=== PATIENT | female | born 1950 | race Caucasian/White ===

== ENCOUNTER 2017-02-08 11:04 | Inpatient (IN) | payer OTHER ==
[2017-02-08 11:45] LABS: BASOPHIL 0.9 % (0-2.0); EOSINOPHIL 1.6 % (0-4.5); MCH 28.3 pg (25.7-33.7); MCHC 32.8 g/dl (32.0-36.0); MEAN CELL VOLUME 86.1 fl (80-96); MEAN PLT VOLUME 8.4 fl (7.5-11.1); NEUTROPHILS 47.4 % (42.8-82.8); PLATELET COUNT 190 K/MM3 (134-434)
--- NOTE | 2017-02-08 11:45 | PDOC ---
History of Present Illness - General History Source: Patient Exam Limitations: No Limitations <Pollo Allan - Last Filed: 02/08/17 14:56> - History of Present Illness Initial Comments: 02/08/17 15:08 Patient is a 66 year old female with significant medical hx of CVA , IDDM, HTN, HLD who is presenting to the ED for dysphagia. According to family, the patient has speech that is difficult to understand since her last visit in the ED in 2015. She was last seen well at 7 AM this morning by her ; the patient was talking on the phone and was reportedly speaking at baseline (per she has somewhat intelligible speech). Around 9:30, the patient woke up her and he reports that she was not making sense and that her speech was a lot worse than before. The states that her blood sugar was measured at 560 by EMS. BP on arrival was slightly hypertensive. PMD: Daily Suárez MD <Argentina Chin - Last Filed: 02/08/17 15:10> - General Chief Complaint: Weakness Stated Complaint: SOB Time Seen by Provider: 02/08/17 11:23 NIH Stroke Scale - Last Known Well Date/Time & Onset Date Last Known Well: 02/08/17 Time Last Known Well: 07:00 - Initial Evaluation Level of consciousness: Alert Ask patient the month and their age: Both incorrect Ask patient to open & close eyes; make fist and let go: Obeys one correctly Best gaze (horizontal eye movement): Normal Visual field testing: No visual field loss Facial paresis (Show teeth/raise eyebrows/close eyes tight): Normal symmetrical movement Motor Function: Left Arm: Normal Motor Function: Right Arm: Some effort against gravity Motor Function: Left Leg: Normal (extends leg 30 degrees for 5 seconds without drift) Motor Function: Right Leg: Drift (exam limited to pts ability to communicate) Limb Ataxia: No ataxia Sensory(Use pinprick test arms,legs,trunk,face/side to side): Normal Best language (Describe picture, name items, read sentences): Severe aphasia Dysarthria (read several words): Near unintelligible or unable to speak Extinction and Inattention: No abnormality - Total Score NIH Stroke Scale Score: 10 <Pollo Allan - Last Filed: 02/08/17 14:56> tPA Exclusion checklist 3-4.5h - Time Elapsed Date last known well: 02/08/17 Time last known well: 07:00 Elaspsed time: Day(s) and 7 Hour(s) and 56 Minutes - Thrombolytic Therapy Candidate Is patient eligible for thrombolytic therapy: No - Ineligibility reason(s) Reasons No tPA given: Outside of window - delayed arrival <Pollo Allan - Last Filed: 02/08/17 14:56> Past History - Past Medical History CVA: Yes (2007, 2012, 2014, RIGHT SIDED RESIDUAL WEAKNESS) Diabetes: Yes (TYPE 2) GI Disorders: Yes (REFLUX) Disorders: No HTN: Yes Hypercholesterolemia: Yes Liver Disease: No Suicide Attempt (Hx): No Thyroid Disease: No - Surgical History Abdominal Surgery: Yes (HERNIA REPAIR X 2) Appendectomy: No Cardiac Surgery: No Cholecystectomy: Yes Lung Surgery: No Neurologic Surgery: No Orthopedic Surgery: No - Immunization History Immunization Up to Date: Yes - Psycho/Social/Smoking Cessation Hx Anxiety: No Suicidal Ideation: No Smoking Status: Yes Smoking History: Never smoked Have you smoked in the past 12 months: No Number of Cigarettes Smoked Daily: 1 If you are a former smoker, when did you quit?: states she smokes a couple per year Information on smoking cessation initiated: No 'Breaking Loose' booklet given: 02/15/15 Hx Alcohol Use: No Drug/Substance Use Hx: No Substance Use Type: None Hx Substance Use Treatment: No <Pollo Allan - Last Filed: 02/08/17 14:56> <Argentina Chin - Last Filed: 02/08/17 15:10> - Past Medical History Allergies/Adverse Reactions: Allergies Allergy/AdvReac Type Severity Reaction Status Date / Time No Known Allergies Allergy Verified 05/19/16 15:17 Home Medications: Ambulatory Orders Aspirin/Dipyridamole [Aggrenox -] 1 combo PO BID 11/14/15 Bimatoprost [Lumigan] 1 each PO HS 05/19/16 Glyburide/Metformin HCl [Glyburide-Metformin 2.5-500 mg] 1 each PO BID 05/19/16 Losartan Potassium [Cozaar -] 50 mg PO DAILY 05/19/16 Omeprazole [Prilosec] 20 mg PO DAILY 05/19/16 Simvastatin [Zocor -] 20 mg PO HS 05/19/16 Review of Systems - Review of Systems Comments:: 02/08/17 15:09 Unable to obtain. <GiuseppeArgentina - Last Filed: 02/08/17 15:10> *Physical Exam - Vital Signs Last Vital Signs Temp Pulse Resp BP Pulse Ox 98.2 F 67 18 179/86 99 02/08/17 11:27 02/08/17 11:27 02/08/17 11:27 02/08/17 11:27 02/08/17 11:27 <Pollo Allan - Last Filed: 02/08/17 14:56> - Vital Signs Last Vital Signs Temp Pulse Resp BP Pulse Ox 98.2 F 67 18 179/86 99 02/08/17 11:27 02/08/17 11:27 02/08/17 11:27 02/08/17 11:27 02/08/17 11:27 - Physical Exam Comments: 02/08/17 15:09 GENERAL: The patient is awake, alert, and fully oriented, Nontoxic - in no acute distress. HEAD: Normocephalic, atraumatic. EYES: extraocular movements intact, sclera anicteric, conjunctiva clear. ENT: Normal voice, Moist mucous membranes. NECK: Normal range of motion, supple LUNGS: Breath sounds equal, clear to auscultation bilaterally. No wheezes, no rhonchi, no rales. HEART: Regular rate and rhythm, normal S1 and S2 without murmur, rub or gallop. ABDOMEN: Soft, nontender, normoactive bowel sounds. No guarding, no rebound. . No CVA tenderness EXTREMITIES: Normal range of motion, no edema. NEUROLOGICAL: No facial assymetry, apahsic, RUE weakness, strength 5/5 on LUE, strength LLE 5/5 strength RLE -5/5, but limited ability to participate in neuro exam, finger to nose seems intact, sensation intact, cn2-12 intact, upgoing babinsky on RUE. PSYCH: uanble to asess SKIN: Warm, Dry, normal turgor. <Argentina Chin - Last Filed: 02/08/17 15:10> Heart Score/ECG Review - ECG Impressions Comment:: 02/08/17 12:39 Twelve-lead EKG was performed and reviewed by me. There is normal sinus rhythm with a normal rate. Rate of 61 nonspecific inventricular block flipped t waves in III and V3 <Pollo Allan - Last Filed: 02/08/17 14:56> ED Treatment Course - LABORATORY CBC & Chemistry Diagram: 02/08/17 11:40 02/08/17 11:40 - RADIOLOGY Radiology Studies Ordered: Category Date Time Status HEAD CT (STROKE) [CT] Stat CT Scan 02/08/17 11:36 Ordered <Pollo Allan - Last Filed: 02/08/17 14:56> - LABORATORY CBC & Chemistry Diagram: 02/08/17 11:40 02/08/17 11:40 - ADDITIONAL ORDERS Additional order review: Laboratory Results 02/08/17 11:40 INR 1.00 02/08/17 11:40 RBC 4.11 MCV 86.1 MCHC 32.8 RDW 14.0 MPV 8.4 Neutrophils % 47.4 Lymphocytes % 40.6 H Monocytes % 9.5 Eosinophils % 1.6 Basophils % 0.9 - RADIOLOGY Radiograph Interpretation: 02/08/17 12:[address] Impression: No evidence of acute intracranial hemorrhage, edema, midline shift, mass effect , or skull fracture. Old left cerebral infarct involving the left temporal lobe, parietal lobe with compensatory ex vacuo dilatation of the left lateral ventricle including temporal horn, Chronic ischemic changes in the left maira insular region, basal ganglia. Moderate coalescence supratentorial chronic white matter microangiopathic ischemic changes (left > right). CT evidence of acute territorial ischemia. Reported By: Vamshi Nelson MD <Argentina Chin - Last Filed: 02/08/17 15:10> Medical Decision Making - Medical Decision Making 02/08/17 11:57 66y F hx of IDDM, CVA (residual RUE weakness, and some dysarthria), HTN, HL presents for concern of possible stroke. The patient was heard speaking to her friend on the phone at 7am on the phone at baseline, and at 9:30, the pts went to wake up her and speech was unintelligible and much worse than baseline. On arrival the pts BGM was read as 'high'. magdaleno calzada was called, and ct was obtained, however pt is not a TPA candidate as last known nromal was at 7am, approx 4 hrs prior to arrival. 02/08/17 11:[address] Ashley regarding stroke code Agreed that potential for stroke vs hyperglycemia but is out of window for tpa 02/08/17 12:34 ct head negative 02/08/17 12:[address] suárez agreed with admission for further management states her neurologist is dr. Blum - will consult dr. blum 02/08/17 13:00 02/08/17 13:02 case dw BUDGET SPECIALIST Pete agreed with admission for further mangemnet in stroke unit Case discussed in detail with admitting physician including history, physical exam and ancillary studies. Admitting physician has assumed care for the patient, will follow all pending diagnostics and will complete the evaluation and treatment. CRITICAL CARE DOCUMENTATION: I spent ~35 minutes of Critical Care time, excluding separately billable procedures, involving high complexity decision making to assess, manipulate and support vital system function(s) to treat single or multiple vital organ system failure and/or to prevent further life threatening deterioration of the patient' s condition. 02/08/17 14:45 <Pollo Allan - Last Filed: 02/08/17 14:56> *DC/Admit/Observation/Transfer - Discharge Dispostion Admit: Yes <Pollo Allan - Last Filed: 02/08/17 14:56> - Attestations Scribe Attestion: 02/08/17 15:10 Documentation prepared by Argentina Chin, acting as medical fee clerk for Pollo Allan MD. <Argentina Chin - Last Filed: 02/08/17 15:10> Diagnosis at time of Disposition: Dysarthria, Hyperglycemia - Discharge Dispostion Condition at time of disposition: Guarded
[2017-02-08] MEDS: SODIUM CHLORIDE 1,000 ML IV SCH (11:59)
[2017-02-08 12:09] LABS: VENOUS PH 7.36 (7.32-7.42)
[2017-02-08 12:11] LABS: VENOUS BLOOD GAS HCO3 25.9 meq/L (19-25)
[2017-02-08 12:14] LABS: ALK PHOS 101 U/L (45-117); ANION GAP 9 (8-16); BILIRUBIN,TOTAL 0.7 mg/dL (0.2-1.0); CALCIUM 9.4 mg/dL (8.5-10.1); CHOLESTEROL 179 mg/dL (50-200); CO2 30 mmol/L (21-32); COCKROFT - GAULT 57.4515; LDL CHOLESTEROL (ONLY SJRH) 103 mg/dL (5-100); SGOT/AST 11 U/L (15-37); SGPT/ALT 14 U/L (12-78); TOT PROT 7.5 g/dl (6.4-8.2); TROPONIN I < 0.02 ng/ml (0.00-0.05)
[2017-02-08 12:18] LABS: GLUCOSE,RANDOM 431 mg/dL (74-106)
[2017-02-08] MEDS ORDERED: ASPIRIN 81 MG CHEWABLE TABLETS PO ONE (12:33)
[2017-02-08] MEDS ORDERED: INSULIN REGULAR HUMAN 100 UNITS/ML *VIAL IVPUSH ONE (12:35)
[2017-02-08] MEDS ORDERED: ASPIRIN 81 MG CHEWABLE TABLETS ONE (12:38)
[2017-02-08] MEDS ORDERED: INSULIN REGULAR HUMAN 100 UNITS/ML *VIAL ONE (12:39)
--- NOTE | 2017-02-08 13:05 | HP ---
CHIEF COMPLAINT: altered mental status, slurred/dysarthria speech. PCP: Jose Armando De La Paz HISTORY OF PRESENT ILLNESS: 66y F hx of IDDM, CVA (residual RUE weakness, and some dysarthria), HTN, HL presents for concern of possible stroke. The patient was heard speaking to her friend on the phone at 7am on the phone at baseline, and at 9:30, the pts went to wake up her and speech was unintelligible and much worse than baseline. On arrival the pts BGM was read as 'high'. magdaleno calzada was called, and ct was obtained, however pt is not a TPA candidate as last known nromal was at 7am, approx 4 hrs prior to arrival. While in the ER a Magdaleno Eric was called however she was out of the window for any TPA. ER course was notable for: (1) hyperglycemia with out DKA, treated with insulin (2) dysarthria, monitor for any changes, (3) Recent Travel: PAST MEDICAL HISTORY: CVA x 3 with right arm weakness and some dysarthria but now worsening, HTN, HLD , IDDM, PAST SURGICAL HISTORY: Social History: Smoking: Alcohol: Drugs: Family History: Allergies No Known Allergies Allergy (Verified 05/19/16 15:17) HOME MEDICATIONS: Home Medications Medication Instructions Recorded Aspirin/Dipyridamole [Aggrenox -] 1 combo PO BID 11/14/15 Bimatoprost [Lumigan] 1 each PO HS 05/19/16 Glyburide/Metformin HCl 1 each PO BID 05/19/16 [Glyburide-Metformin 2.5-500 mg] Losartan Potassium [Cozaar -] 50 mg PO DAILY 05/19/16 Omeprazole [Prilosec] 20 mg PO DAILY 05/19/16 Simvastatin [Zocor -] 20 mg PO HS 05/19/16 REVIEW OF SYSTEMS CONSTITUTIONAL: Absent: fever, chills, diaphoresis, generalized weakness, malaise, loss of appetite, weight change HEENT: Absent: rhinorrhea, nasal congestion, throat pain, throat swelling, difficulty swallowing, mouth swelling, ear pain, eye pain, visual changes CARDIOVASCULAR: Absent: chest pain, syncope, palpitations, irregular heart rate, lightheadedness , peripheral edema RESPIRATORY: Absent: cough, shortness of breath, dyspnea with exertion, orthopnea, wheezing, stridor, hemoptysis GASTROINTESTINAL: Absent: abdominal pain, abdominal distension, nausea, vomiting, diarrhea, constipation, melena, hematochezia GENITOURINARY: Absent: dysuria, frequency, urgency, hesitancy, hematuria, flank pain, genital pain MUSCULOSKELETAL: Absent: myalgia, arthralgia, joint swelling, back pain, neck pain SKIN: Absent: rash, itching, pallor HEMATOLOGIC/IMMUNOLOGIC: Absent: easy bleeding, easy bruising, lymphadenopathy, frequent infections ENDOCRINE: Absent: unexplained weight gain, unexplained weight loss, heat intolerance, cold intolerance NEUROLOGIC: Absent: headache, focal weakness or paresthesias, dizziness, unsteady gait, seizure, mental status changes, bladder or bowel incontinence (+) dysarthria, newer changes and chronic right sided weakness PSYCHIATRIC: Absent: anxiety, depression, suicidal or homicidal ideation, hallucinations. PHYSICAL EXAMINATION Vital Signs - 24 hr 02/08/17 11:27 Temperature 98.2 F Pulse Rate 67 Respiratory 18 Rate Blood Pressure 179/86 O2 Sat by Pulse 99 Oximetry (%) GENERAL: Awake, alert, and fully oriented, in no acute distress. HEAD: Normal with no signs of trauma. NECK: Normal range of motion, supple without lymphadenopathy, JVD, or masses. LUNGS: Breath sounds equal, clear to auscultation bilaterally. No wheezes, and no crackles. No accessory muscle use. HEART: Regular rate and rhythm, normal S1 and S2 without murmur, rub or gallop. ABDOMEN: Soft, nontender, not distended, normoactive bowel sounds, no guarding, no rebound, no masses. No hepatomegaly or splenomegaly. MUSCULOSKELETAL: Normal range of motion at all joints. No bony deformities or tenderness. No CVA tenderness. right arm weakness, chronic UPPER EXTREMITIES: 2+ pulses, warm, well-perfused. No cyanosis. No clubbing. No peripheral edema. LOWER EXTREMITIES: 2+ pulses, warm, well-perfused. No calf tenderness. No peripheral edema. NEUROLOGICAL: Cranial nerves II-XII intact. Normal speech. Normal gait. PSYCHIATRIC: Cooperative. Good eye contact. Appropriate mood and affect. SKIN: Warm, dry, normal turgor, no rashes or lesions noted, normal capillary refill. Laboratory Results - last 24 hr 02/08/17 02/08/17 02/08/17 11:40 11:40 11:40 WBC 5.0 D RBC 4.11 Hgb 11.6 Hct 35.4 MCV 86.1 MCHC 32.8 RDW 14.0 Plt Count 190 MPV 8.4 Neutrophils % 47.4 Lymphocytes % 40.6 H Monocytes % 9.5 Eosinophils % 1.6 Basophils % 0.9 INR 1.00 VBG pH POC VBG pCO2 POC VBG pO2 Mixed VBG HCO3 Sodium 136 Potassium 4.5 Chloride 97 L Carbon Dioxide 30 Anion Gap 9 BUN 22 H D Creatinine 1.0 Creat Clearance w eGFR 55.47 Random Glucose 431 H* Calcium 9.4 Total Bilirubin 0.7 AST 11 L D ALT 14 D Alkaline Phosphatase 101 Creatine Kinase 68 Troponin I < 0.02 Total Protein 7.5 Albumin 4.0 Triglycerides 144 D Cholesterol 179 D Total LDL Cholesterol 103 H HDL Cholesterol 59 D Blood Type Antibody Screen 02/08/17 02/08/17 11:40 12:00 WBC RBC Hgb Hct MCV MCHC RDW Plt Count MPV Neutrophils % Lymphocytes % Monocytes % Eosinophils % Basophils % INR VBG pH 7.36 POC VBG pCO2 47.0 POC VBG pO2 48.0 Mixed VBG HCO3 25.9 H Sodium Potassium Chloride Carbon Dioxide Anion Gap BUN Creatinine Creat Clearance w eGFR Random Glucose Calcium Total Bilirubin AST ALT Alkaline Phosphatase Creatine Kinase Troponin I Total Protein Albumin Triglycerides Cholesterol Total LDL Cholesterol HDL Cholesterol Blood Type O POSITIVE Antibody Screen Negative Head CT Impression: No evidence of acute intracranial hemorrhage, edema, midline shift, mass effect , or skull fracture. Old left cerebral infarct involving the left temporal lobe, parietal lobe with compensatory ex vacuo dilatation of the left lateral ventricle including temporal horn, Chronic ischemic changes in the left maira insular region, basal ganglia. Moderate coalescence supratentorial chronic white matter microangiopathic ischemic changes (left > right). CT evidence of acute territorial ischemia. Reported By: Vamshi Nelson MD ASSESSMENT/PLAN: 66 yr old female with changes to her already difficult speak and dysarthria as well as hyperglycemia without DKA 1. Dysarthria -swallow exam -monitor for changes continually -pulse ox sats -speech and cog evaluation -head CT completed. -received ASA 162 in ER and outside the window for TPA 2. hyperglycemia -neg for DKA -finger sticks and sliding scale ordered for monitoring -ADA diet -IVF as needed -A1C ordered routine 3. HTN -Continue meds 4. GI/DVT ppx Visit type - Emergency Visit Emergency Visit: Yes ED Registration Date: 02/08/17 Care time: The patient presented to the Emergency Department on the above date and was hospitalized for further evaluation of their emergent condition. - New Patient This patient is new to me today: Yes Date on this admission: 02/08/17 - Critical Care Critical Care patient: No
[2017-02-08 13:12] LABS: URINE APPEARANCE CLEAR; URINE BILIRUBIN NEGATIVE (NEGATIVE); URINE BLOOD NEGATIVE (NEGATIVE); URINE COLOR STRAW; URINE GLUCOSE (UA) 3+ (NEGATIVE); URINE KETONE NEGATIVE (NEGATIVE); URINE LEUK ESTERASE NEGATIVE (NEGATIVE); URINE NITRITE NEGATIVE (NEGATIVE); URINE PROTEIN NEGATIVE (NEGATIVE); URINE UROBILINOGEN NEGATIVE E.U./dl (0.2-1.0)
[2017-02-08] MEDS ORDERED: HEMOQUE TEST 1 EACH EACH ONE (14:04)
[2017-02-08] MEDS ORDERED: LABETALOL HCL 5 MG/1 ML (100MG/20 ML VIAL) IVPUSH ONE (14:08)
[2017-02-08] MEDS ORDERED: LABETALOL HCL 5 MG/1 ML (200MG/40ML VIAL) IVPB ONE (14:10)
--- NOTE | 2017-02-08 14:56 | CONSULT ---
Admitting History and Physical - Admission History of Present Illness: Peer EMR: "HISTORY OF PRESENT ILLNESS: 66y F hx of IDDM, CVA (residual RUE weakness, and some dysarthria), HTN, HL presents for concern of possible stroke. The patient was heard speaking to her friend on the phone at 7am on the phone at baseline, and at 9:30, the pts went to wake up her and speech was unintelligible and much worse than baseline. On arrival the pts BGM was read as 'high'. code calzada was called, and ct was obtained, however pt is not a TPA candidate as last known nromal was at 7am, approx 4 hrs prior to arrival. While in the ER a Code Eric was called however she was out of the window for any TPA. ER course was notable for: (1) hyperglycemia with out DKA, treated with insulin (2) dysarthria, monitor for any changes," Known to me from speech/language evaluation for Aphasia 06/2016. Pt presented with moderate to severe Aphasia/Apraxia which varies from non verbal,rare responses to some spontaneosly retrieval of strings of words, containing neologisms and paraphasic errors, and perseveration. She was unable to name upon confrontation, repeat her name or simple words, or count in unison She could write her first jannie but not say it. Examples of verbalizations included "more better", "excuse me", "doesnt matter", "my daughter, my first", "three boys", "I can nothing" "I was to xxxx but can't do it." She was referred to a bilingual speech pathologist for follow up. As compared to my last interaction with this pt in 2016, there is a significant deterioration in functional language legal receptionist and expression. Family was not present to interview. History Source: Medical Record Limitations to Obtaining History: Language Barrier, Other (Aphasia. Drying Can Worker assisted) - Past Medical History EDUCATION TRAINER: Yes: CVA, TIA Cardiovascular: Yes: HTN, Hyperlipdemia Endocrine: Yes: Diabetes Mellitus - Smoking History Smoking history: Never smoked Have you smoked in the past 12 months: No Aproximately how many cigarettes per day: 1 If you are a former smoker, when did you quit?: states she smokes a couple per year - Alcohol/Substance Use Hx Alcohol Use: No - Social History ADL: Independent History of Recent Travel: No History - Admission Reason For Visit: DYSATHRIA,HYPERGLYCEMIA - Diagnostics X-ray: Report Reviewed CT Scan: Report Reviewed - General Mental Status: Awake and Alert Attention: Intact Ability to Follow Directions: Poor - Hearing Hearing: Functional Speech Evaluation - Communication Primary Language: RWANDAN Communication: Yes: Aphasia, Language Barrier Oral Expression Ability: Yes: Severe Impairment - Speech Production Apraxia: Yes Able to Make Needs Known: Yes: Severely Impaired Intelligibility: Yes: Severely Impaired - Speech Characteristics Voice Loudness: Normal Voice Pitch: Yes: Normal Voice Phonatory-based Quality: Yes: Normal Speech Pattern: Impaired Speech Clarity: < 25% Nasal Resonance: Normal Articulation: Yes: Precise - Language/Auditory Comprehension Observation: Able to respond to yes/no queries: No (inconsistent and unreliable) , Yes/No Confusion: Yes, Comprehends Conversational Speech: Yes (social speech) , Benefits from Repetiton: Yes - Language/Verbal Expression Aphasia: Yes: Anomia, Impaired Repetition (unable to repeat), Paraphrasic Errors , Neologisms, Apraxia, Sound Errors Able to Respond to Simple Queries: Yes: Severely Impaired Able to Communicate Wants and Needs: Yes: Severely Impaired Functional Communication Status: Yes: Severely Impaired - Swallow Evaluation/Bedside Assessment Current Nutritional Intake: Regular, Thin Liquids Oral Secretions: Yes: WFL Timing of Swallow: WFL Coughing/Throat Clear: No Change in Voice: No Recommendations - Speech Evaluation, Impression/Plan Impression: As compared to my last interaction with this pt in 2016, there is a significant deterioration in functional language legal receptionist and expression. Family was not present to interview. Pt followed rare whole body commands, with yes/no responses inconsistent and unreliable.Verbal output was predominantly unintelligible jargon, sounding like Argentine, but unintelligible to a Argentine speaker. No frustration demonstated.No dysarthria or dysphagia. - Disposition Discharge to: Alf Facility (with Argentine speaking sp path ideally ( eg [facility] [place])) - Dysphagia Impressions/Plan Dysphagia Impressions: Ongoing Evaluation *Silent aspiration: cannot be R/O at bedside Recommendations: Neuro Consult
[2017-02-08 15:23] VITALS: BMI 26.4
[2017-02-08] MEDS ORDERED: INSULIN SLIDING SCALE (NOVOLOG) 1 VIAL SQ SCH ×3 (16:30)
[2017-02-08] MEDS ORDERED: metFORMIN HCL 500 MG TABLET (FP) PO SCH (16:30)
[2017-02-08] MEDS ORDERED: glyBURIDE 2.5 MG TABLET (FP) PO SCH (16:30)
[2017-02-08] MEDS: metFORMIN HCL 500 MG TABLET (FP) PO SCH (16:53)
[2017-02-08] MEDS: INSULIN SLIDING SCALE (NOVOLOG) 1 VIAL SQ SCH ×2 (16:54→21:58)
[2017-02-08] MEDS ORDERED: PT OWN MED DRAWER 7, Y5N ONE (21:52)
[2017-02-08] MEDS: BIMATOPROST OU SCH (21:53)
[2017-02-08] MEDS: ATORVASTATIN CA 10 MG TABLET (FP) PO SCH (21:55)
[2017-02-08] MEDS: QUEtiapine FUMARATE 25 MG TABLET (FP) PO SCH (21:55)
[2017-02-08] MEDS ORDERED: PATIENT'S OWN MEDICATION (NON-FORMULARY) (Glyburide/Metformin Hcl [Glyburide-Metformin 2.5 PO SCH (22:00)
[2017-02-08] MEDS ORDERED: ASPIRIN/DIPYRIDAMOLE 25 MG/200 MG CAPSULE (FP) PO SCH (22:00)
[2017-02-08] MEDS ORDERED: BIMATOPROST PO SCH (22:00)
[2017-02-09] MEDS: metFORMIN HCL 500 MG TABLET (FP) PO SCH ×2 (06:16→17:18)
[2017-02-09] MEDS: INSULIN SLIDING SCALE (NOVOLOG) 1 VIAL SQ SCH ×4 (06:17→21:20)
[2017-02-09 07:26] LABS: MCH 28.7 pg (25.7-33.7); MEAN CELL VOLUME 86.9 fl (80-96); MEAN PLT VOLUME 8.1 fl (7.5-11.1); PLATELET COUNT 179 K/MM3 (134-434); RDW 14.2 % (11.6-15.6)
[2017-02-09 07:46] LABS: INR 1.02 (0.82-1.09); PROTHROMBIN TIME (PATIENT) 11.2 SEC (9.98-11.88)
[2017-02-09 07:49] LABS: ACTIVATED PTT 31.7 SECONDS (26.9-34.4)
[2017-02-09 07:58] LABS: CALCIUM 8.8 mg/dL (8.5-10.1)
[2017-02-09 08:00] LABS: COCKROFT - GAULT 61.6335; CREATININE 0.9 mg/dL (0.55-1.02)
[2017-02-09] MEDS: QUEtiapine FUMARATE 25 MG TABLET (FP) PO SCH ×2 (09:22→21:20)
[2017-02-09] MEDS: PANTOPRAZOLE 20 MG TABLET (FP) PO SCH (09:22)
[2017-02-09] MEDS: BIMATOPROST OU SCH (09:43)
[2017-02-09] MEDS ORDERED: METOPROLOL SUCCINATE 25 MG TAB.SR.24H (FP) PO SCH (10:00)
[2017-02-09] MEDS ORDERED: LOSARTAN POTASSIUM 50 MG TABLET (FP) PO SCH (10:00)
--- NOTE | 2017-02-09 11:21 | EKG ---
Test Reason : Blood Pressure : / mmHG Vent. Rate : 061 BPM Atrial Rate : 061 BPM P-R Int : 132 ms QRS Dur : 126 ms QT Int : 438 ms P-R-T Axes : 047 -25 -09 degrees QTc Int : 440 ms POOR DATA QUALITY, INTERPRETATION MAY BE ADVERSELY AFFECTED NORMAL SINUS RHYTHM RIGHT BUNDLE BRANCH BLOCK ABNORMAL ECG Confirmed by SHELTON BULLOCK MD ([id number]) on 02/09/2017 11:21:08 AM Referred By: Confirmed By:SHELTON BULLOCK MD
[2017-02-09] MEDS ORDERED: INSULIN (NOVOLOG) ASPART 100 UNITS/ML 10ML VIAL ONE ×2 (12:15→21:18)
[2017-02-09] MEDS: CLOPIDOGREL BISULFATE 75 MG TABLET (FP) PO SCH (12:16)
[2017-02-09] MEDS: SODIUM CHLORIDE 1,000 ML IV SCH (12:17)
--- NOTE | 2017-02-09 14:01 | PN ---
Physical Exam: SUBJECTIVE: Patient seen and examined at bedside. OBJECTIVE: Vital Signs Period Temp Pulse Resp BP Sys/Glass Pulse Ox Last 24 Hr 97.4 F-98.5 F 56-73 17-18 135-199/63-104 96-98 GENERAL/NEURO: The patient is awake, alert. Speech is clear and understandable but patient is confused. Cannot state her name. Points to her wrist band and states "that's my sister." Thinks she is home. When redirected to her name and surroundings she became tearful, "I'm confused." Cranial nerves II through XII grossly intact. Gait not observed. HEAD: Normal with no signs of trauma. EYES: PERRL, extraocular movements intact, sclera anicteric, conjunctiva clear. No ptosis. LUNGS: Breath sounds equal, clear to auscultation bilaterally, no wheezes, no crackles, no accessory muscle use. HEART: Regular rate and rhythm, S1, S2 without murmur, rub or gallop. ABDOMEN: Soft, nontender, nondistended, normoactive bowel sounds, no guarding, no rebound, no hepatosplenomegaly, no masses. EXTREMITIES: 2+ pulses, warm, well-perfused, no edema. Laboratory Results - last 24 hr 02/08/17 02/08/17 02/08/17 14:08 16:52 20:34 WBC RBC Hgb Hct MCV MCHC RDW Plt Count MPV INR PTT (Actin FS) Sodium Potassium Chloride Carbon Dioxide Anion Gap BUN Creatinine POC Glucometer [phone] 159 Random Glucose Hemoglobin A1c % Calcium Triglycerides Cholesterol Total LDL Cholesterol HDL Cholesterol 02/09/17 02/09/17 02/09/17 00:00 05:17 06:00 WBC 8.0 D RBC 3.84 Hgb 11.0 Hct 33.3 MCV 86.9 MCHC 33.0 RDW 14.2 Plt Count 179 MPV 8.1 INR PTT (Actin FS) Sodium Potassium Chloride Carbon Dioxide Anion Gap BUN Creatinine POC Glucometer 76 123 Random Glucose Hemoglobin A1c % Calcium Triglycerides Cholesterol Total LDL Cholesterol HDL Cholesterol 02/09/17 02/09/17 02/09/17 06:00 06:00 06:00 WBC RBC Hgb Hct MCV MCHC RDW Plt Count MPV INR 1.02 PTT (Actin FS) 31.7 Sodium 140 Potassium 4.1 Chloride 103 Carbon Dioxide 26 Anion Gap 11 BUN 20 H Creatinine 0.9 POC Glucometer Random Glucose 153 H D Hemoglobin A1c % 10.5 H D Calcium 8.8 Triglycerides 122 Cholesterol 165 Total LDL Cholesterol 97 HDL Cholesterol 55 02/09/17 12:13 WBC RBC Hgb Hct MCV MCHC RDW Plt Count MPV INR PTT (Actin FS) Sodium Potassium Chloride Carbon Dioxide Anion Gap BUN Creatinine POC Glucometer 252 Random Glucose Hemoglobin A1c % Calcium Triglycerides Cholesterol Total LDL Cholesterol HDL Cholesterol Active Medications Generic Name Dose Route Start Last Admin Trade Name Kiana PRN Reason Stop Dose Admin Atorvastatin Calcium 10 mg 02/08/17 22:00 02/08/17 21:55 Lipitor - PO 10 mg HS MINISTERIO Administration Clopidogrel Bisulfate 75 mg 02/09/17 10:30 02/09/17 12:16 Plavix - PO 75 mg DAILY MINISTERIO Administration Sodium Chloride 1,000 mls @ 42 mls/hr 02/08/17 11:45 02/09/17 12:17 Normal Saline - IV 42 mls/hr ASDIR MINISTERIO Administration Insulin Aspart 1 vial 02/08/17 16:30 02/09/17 12:16 Novolog Vial Sliding Scale - SQ 6 unit ACHS MINISTERIO Administration Protocol Metformin HCl 1,000 mg 02/08/17 16:30 02/09/17 06:16 Glucophage - PO 1,000 mg BIDAC MINISTERIO Administration Metoprolol Succinate 25 mg 02/09/17 10:00 02/09/17 09:22 Toprol Xl - PO 25 mg DAILY MINISTERIO Administration Non-Formulary Medication 1 each 02/08/17 22:00 02/09/17 09:43 Bimatoprost [Lumigan] OU Not Given BID MINISTERIO Pantoprazole Sodium 20 mg 02/09/17 10:00 02/09/17 09:22 Protonix - PO 20 mg DAILY MINISTERIO Administration Quetiapine Fumarate 12.5 mg 02/08/17 22:00 02/09/17 09:22 Seroquel - PO 12.5 mg BID MINISTERIO Administration Imaging 02/08/17 CT head: no acute process; old left cerebral infarct involving the left temporal and parietal lobes, compressive dilatation of the left lateral ventricle including the left temporal horn; chronic ischemic changes ASSESSMENT/PLAN 66 year-old female with a PMH of HTN, HLD, CVA x 2 (2011, 2012), TIA (2014), and IDDM, admitted for worsening speech. Dysarthria r/o CVA v. TIA --02/08 CT head: no acute process --recent cardiac workup unremarkable; 11/28/16 echo showed LV normal, RV normal, trace to mild MR and TR; 11/28/16 Holter monitor showed sinus rhythm, no afib/aflutter, no dysrhythmias --continue statin, Plavix (NOTE: confirmed with Ana María's patient is on Plavix; last took aggrenox in August 2016) --will hold daytime seroquel to better assess mental status; change to [facility] --request for neuro consult for Dr. De La Paz entered IDDM --blood glucose was 431 on admission, today 153 --continue metformin, Novolog sliding scale coverage F/E/N Fluids: PO intake adequate Electrolytes: replete as indicated Nutrition: diabetic, low sodium DVT prophylaxis: subq heparin Physical therapy evaluation Dispo: continues to require inpatient care. Visit type - Emergency Visit Emergency Visit: Yes ED Registration Date: 02/08/17 Care time: The patient presented to the Emergency Department on the above date and was hospitalized for further evaluation of their emergent condition. - New Patient This patient is new to me today: Yes Date on this admission: 02/09/17 - Critical Care Critical Care patient: No
[2017-02-09] MEDS: HEPARIN NA (PORCINE) 5,000 UNITS/ML 1ML VIAL SQ SCH (21:19)
[2017-02-09] MEDS: ATORVASTATIN CA 10 MG TABLET (FP) PO SCH (21:20)
[2017-02-09] MEDS: LATANOPROST 0.005% OPHTH SOLN 2.5ML BOTTLE OU SCH (21:25)
[2017-02-10] MEDS: SODIUM CHLORIDE 1,000 ML IV SCH ×2 (02:00→16:13)
[2017-02-10] MEDS: INSULIN SLIDING SCALE (NOVOLOG) 1 VIAL SQ SCH ×4 (06:04→21:33)
[2017-02-10] MEDS: metFORMIN HCL 500 MG TABLET (FP) PO SCH ×2 (06:04→17:19)
[2017-02-10] MEDS ORDERED: PT OWN MED DRAWER 7, Y5N ONE ×2 (06:36→21:29)
[2017-02-10] MEDS: PANTOPRAZOLE 20 MG TABLET (FP) PO SCH (09:27)
[2017-02-10] MEDS: HEPARIN NA (PORCINE) 5,000 UNITS/ML 1ML VIAL SQ SCH ×2 (09:27→21:37)
[2017-02-10] MEDS: METOPROLOL SUCCINATE 25 MG TAB.SR.24H (FP) PO SCH ×2 (09:27→21:36)
[2017-02-10] MEDS: CLOPIDOGREL BISULFATE 75 MG TABLET (FP) PO SCH (09:27)
--- NOTE | 2017-02-10 16:38 | CON.NEURO ---
Consult Consult Specialty:: Neurology for Dr. De La Paz Reason for Consultation:: Possible stroke - History of Present Illness Chief Complaint: Pt. is unable to relate complaint due to aphasia but keeps pointing to her right face. History of Present Illness: 66y F hx of IDDM, CVA (residual RUE weakness, and some dysarthria), HTN, HL presented yesterday for concern of possible stroke. The patient was heard speaking to her friend on the phone at 7am at baseline, and at 9:30 the pt went to wake up her and speech was unintelligible and much worse than baseline. On arrival the pts BGM was read as 'high'. magdaleno calzada was called, and ct was obtained, however pt was not a TPA candidate as last known normal was at 7am, approx 4 hrs prior to arrival. While in the ER a Magdaleno Reyes was called however she was out of the window for any TPA. ER course was notable for: (1) hyperglycemia with out DKA, treated with insulin (2) dysarthria, monitor for any changes, Pt. is unable to relate history due to a sensory aphasia causing diminished comprehension. Only points to her right face as if there is something wring, keeps repeating "my face, my face", also reports difficulty with vision in right eye. - History Source History Provided By: Patient, Medical Record Limitations to Obtaining History: Clinical Condition - Past Medical History BRAND LEAD: Yes: CVA, TIA Cardio/Vascular: Yes: HTN, Hyperlipdemia ...: No Endocrine: Yes: Diabetes Mellitus - Alcohol/Substance Use Hx Alcohol Use: No - Smoking History Smoking history: Never smoked Have you smoked in the past 12 months: No Aproximately how many cigarettes per day: 1 If you are a former smoker, when did you quit?: states she smokes a couple per year - Social History ADL: Independent History of Recent Travel: No Home Medications - Allergies Allergies/Adverse Reactions: Allergies Allergy/AdvReac Type Severity Reaction Status Date / Time No Known Allergies Allergy Verified 05/19/16 15:17 - Home Medications Home Medications: Ambulatory Orders Bimatoprost [Lumigan] 1 drop OU DAILY 02/08/17 Clopidogrel Bisulfate [Plavix -] 75 mg PO DAILY 02/08/17 Famotidine 20 mg PO DAILY 02/08/17 Insulin Glargine,Hum.rec.anlog [Lantus Solostar PEN (NF)] 25 units SQ DAILY Metformin HCl [Glucophage] 1,000 mg PO BID 02/08/17 Metoprolol Succinate [Toprol Xl -] 25 mg PO DAILY 02/08/17 Quetiapine Fumarate [Seroquel -] 12.5 mg PO BID 02/08/17 Simvastatin 20 mg PO DAILY 02/08/17 Physical Exam-Neuro Vital Signs: Vital Signs Temperature 98.1 F 02/10/17 14:00 Pulse Rate 63 02/10/17 14:00 Respiratory Rate 18 02/10/17 14:00 Blood Pressure 135/76 02/10/17 14:00 O2 Sat by Pulse Oximetry (%) 96 02/10/17 10:00 Labs: CBC, BMP 02/09/17 06:00 02/09/17 06:00 INR, PTT INR 1.02 (0.82-1.09) 02/09/17 06:00 - Neuro Exam Level Of Consciousness: Yes: Alert, Oriented to Person, Oriented to Place Speech: Wernicke's Aphasia (+logorrhea, +literal aphasia+impaired comprehension of language) Dominant Hand: Right (+ RUE drift) Mini Mental Exam: Unable to test secondary to sensory aphasia Cranial Nerves II-XII Intact: No (+ right hemianopsia to threat. right cent. facial) Gag: Present DTR's: 0 Left Achilles (Absent left knee jerk, right is 3+), 2+ Right Tricep, 2 + Left Brachioradialis, 2+ Right Brachioradialis, 2+ Right Achilles, 3+ Right Bicep Motor Strength: 4/5: Right Arm (+drift), 5/5: Left Arm, Left Leg, Right Leg (+ 4 +/5 distal LE weakness on right) Gait: Other (slight right hemiparetic gait) NIH Stroke Scale - Total Score NIH Stroke Scale Score: 0 Imaging - Results Cat Scan: Report Reviewed (Old left cerebral infarct involving the left temporal lobe, parietal lobe with compensatory ex vacuo dilatation of the left lateral ventricle including temporal horn, Chronic ischemic changes in the left maira insular region, basal ganglia. Moderate coalescence supratentorial chronic white matter microangiopathic ischemic changes (left > right). CT evidence of acute territorial ischemia. Reported By: Vamshi Nelson MD) Assessment/Plan Pt. is reported to have had CVAx 3, it is unclear whether these events were in the same arterial territory that is noted on head CT. This admission is for what is reported as worsened speech-unclear whether she had dysarthria or worsened aphasia. Pt. o/e has a right field cut, old right cent. facial and right hemiparesis that to my impression is old. There is no evidence of acute ischemia on imaging. Doubt new ischemic event, she may have had glycemic dyscontrol causing worsening of preexisting sensory aphasia or dysarthria. Suggest: 1) MRI brain to see whether there is evidence of acute ischemia 2) Cont. Clopidrogel 75 mg 3) PT/Rehab
--- NOTE | 2017-02-10 16:39 | PN ---
Physical Exam: SUBJECTIVE: Patient seen and examined. Out of bed, ambulating, washing up in the bathroom, chatting with aide. OBJECTIVE: Vital Signs Period Temp Pulse Resp BP Sys/Glass Pulse Ox Last 24 Hr 97.9 F-98.4 F 63-76 18-18 135-166/62-92 96-97 GENERAL: The patient is awake, alert, and fully oriented, in no acute distress. HEAD: Normal with no signs of trauma. EYES: PERRL, extraocular movements intact, sclera anicteric, conjunctiva clear. No ptosis. LUNGS: Breath sounds equal, clear to auscultation bilaterally, no wheezes, no crackles, no accessory muscle use. HEART: Regular rate and rhythm, S1, S2 without murmur, rub or gallop. ABDOMEN: Soft, nontender, nondistended, normoactive bowel sounds, no guarding, no rebound, no hepatosplenomegaly, no masses. EXTREMITIES: 2+ pulses, warm, well-perfused, no edema. NEUROLOGICAL: Cranial nerves II through XII grossly intact. CBCD WBC 8.0 K/mm3 (4.0-10.0) D 02/09/17 06:00 RBC 3.84 M/mm3 (3.60-5.2) 02/09/17 06:00 Hgb 11.0 GM/dL (10.7-15.3) 02/09/17 06:00 Hct 33.3 % (32.4-45.2) 02/09/17 06:00 MCV 86.9 fl (80-96) 02/09/17 06:00 MCHC 33.0 g/dl (32.0-36.0) 02/09/17 06:00 RDW 14.2 % (11.6-15.6) 02/09/17 06:00 Plt Count 179 K/MM3 (134-434) 02/09/17 06:00 MPV 8.1 fl (7.5-11.1) 02/09/17 06:00 CMP Sodium 140 mmol/L (136-145) 02/09/17 06:00 Potassium 4.1 mmol/L (3.5-5.1) 02/09/17 06:00 Chloride 103 mmol/L (98-107) 02/09/17 06:00 Carbon Dioxide 26 mmol/L (21-32) 02/09/17 06:00 Anion Gap 11 (8-16) 02/09/17 06:00 BUN 20 mg/dL (7-18) H 02/09/17 06:00 Creatinine 0.9 mg/dL (0.55-1.02) 02/09/17 06:00 Creat Clearance w eGFR 55.47 (>60) 02/08/17 11:40 Calcium 8.8 mg/dL (8.5-10.1) 02/09/17 06:00 Total Bilirubin 0.7 mg/dL (0.2-1.0) 02/08/17 11:40 AST 11 U/L (15-37) L D 02/08/17 11:40 ALT 14 U/L (12-78) D 02/08/17 11:40 Alkaline Phosphatase 101 U/L (45-117) 02/08/17 11:40 Total Protein 7.5 g/dl (6.4-8.2) 02/08/17 11:40 Albumin 4.0 g/dl (3.4-5.0) 02/08/17 11:40 Active Medications Generic Name Dose Route Start Last Admin Trade Name Blaineq PRN Reason Stop Dose Admin Atorvastatin Calcium 10 mg 02/08/17 22:00 02/09/17 21:20 Lipitor - PO 10 mg HS MINISTERIO Administration Clopidogrel Bisulfate 75 mg 02/09/17 10:30 02/10/17 09:27 Plavix - PO 75 mg DAILY MINISTERIO Administration Heparin Sodium (Porcine) 5,000 unit 02/09/17 22:00 02/10/17 09:27 Heparin - SQ 5,000 unit BID MINISTERIO Administration Sodium Chloride 1,000 mls @ 42 mls/hr 02/08/17 11:45 02/10/17 16:13 Normal Saline - IV Not Given ASDIR MINISTERIO Insulin Aspart 1 vial 02/08/17 16:30 02/10/17 12:32 Novolog Vial Sliding Scale - SQ 4 unit ACHS MINISTERIO Administration Protocol Latanoprost 1 drop 02/09/17 15:47 02/09/17 21:25 Xalatan 0.005% Eye Drops - OU 1 drop HS MINISTERIO Administration Metformin HCl 1,000 mg 02/08/17 16:30 02/10/17 06:04 Glucophage - PO 1,000 mg BIDAC MINISTERIO Administration Metoprolol Succinate 25 mg 02/10/17 10:00 02/10/17 09:27 Toprol Xl - PO 25 mg BID MINISTERIO Administration Pantoprazole Sodium 20 mg 02/09/17 10:00 02/10/17 09:27 Protonix - PO 20 mg DAILY MINISTERIO Administration Quetiapine Fumarate 12.5 mg 02/09/17 22:00 02/09/17 21:20 Seroquel - PO 12.5 mg HS MINISTERIO Administration ASSESSMENT/PLAN: Imaging 02/08/17 CT head: no acute process; old left cerebral infarct involving the left temporal and parietal lobes, compressive dilatation of the left lateral ventricle including the left temporal horn; chronic ischemic changes ASSESSMENT/PLAN 66 year-old female with a PMH of HTN, HLD, CVA x 2 (2011, 2012), TIA (2014), and IDDM, admitted for worsening speech. Dysarthria r/o CVA v. TIA --02/08 CT head: no acute process --recent cardiac workup unremarkable; 11/28/16 echo showed LV normal, RV normal, trace to mild MR and TR; 11/28/16 Holter monitor showed sinus rhythm, no afib/aflutter, no dysrhythmias --continue statin, Plavix (NOTE: confirmed with Ana María's patient is on Plavix; last took aggrenox in August 2016) --hold daytime seroquel to better assess mental status; changed to [facility] --seen and evaluated by neuro, MRI brain ordered IDDM --last three fingersticks 201, 144, 205 --continue metformin, Novolog sliding scale coverage F/E/N Fluids: PO intake adequate Electrolytes: replete as indicated Nutrition: diabetic, low sodium DVT prophylaxis: subq heparin Physical therapy evaluation Dispo: continues to require inpatient care. Full Code. Visit type - Emergency Visit Emergency Visit: Yes ED Registration Date: 02/08/17 Care time: The patient presented to the Emergency Department on the above date and was hospitalized for further evaluation of their emergent condition. - New Patient This patient is new to me today: No - Critical Care Critical Care patient: No
[2017-02-10] MEDS ORDERED: INSULIN (NOVOLOG) ASPART 100 UNITS/ML 10ML VIAL ONE (19:32)
[2017-02-10] MEDS: QUEtiapine FUMARATE 25 MG TABLET (FP) PO SCH (21:35)
[2017-02-10] MEDS: ATORVASTATIN CA 10 MG TABLET (FP) PO SCH (21:36)
[2017-02-10] MEDS: LATANOPROST 0.005% OPHTH SOLN 2.5ML BOTTLE OU SCH (21:38)
[2017-02-11] MEDS ORDERED: PT OWN MED DRAWER 7, Y5N ONE ×2 (05:18→21:48)
[2017-02-11] MEDS: metFORMIN HCL 500 MG TABLET (FP) PO SCH ×2 (06:02→16:56)
[2017-02-11] MEDS: INSULIN SLIDING SCALE (NOVOLOG) 1 VIAL SQ SCH ×4 (06:03→21:51)
[2017-02-11 07:16] LABS: MCH 29.1 pg (25.7-33.7); MCHC 33.8 g/dl (32.0-36.0); MEAN CELL VOLUME 86.2 fl (80-96); MEAN PLT VOLUME 8.2 fl (7.5-11.1); PLATELET COUNT 168 K/MM3 (134-434); RDW 14.1 % (11.6-15.6); WHITE BLOOD COUNT 5.7 K/mm3 (4.0-10.0)
[2017-02-11 07:37] LABS: ALBUMIN 3.4 g/dl (3.4-5.0); ANION GAP 7 (8-16); CALCIUM 8.7 mg/dL (8.5-10.1); CO2 28 mmol/L (21-32); GLUCOSE,RANDOM 149 mg/dL (74-106); MAGNESIUM 1.6 mg/dL (1.8-2.4)
[2017-02-11 07:42] LABS: ALK PHOS 70 U/L (45-117); BILIRUBIN,TOTAL 0.7 mg/dL (0.2-1.0); CREATININE 0.8 mg/dL (0.55-1.02); SGOT/AST 13 U/L (15-37); SGPT/ALT 12 U/L (12-78); TOT PROT 6.3 g/dl (6.4-8.2)
[2017-02-11] MEDS: HEPARIN NA (PORCINE) 5,000 UNITS/ML 1ML VIAL SQ SCH ×2 (09:49→21:57)
[2017-02-11] MEDS: METOPROLOL SUCCINATE 25 MG TAB.SR.24H (FP) PO SCH ×2 (09:49→21:49)
[2017-02-11] MEDS: PANTOPRAZOLE 20 MG TABLET (FP) PO SCH (09:49)
[2017-02-11] MEDS: CLOPIDOGREL BISULFATE 75 MG TABLET (FP) PO SCH (09:49)
--- NOTE | 2017-02-11 10:33 | PN ---
Progress Note, MICROBIOLOGICAL ANALYST - Note Progress Note: Pt continues to present with jargon output, rambling with limited ability to be understood by Guyanese speakers. Yes/no responses are unreliable. No Dysarthria or Aphasia noted. Very rare intelligible phrases are produced. Language deficits are worse than when I evaluated her in 2016. She was quite impaired then as well, however, there was some preserved auditory comprehension and production of intelligible words was intermittent and more frequent. Pt is tolerating diet well. Selected Entries 02/09/17 02/09/17 02/09/17 09:59 14:00 18:00 Breakfast 75% Lunch 75% Supper 100% Temperature 02/10/17 02/10/17 02/10/17 01:54 06:15 10:00 Breakfast Lunch Supper Temperature 98.4 F 98 F 98.3 F 02/10/17 02/10/17 02/10/17 14:00 21:00 22:04 Breakfast Lunch Supper 75% Temperature 98.1 F 98.1 F 02/11/17 02/11/17 01:00 05:00 Breakfast Lunch Supper Temperature 98.3 F 97.7 F Ideally, pt would benefit from Guyanese speaking speech path upon d/c. (If NH, [place] may be considered).
[2017-02-11] MEDS ORDERED: MAGNESIUM SULF 50% (8.12 MEQ/2 ML-1 GM VIAL) IVPB ONE (11:15)
--- NOTE | 2017-02-11 13:03 | PN ---
Physical Exam: SUBJECTIVE: Patient seen and examined. Reports feeling much better. States, "I want to go home." Feels that face and speech has improved. Nurse reports no acute change in condition. Pt denies CP, SOB, dizziness. states her speech is back to baseline. OBJECTIVE: Vital Signs - 24 hr 3 02/10/17 02/10/17 02/10/17 14:00 17:00 21:00 Temperature 98.1 F 98.1 F Pulse Rate 63 62 64 Respiratory 18 18 18 Rate Blood Pressure 135/76 182/82 160/59 O2 Sat by Pulse 96 Oximetry (%) 3 02/11/17 02/11/17 01:00 05:00 Temperature 98.3 F 97.7 F Pulse Rate 59 L 58 L Respiratory 18 18 Rate Blood Pressure 163/77 144/83 O2 Sat by Pulse Oximetry (%) GENERAL: The patient is awake, alert, and fully oriented, in no acute distress. HEAD: Normal with no signs of trauma. EYES: PERRL, extraocular movements intact, sclera anicteric, conjunctiva clear. No ptosis. ENT: Ears normal, nares patent, oropharynx clear without exudates, moist mucous membranes. NECK: Trachea midline, full range of motion, supple. LUNGS: Breath sounds equal, clear to auscultation bilaterally, no wheezes, no crackles, no accessory muscle use. HEART: Regular rate and rhythm, S1, S2 without murmur, rub or gallop. ABDOMEN: Soft, nontender, nondistended, normoactive bowel sounds, no guarding, no rebound, no hepatosplenomegaly, no masses. EXTREMITIES: 2+ pulses, warm, well-perfused, no edema. NEUROLOGICAL: Cranial nerves II through XII grossly intact. Gait not observed. RLE 4/5, LLE 5/5, RUE 4/5, LUE 5/5, aphasia noted, tongue midline, mild right facial droop noted. follows commands when given in Greenlandic PSYCH: Normal mood, normal affect. SKIN: Warm, dry, normal turgor, no rashes or lesions noted Laboratory Results - last 24 hr 3 02/10/17 02/10/17 02/11/17 02/11/17 02/11/17 16:45 20:32 05:29 05:41 05:41 WBC 5.7 RBC 3.78 Hgb 11.0 Hct 32.6 MCV 86.2 MCHC 33.8 RDW 14.1 Plt Count 168 MPV 8.2 Neutrophils % Y Lymphocytes % Y Sodium 142 Potassium 4.0 Chloride 107 Carbon Dioxide 28 Anion Gap 7 L BUN 15 D Creatinine 0.8 Creat Clearance w eGFR > 60 POC Glucometer 188 159 141 Random Glucose 149 H Calcium 8.7 Magnesium 1.6 L Total Bilirubin 0.7 AST 13 L ALT 12 Alkaline Phosphatase 70 D Total Protein 6.3 L Albumin 3.4 Active Medications 3 Generic Name Dose Route Start Last Admin Trade Name Freq PRN Reason Stop Dose Admin Atorvastatin Calcium 10 mg 02/08/17 22:00 02/10/17 21:36 Lipitor - PO 10 mg HS MINISTERIO Administration Clopidogrel Bisulfate 75 mg 02/09/17 10:30 02/11/17 09:49 Plavix - PO 75 mg DAILY MINISTERIO Administration Heparin Sodium (Porcine) 5,000 unit 02/09/17 22:00 02/11/17 09:49 Heparin - SQ 5,000 unit BID MINISTERIO Administration Sodium Chloride 1,000 mls @ 42 mls/hr 02/08/17 11:45 02/10/17 16:13 Normal Saline - IV Not Given ASDIR MINISTERIO Insulin Aspart 1 vial 02/08/17 16:30 02/11/17 06:03 Novolog Vial Sliding Scale - SQ Not Given ACHS [facility] Protocol Latanoprost 1 drop 02/09/17 15:47 02/10/17 21:38 Xalatan 0.005% Eye Drops - OU 1 drop HS MINISTERIO Administration Metformin HCl 1,000 mg 02/08/17 16:30 02/11/17 06:02 Glucophage - PO 1,000 mg BIDAC MINISTERIO Administration Metoprolol Succinate 25 mg 02/10/17 10:00 02/11/17 09:49 Toprol Xl - PO 25 mg BID MINISTERIO Administration Pantoprazole Sodium 20 mg 02/09/17 10:00 02/11/17 09:49 Protonix - PO 20 mg DAILY MINISTERIO Administration Quetiapine Fumarate 12.5 mg 02/09/17 22:00 02/10/17 21:35 Seroquel - PO 12.5 mg HS MINISTERIO Administration ASSESSMENT/PLAN: 66 year-old female with a PMH of HTN, HLD, CVA x 2 (2011, 2012), TIA (2014), and IDDM, admitted for worsening speech. Dysarthria r/o CVA v. TIA - 02/08 CT head: no acute process - recent cardiac workup unremarkable; 11/28/16 echo showed LV normal, RV normal, trace to mild MR and TR; 11/28/16 Holter monitor showed sinus rhythm, no afib/aflutter, no dysrhythmias - continue statin, Plavix (NOTE: confirmed with Ana María's patient is on Plavix; last took aggrenox in August 2016) - seroquel changed to QHS to assess mental status better. - seen and evaluated by neuro, recommended cont plavix, MRI brain ordered, still pending Diabetes - FSBS stable - continue metformin, Novolog sliding scale coverage HTN - home toprol increased to BID yesterday, BP slightly high last night, but ok this am. F/E/N Fluids: PO intake adequate Electrolytes: magnesium repleted Nutrition: diabetic, low sodium DVT prophylaxis: subq heparin Physical therapy evaluation completed. Recommend SNF, but pt and declined. Discussed risks/benefits; made aware they are responsible for any adverse outcomes (including fall with potential morbidity) associated with going home instead of SNF Dispo: Full Code. If MRI ok, potential DC this PM. Visit type - Emergency Visit Emergency Visit: Yes ED Registration Date: 02/08/17 Care time: The patient presented to the Emergency Department on the above date and was hospitalized for further evaluation of their emergent condition. - New Patient This patient is new to me today: Yes Date on this admission: 02/11/17 - Critical Care Critical Care patient: No - Discharge Referral Referred to [facility] Med P.C.: No
[2017-02-11 13:35] LABS: PLATELET ESTIMATE ADEQUATE (NORMAL)
[2017-02-11] MEDS ORDERED: MAGNESIUM SULF 50% (8.12 MEQ/2 ML-1 GM VIAL) ONE (15:13)
[2017-02-11] MEDS: SODIUM CHLORIDE 1,000 ML IV SCH (15:24)
--- NOTE | 2017-02-11 21:03 | PN ---
Progress Note (short form) - Note Progress Note: NEUROLOGY FOLLOW-UP; Dr. Sandhu's coverage consultation and Ms. Leung's input are greatly appreciated. This 66 yo RH woman with h/o HTN and DM is s/p 3 CVA's in the past most recently in 06/29 resulting in severe, global aphasia. Admitted last Saturday after wakening with worsening of speech and comprehension associated with BG= [address] of head and MRI of brain (reviewed): Both show moderate, diffuse atrophy with increased ventricular size (L>R), L MCA-territory CVA of varying ages including distal teritory encephalomalcia and diffuse white matter microvascular changes (L>R). But no acute CVA, NIVIA: No bruits NEURO: Follows some simple commands. Gibberish output in Mohawk and french. Right homonomous hemianopsia. Mild right drift with increased reflexes on the right Mild right spastic hemiparesis with mild circumduction but stable gait. IMP: At base line with moderte Left cerebral dysfunction and severe expressive> receptive aphasia. Worsened due to toxic-metabolic exacerbation (hyperglycemia) now improved. SUGGEST: Continue current Rx including Plavix and BP, Glucose control. Out patient neurology f/u and speech Rx. Thank you very much, Randolph De La Paz MD
[2017-02-11] MEDS: ATORVASTATIN CA 10 MG TABLET (FP) PO SCH (21:49)
[2017-02-11] MEDS: QUEtiapine FUMARATE 25 MG TABLET (FP) PO SCH (21:49)
[2017-02-11] MEDS: LATANOPROST 0.005% OPHTH SOLN 2.5ML BOTTLE OU SCH (21:50)
[2017-02-12] MEDS: INSULIN DETEMIR 100 UNITS/ML MDV SQ SCH ×2 (00:48→09:26)
[2017-02-12] MEDS ORDERED: PT OWN MED DRAWER 7, Y5N ONE (05:51)
[2017-02-12] MEDS: INSULIN SLIDING SCALE (NOVOLOG) 1 VIAL SQ SCH ×2 (06:15→12:37)
[2017-02-12 08:00] LABS: COCKROFT - GAULT 79.2455; CREATININE 0.7 mg/dL (0.55-1.02); MAGNESIUM 1.8 mg/dL (1.8-2.4)
--- NOTE | 2017-02-12 08:39 | DS ---
Physical Examination Vital Signs: Vital Signs Temperature 99.2 F 02/12/17 06:00 Pulse Rate 58 L 02/12/17 06:00 Respiratory Rate 20 02/12/17 06:00 Blood Pressure 149/68 02/12/17 06:00 O2 Sat by Pulse Oximetry (%) 95 02/11/17 21:00 Findings/Remarks: GENERAL: The patient is awake, alert, and fully oriented, in no acute distress. HEAD: Normal with no signs of trauma. LUNGS: Breath sounds equal, clear to auscultation bilaterally HEART: Regular rate and rhythm, S1, S2 without murmur, rub or gallop. ABDOMEN: Soft, nontender, nondistended, normoactive bowel sounds NEUROLOGICAL: Cranial nerves II through XII grossly intact. Gait not observed. RLE 4/5, LLE 5/5, RUE 4/5, LUE 5/5, aphasia noted, tongue midline, mild right facial droop noted. follows commands when given in Green[place]ic Labs: CBC, BMP 02/11/17 05:41 02/12/17 05:35 Discharge Summary Reason For Visit: DYSATHRIA,HYPERGLYCEMIA Current Active Problems Dysarthria (Acute) Hyperglycemia (Acute) Hospital Course: 66 year-old female with a PMH of HTN, HLD, CVA x 2 (2011, 2012), TIA (2014), and IDDM, admitted for worsening speech. Dysarthria r/o CVA v. TIA - 02/08 CT head: no acute process - recent cardiac workup unremarkable; 11/28/16 echo showed LV normal, RV normal, trace to mild MR and TR; 11/28/16 Holter monitor showed sinus rhythm, no afib/aflutter, no dysrhythmias - continue statin, Plavix (NOTE: confirmed with Ana María's patient is on Plavix; last took aggrenox in August 2016) - seroquel changed to QHS to assess mental status better. - seen and evaluated by neuro, recommended cont plavix - Brain MRI with no acute infarct. 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 Eat a low carb diet. Avoid sweets and simple starches such as white rice. Referrals: Daily Suárez MD [Staff Physician] - 2 Weeks Randolph De La Paz MD [Staff Physician] - 1 Week Disposition: VNS/HOME HEALTH CARE - Home Medications Comprehensive Discharge Medication List: Ambulatory Orders Bimatoprost [Lumigan] 1 drop OU DAILY 02/08/17 Clopidogrel Bisulfate [Plavix -] 75 mg PO DAILY 02/08/17 Famotidine 20 mg PO DAILY 02/08/17 Simvastatin 20 mg PO DAILY 02/08/17 Insulin (Levemir) [Levemir Vial] 12 units SQ BID #1 ml 02/12/17 Metformin HCl [Glucophage -] 1,000 mg PO BIDAC tablet 02/12/17 Metoprolol Succinate [Toprol XL -] 25 mg PO BID #60 tab 02/12/17 Quetiapine Fumarate [Seroquel -] 12.5 mg PO HS tablet 02/12/17 This patient is new to me today: Yes Date on this admission: 02/11/17 Emergency Visit: No Critical Care patient: No - Discharge Referral Referred to [facility] No
[2017-02-12] MEDS: metFORMIN HCL 500 MG TABLET (FP) PO SCH (09:26)
[2017-02-12] MEDS: HEPARIN NA (PORCINE) 5,000 UNITS/ML 1ML VIAL SQ SCH (09:26)
[2017-02-12] MEDS: CLOPIDOGREL BISULFATE 75 MG TABLET (FP) PO SCH (09:27)
[2017-02-12] MEDS: PANTOPRAZOLE 20 MG TABLET (FP) PO SCH (09:27)
[2017-02-12] MEDS: METOPROLOL SUCCINATE 25 MG TAB.SR.24H (FP) PO SCH (09:27)
[2017-02-12 09:35] VITALS: BP 167/71; PULSE 57; TEMP 98.9
== END 2017-02-12 15:30 | disposition home health service (06) | DRG 638 ==
LOC: JER 11:04 → JERBED 12:42 → J4S 15:28
PROVIDERS: ADMIT Internal Medicine; ATTEND Registered Nurse
DX: E11.65 Type 2 diabetes mellitus with hyperglycemia (principal); I69.351 Hemiplegia and hemiparesis following cerebral infarction affecting right dominant side; R47.01 Aphasia; Z79.4 Long term (current) use of insulin; I10 Essential (primary) hypertension; R47.1 Dysarthria and anarthria; E78.5 Hyperlipidemia, unspecified
CPT/HCPCS: 36415; 70450-TC; 70551-TC; 71010-TC; 80048; 80053; 80061; 81003; 82465; 82550; 82803; 83036; 83718; 83721; 83735; 84478; 84484; 85025; 85027; 85610; 85730; 86850; 86900; 86901; 93005; 93010; 97116-GP; 97161-GP; 99284-25; J1644

== ENCOUNTER 2017-08-31 21:30 | Emergency (ER) | payer OTHER ==
[2017-08-31 21:46] VITALS: TEMP 98.5; BMI 23.6
[2017-08-31 21:54] LABS: BASOPHIL 0.9 % (0-2.0); EOSINOPHIL 2.1 % (0-4.5); MCH 29.2 pg (25.7-33.7); MCHC 33.3 g/dl (32.0-36.0); MEAN CELL VOLUME 87.7 fl (80-96); MEAN PLT VOLUME 7.9 fl (7.5-11.1); NEUTROPHILS 38.5 % (42.8-82.8); PLATELET COUNT 203 K/MM3 (134-434); RDW 13.7 % (11.6-15.6); WHITE BLOOD COUNT 5.7 K/mm3 (4.0-10.0)
--- NOTE | 2017-08-31 21:58 | PDOC ---
Attending Attestation - Resident Resident Name: DebbiePorter - HPI HPI: 09/02/17 09:37 pt presents to the ED complaining of hypergylcemia on home blood sugars. Patient denies complaints to me. - Physicial Exam PE: 09/02/17 09:40 Agree with resident exam. Patient is well appearing and in no acute distress. - Medical Decision Making 09/02/17 09:40 Pt presents to the ED complaining of hypergylcemia. Questionable compliance with levamir. Glucose controlled after IV fluid and insulin in the Ed. Will [id number] home. PAtient will follow up with her PMD within two days.
--- NOTE | 2017-08-31 22:11 | PDOC ---
History of Present Illness - General Chief Complaint: Blood Sugar Problem Stated Complaint: HIGH BLOOD SUGAR Time Seen by Provider: 08/31/17 21:37 - History of Present Illness Initial Comments: 08/31/17 22:09 The patient is a 67 yo f w/ PMH DM, HTN, HLD, CVA was BIBEMS c/o high blood sugars. The patient states that her sugars have been consistently in the 300- 400 range over the past few months, but also has instances when it was in the 500's and was 600 when the patient decided to come to the emergency department. Patient states that she is compliant with her home medications, but describes taking her home long acting insulin inconsistently. Patient is also complaining of burning on urination. Patient was recently seen at [facility] for similar complaints, where she was found to have a urine culture positive for strep. She was prescribed Levaquin which the patient states she took as prescribed without resolution of symptoms. Patient and her deny and change in mental status or any other symptoms. Patient denies shortness of breath, chest pain, fevers, chills, abdominal pain, cough or sick contacts. Past History - Past Medical History Allergies/Adverse Reactions: Allergies Allergy/AdvReac Type Severity Reaction Status Date / Time No Known Allergies Allergy Verified 08/31/17 21:34 Home Medications: Ambulatory Orders Bimatoprost [Lumigan] 1 drop OU DAILY 02/08/17 Clopidogrel Bisulfate [Plavix -] 75 mg PO DAILY 02/08/17 Famotidine 20 mg PO DAILY 02/08/17 Simvastatin 20 mg PO DAILY 02/08/17 Insulin (Levemir) [Levemir Vial] 12 units SQ BID #1 ml 02/12/17 Metformin HCl [Glucophage -] 1,000 mg PO BIDAC tablet 02/12/17 Metoprolol Succinate [Toprol XL -] 25 mg PO BID #60 tab 02/12/17 Quetiapine Fumarate [Seroquel -] 12.5 mg PO HS tablet 02/12/17 CVA: Yes (2007, 2012, 2014, RIGHT SIDED RESIDUAL WEAKNESS) COPD: No Diabetes: Yes (TYPE 2) GI Disorders: Yes (REFLUX) Disorders: No HTN: Yes Hypercholesterolemia: Yes Liver Disease: No Thyroid Disease: No - Surgical History Abdominal Surgery: Yes (HERNIA REPAIR X 2) Appendectomy: No Cardiac Surgery: No Cholecystectomy: Yes Lung Surgery: No Neurologic Surgery: No Orthopedic Surgery: No - Immunization History Immunization Up to Date: Yes - Suicide/Smoking/Psychosocial Hx Smoking Status: Yes Smoking History: Current some day smoker Have you smoked in the past 12 months: No Number of Cigarettes Smoked Daily: 1 If you are a former smoker, when did you quit?: states she smokes a couple per year Information on smoking cessation initiated: No 'Breaking Loose' booklet given: 02/15/15 Hx Alcohol Use: No Drug/Substance Use Hx: No Substance Use Type: None Hx Substance Use Treatment: No Review of Systems - Review of Systems Constitutional: No: Chills, Fever, Malaise HEENTM: No: Blurred Vision, Double Vision Respiratory: No: Cough, Shortness of Breath, SOB with Exertion Cardiac (ROS): No: Chest Pain, Edema, Lightheadedness, Palpitations, Syncope ABD/GI: No: Symptoms Reported, Abdominal Distended, Nausea, Vomiting : Yes: Burning, Dysuria Musculoskeletal: No: Back Pain, Joint Pain Integumentary: No: Bruising, Dryness Neurological: No: Headache, Numbness, Tingling *Physical Exam - Vital Signs Last Vital Signs Temp Pulse Resp BP Pulse Ox 98.5 F 59 L 22 187/86 100 08/31/17 21:38 08/31/17 21:38 08/31/17 21:38 08/31/17 21:38 08/31/17 21:38 - Physical Exam General Appearance: Yes: Appropriately Dressed. No: Apparent Distress HEENT: positive: Normal Voice Neck: positive: Trachea midline. negative: Tender Respiratory/Chest: positive: Lungs Clear, Normal Breath Sounds. negative: Chest Tender, Respiratory Distress, Accessory Muscle Use Cardiovascular: positive: Regular Rhythm, Regular Rate, S1, S2. negative: Edema , JVD, Murmur, Gallop/S3, Gallop/S4 Gastrointestinal/Abdominal: positive: Normal Bowel Sounds, Flat, Soft. negative : Tender Musculoskeletal: positive: Normal Inspection Extremity: positive: Normal Inspection Integumentary: positive: Normal Color, Dry, Warm Neurologic: positive: Fully Oriented, Alert, Normal Mood/Affect, Normal Response ED Treatment Course - LABORATORY CBC & Chemistry Diagram: 08/31/17 21:37 08/31/17 21:38 - ADDITIONAL ORDERS Additional order review: 08/31/17 21:37 RBC 3.88 MCV 87.7 MCHC 33.3 RDW 13.7 MPV 7.9 Neutrophils % 38.5 L Lymphocytes % 46.9 H Monocytes % 11.6 H Eosinophils % 2.1 Basophils % 0.9 Medical Decision Making - Medical Decision Making 08/31/17 22:56 Patient is a 67 yo f w/ PMH DM who comes into the ED c/o high blood sugars and dysuria which did not respond to outpatient abx. It is unclear whether or not the patient is complaint with her home DM medications. Her difficulty with sugar control is likely secondary to the lack of her compliance as well as an active UTI which has not responded to antibiotics. Other serious conditions such as DKA should also be ruled out, however. -CBC, CMP -blood acetone levels -UA -UCX -EKG -S/p 1L NS bolus by EMS. 08/31/17 23:02 -corrected sodium 140 -blood glucose 460 -anion gap closed -Cr 1.1 -BUN 22 -awaiting UA results -will give another liter NS bolus -will give 6u regular insulin IV 09/01/17 00:59 -repeat FS 151 -will feed the patient and give her her home levemir dose of 12u -patient is stable for DC with close follow up -return parameters discussed. *DC/Admit/Observation/Transfer Diagnosis at time of Disposition: Hyperglycemia - Discharge Dispostion Disposition: HOME Condition at time of disposition: Improved Admit: No - Referrals Referrals: Daily Suárez MD [Staff Physician] - - Patient Instructions Printed Discharge Instructions: DI for Hyperglycemia -- Adult Additional Instructions: You should follow up with your primary care doctor within 1-2 days of going home. Please take your medications as prescribed starting tomorrow. If you begin to feel chest pain, shortness of breath or if you notice very high or low sugars or begin to feel confused or if any of your symptoms get worse, please call your doctor or return to the emergency department. - Post Discharge Activity
[2017-08-31 22:18] LABS: ALBUMIN 3.4 g/dl (3.4-5.0); ALK PHOS 90 U/L (45-117); ANION GAP 9 (8-16); BILIRUBIN,TOTAL 0.8 mg/dL (0.2-1.0); CALCIUM 8.5 mg/dL (8.5-10.1); CO2 26 mmol/L (21-32); CREATININE 1.1 mg/dL (0.55-1.02); SGPT/ALT 13 U/L (12-78); TOT PROT 6.7 g/dl (6.4-8.2)
[2017-08-31 22:19] LABS: GLUCOSE,RANDOM 460 mg/dL (74-106); SGOT/AST 4 U/L (15-37)
[2017-08-31 22:32] VITALS: BP 146/65; PULSE 60
[2017-08-31 23:10] LABS: ACETONE SERUM NEGATIVE (NEGATIVE)
[2017-08-31] MEDS ORDERED: SODIUM CHLORIDE 1,000 ML IV STA (23:14)
[2017-08-31 23:25] LABS: URINE APPEARANCE CLEAR; URINE BILIRUBIN NEGATIVE (NEGATIVE); URINE BLOOD NEGATIVE (NEGATIVE); URINE COLOR STRAW; URINE GLUCOSE (UA) 3+ (NEGATIVE); URINE KETONE NEGATIVE (NEGATIVE); URINE NITRITE NEGATIVE (NEGATIVE); URINE PROTEIN NEGATIVE (NEGATIVE); URINE UROBILINOGEN NEGATIVE mg/dL (0.2-1.0)
[2017-09-01] MEDS ORDERED: INSULIN REGULAR HUMAN 100 UNITS/ML *VIAL IVPUSH ONE (00:06)
[2017-09-01] MEDS ORDERED: INSULIN REGULAR HUMAN 100 UNITS/ML *VIAL ONE (00:06)
[2017-09-01] MEDS ORDERED: INSULIN DETEMIR 100 UNITS/ML MDV SQ ONE (00:59)
[2017-09-01 12:22] LABS: URINE LEUK ESTERASE Negative (NEGATIVE)
--- NOTE | 2017-09-02 09:53 | EKG ---
Test Reason : Blood Pressure : / mmHG Vent. Rate : 059 BPM Atrial Rate : 059 BPM P-R Int : 134 ms QRS Dur : 128 ms QT Int : 428 ms P-R-T Axes : 029 -27 -10 degrees QTc Int : 423 ms SINUS BRADYCARDIA RIGHT BUNDLE BRANCH BLOCK ABNORMAL ECG WHEN COMPARED WITH ECG OF 21-AUG-2017 13:22, RIGHT BUNDLE BRANCH BLOCK HAS REPLACED RSR' PATTERN IN V1 Confirmed by GANESH ALATORRE, RICHIE ([id number]) on 09/02/2017 9:53:18 AM Referred By: Confirmed By:RICHIE ANDERSEN MD
== END 2017-09-01 01:20 | disposition home or self-care (01) ==
LOC: JER 21:30
PROC: 3E0337Z Introduction of Electrolytic and Water Balance Substance into Peripheral Vein, Percutaneous Approach (ICD-10-PCS; principal; 2017-08-31)
PROC: 3E033VG Introduction of Insulin into Peripheral Vein, Percutaneous Approach (ICD-10-PCS; 2017-08-31)
PROC: 3E013VG Introduction of Insulin into Subcutaneous Tissue, Percutaneous Approach (ICD-10-PCS; 2017-08-31)
DX: E11.65 Type 2 diabetes mellitus with hyperglycemia (principal); Z79.4 Long term (current) use of insulin; Z79.84 Long term (current) use of oral hypoglycemic drugs; I10 Essential (primary) hypertension; E78.00 Pure hypercholesterolemia, unspecified; K21.9 Gastro-esophageal reflux disease without esophagitis; I69.851 Hemiplegia and hemiparesis following other cerebrovascular disease affecting right dominant side; F17.210 Nicotine dependence, cigarettes, uncomplicated
CPT/HCPCS: 36415; 80053; 81003; 82009; 85025; 87086; 93005; 93010; 96361; 96372; 96374; 99284-25

== ENCOUNTER 2017-09-02 07:19 | Emergency (ER) | payer OTHER ==
--- NOTE | 2017-09-02 07:22 | PDOC ---
Attending Attestation - HPI HPI: 09/02/17 08:17 The patient is a 67 year old female, with a significant past medical history of HTN, HLD, Diabetes CVA (3x), residual speech deficits, who was BIBA for blood sugar of 449. - Physicial Exam PE: 09/02/17 08:14 GENERAL: Awake, alert, and fully oriented, in no acute distress HEAD: No signs of trauma EYES: PERRLA, EOMI, sclera anicteric, conjunctiva clear ENT: Auricles normal inspection, hearing grossly normal, nares patent, oropharynx clear without exudates. Moist mucosa NECK: Normal ROM, supple, no lymphadenopathy, JVD, or masses LUNGS: Breath sounds equal, clear to auscultation bilaterally. No wheezes, and no crackles HEART: Bradycardic. No murmurs, rubs or gallops ABDOMEN: Soft, nontender, normoactive bowel sounds. No guarding, no rebound. No masses EXTREMITIES: Normal range of motion, no edema. No clubbing or cyanosis. No cords, erythema, or tenderness NEUROLOGICAL: No new focal neural deficits. Cranial nerves II through XII grossly intact. SKIN: Warm, Dry, normal turgor, no rashes or lesions noted. <Elise Yan - Last Filed: 09/02/17 08:16> - Resident Resident Name: Burt Garces - ED Attending Attestation I have performed the following: I have examined & evaluated the patient, The case was reviewed & discussed with the resident, I agree w/resident's findings & plan, Exceptions are as noted - Medical Decision Making 09/02/17 07:22 I, Dr. Helen Elam, DO, attest that this document has been prepared under my direction and personally reviewed by me in its entirety. I further attest, that it accurately reflects all work, treatment, procedures and medical decision -making performed by me. 09/02/17 07:46 a/p: 67yo female with hyperglycemia -no other complaints. no cp/sob. no lance. no pareshtesias or blurred vision. no abd pain. no n/v/d. no dysuria. no f/c at baseline ms will check labs, acetone, ivf hydration has appt with PMD tomorrow at 10am using lantus 10 bid will monitor and reassess 11/20/17 09:07 urine pending. labs reviewed. hyperglycemia, but not 495. Glucose on chem is in 200s. Pt denies all somatic complaints. IVF hydration given. will repeat finger stick 09/02/17 09:24 pt pulled out own iv urine with glucose, but no uti glucose improved with ivf hydration has appt tomorrow at 10am with pmd used lantus this AM has lantus and metformin at home no acetone no gap pt stable for d/c to home to follow up with PMD tomorrow. <Helen Elam - Last Filed: 09/02/17 09:25> Heart Score/ECG Review - ECG Impressions Comment:: 09/02/17 07:37 Sinus bradycardia Left axis deviation Nonspecific intraventricular block Nonspecific T wave abnormality Abnormal ECG Vent rate 57 bpm <Elise Yan - Last Filed: 09/02/17 08:16> - ECG Intrepretation Comment:: 09/02/17 08:22 sinus oziel at 57, interventricular conduction delay, L axis deviation, abnl ekg 09/02/17 08:23 ekg unchanged from prior <Helen Elam - Last Filed: 09/02/17 09:25>
[2017-09-02] MEDS ORDERED: SODIUM CHLORIDE 0.9% 1000 ML INFUS.BAG IV ONE (07:23)
--- NOTE | 2017-09-02 07:29 | PDOC ---
History of Present Illness - General Stated Complaint: BLOOD SUGAR PROBLEM Time Seen by Provider: 09/02/17 07:21 - History of Present Illness Initial Comments: 67 yo f w/ PMH DM, HTN, HLD, CVA (x3 most recently 3 years prior, residual dysarthria undergoing PT) was BIBEMS complaining of high blood sugars. She denies any active complaints besides a blood sugar of 449 measured at home. She did not eat breakfast this morning and states that she took 10 units of her Lantus this AM. The patient states that her sugars have been consistently in the 300-400 range over the past few months, but also has instances when it was in the 500's. She was seen in our ED two days prior for a glucose of 400s. She is not compliant with her Lantus because she has a 12 BID presecription and only takes 10 units daily She was treated with Levaquin for a UTI 12 days prior and currently does not have any urinary complaints. Her UA was clear during her visit two two days prior. She has an appointment with her PCP (Dr. Che) tomorrow morning at 10 AM. Denies chest pain, nausea, vomiting, visual symptoms, cough, urinary symptoms, or any new neurological deficits (per she is at her functional baseline). 09/02/17 07:27 Past History - Past Medical History Allergies/Adverse Reactions: Allergies Allergy/AdvReac Type Severity Reaction Status Date / Time No Known Allergies Allergy Verified 09/02/17 07:41 Home Medications: Ambulatory Orders Bimatoprost [Lumigan] 1 drop OU DAILY 02/08/17 Clopidogrel Bisulfate [Plavix -] 75 mg PO DAILY 02/08/17 Famotidine 20 mg PO DAILY 02/08/17 Insulin (Levemir) [Levemir Vial] 12 units SQ BID #1 ml 02/12/17 Metformin HCl [Glucophage -] 1,000 mg PO BIDAC tablet 02/12/17 Metoprolol Succinate [Toprol XL -] 25 mg PO BID #60 tab 02/12/17 Quetiapine Fumarate [Seroquel -] 25 mg PO HS 09/02/17 CVA: Yes (2007, 2012, 2014, RIGHT SIDED RESIDUAL WEAKNESS) COPD: No Diabetes: Yes (TYPE 2) GI Disorders: Yes (REFLUX) Disorders: No HTN: Yes Hypercholesterolemia: Yes Liver Disease: No Thyroid Disease: No - Surgical History Abdominal Surgery: Yes (HERNIA REPAIR X 2) Appendectomy: No Cardiac Surgery: No Cholecystectomy: Yes Lung Surgery: No Neurologic Surgery: No Orthopedic Surgery: No - Immunization History Immunization Up to Date: Yes - Suicide/Smoking/Psychosocial Hx Smoking Status: Yes Smoking History: Current some day smoker Have you smoked in the past 12 months: No Number of Cigarettes Smoked Daily: 1 If you are a former smoker, when did you quit?: states she smokes a couple per year 'Breaking Loose' booklet given: 02/15/15 Hx Alcohol Use: No Drug/Substance Use Hx: No Substance Use Type: None Hx Substance Use Treatment: No Review of Systems - Review of Systems Constitutional: No: Chills, Diaphoresis, Fever HEENTM: No: Blurred Vision Respiratory: No: Cough, Orthopnea, Shortness of Breath, Wheezing, Productive cough Cardiac (ROS): No: Chest Pain, Irregular Heart Rate ABD/GI: No: Diarrhea, Nausea, Vomiting : No: Hematuria, Incontinence Integumentary: No: Bruising Neurological: No: Headache, Numbness, Paresthesia Psychiatric: No: Anxiety *Physical Exam - Physical Exam General Appearance: Yes: Nourished, Appropriately Dressed. No: Apparent Distress HEENT: positive: EOMI, RADHAMES, Normal ENT Inspection, Normal Voice, Other (But has speech difficulties at baseline) Neck: positive: Trachea midline, Normal Thyroid. negative: Tender Respiratory/Chest: positive: Lungs Clear, Normal Breath Sounds. negative: Chest Tender, Respiratory Distress Cardiovascular: positive: Regular Rhythm, Bradycardia Gastrointestinal/Abdominal: positive: Normal Bowel Sounds, Flat, Soft. negative : Tender Musculoskeletal: positive: Normal Inspection. negative: CVA Tenderness Extremity: positive: Normal Capillary Refill, Normal Inspection, Normal Range of Motion Integumentary: positive: Normal Color, Dry, Warm Neurologic: positive: schedule manager II-XII NML intact, Fully Oriented, Alert, Normal Mood/ Affect, Motor Strength 5/5. negative: Normal Response (dysarthric at baseline but chair springer at [facility] states that she is at baseline.) ED Treatment Course - LABORATORY CBC & Chemistry Diagram: 09/02/17 07:43 09/02/17 07:43 Medical Decision Making - Medical Decision Making 67 year old female with questionable insulin compliance as she is supposed to have 12.5 BID but only taking 10 daily most days. She has had consistent trouble with her sugar and has an appointment with her PCP tomorrow to have her regimen evaluated. Her high sugars could possibly be attributed to her recent UTI but her last UA here was clear and she currently is asymptomatic. She has no other symptoms concerning of other infection. She is not in active symptomatic DKA but this will be evaluated further. Will get EKG, Chest XR, CBC , BMP, UA, serum acetone. Will give one liter NS. 09/02/17 08:01 Glucose improved with 500 mL NS (pulled out her own IV hald way through the 1 liter administration) from 292 to 270. Will DC home as she has an appointment with here PMD in the AM. 09/02/17 09:24 *DC/Admit/Observation/Transfer Diagnosis at time of Disposition: Hyperglycemia due to type 2 diabetes mellitus Qualifiers: Diabetes mellitus halfway insulin use: with manager terminal use Qualified Code(s): E11.65 - Type 2 diabetes mellitus with hyperglycemia - Discharge Dispostion Disposition: HOME Condition at time of disposition: Improved Admit: No - Referrals Referrals: Daily Suárez MD [Primary Care Provider] - - Patient Instructions Printed Discharge Instructions: DI for Hyperglycemia -- Adult Additional Instructions: You were seen for high blood sugar. We measured it here at 292. Please take your insulin twice a day as prescribed along with your metformin. Please follow up with your PMD tomorrow morning. Pelase return to the ED if you have sugars that go higher after you use your insulin. - Post Discharge Activity
[2017-09-02 07:41] VITALS: TEMP 97.5; BMI 25.4
[2017-09-02 07:58] LABS: BASOPHIL 0.8 % (0-2.0); EOSINOPHIL 2.5 % (0-4.5); MCH 29.6 pg (25.7-33.7); MEAN CELL VOLUME 86.9 fl (80-96); PLATELET COUNT 211 K/MM3 (134-434); RDW 13.2 % (11.6-15.6)
[2017-09-02 08:17] LABS: ALBUMIN 3.7 g/dl (3.4-5.0); ALK PHOS 105 U/L (45-117); ANION GAP 8 (8-16); BILIRUBIN,TOTAL 0.6 mg/dL (0.2-1.0); CALCIUM 9.4 mg/dL (8.5-10.1); CO2 26 mmol/L (21-32); CREATININE 0.9 mg/dL (0.55-1.02); GLUCOSE,RANDOM 292 mg/dL (74-106); MAGNESIUM 1.8 mg/dL (1.8-2.4); SGOT/AST 8 U/L (15-37); SGPT/ALT 16 U/L (12-78); TOT PROT 7.2 g/dl (6.4-8.2)
[2017-09-02 09:08] LABS: URINE APPEARANCE CLEAR; URINE BILIRUBIN NEGATIVE (NEGATIVE); URINE BLOOD NEGATIVE (NEGATIVE); URINE COLOR STRAW; URINE GLUCOSE (UA) 3+ (NEGATIVE); URINE KETONE NEGATIVE (NEGATIVE); URINE NITRITE NEGATIVE (NEGATIVE); URINE PROTEIN NEGATIVE (NEGATIVE); URINE UROBILINOGEN NEGATIVE mg/dL (0.2-1.0)
[2017-09-02 09:18] LABS: ACETONE SERUM NEGATIVE (NEGATIVE)
[2017-09-02 09:32] VITALS: BP 184/85; PULSE 55
[2017-09-02 13:40] LABS: URINE LEUK ESTERASE Negative (NEGATIVE)
--- NOTE | 2017-09-02 13:56 | EKG ---
Test Reason : Blood Pressure : / mmHG Vent. Rate : 057 BPM Atrial Rate : 057 BPM P-R Int : 128 ms QRS Dur : 126 ms QT Int : 464 ms P-R-T Axes : 029 -32 -07 degrees QTc Int : 451 ms SINUS BRADYCARDIA LEFT AXIS DEVIATION RIGHT BUNDLE BRANCH BLOCK NONSPECIFIC T WAVE ABNORMALITY ABNORMAL ECG WHEN COMPARED WITH ECG OF 31-AUG-2017 21:54, NO SIGNIFICANT CHANGE WAS FOUND Confirmed by JEAN PIERRE GANDARA MD ([id number]) on 09/02/2017 1:56:32 PM Referred By: Confirmed By:JEAN PIERRE GANDARA MD
== END 2017-09-02 09:35 | disposition home or self-care (01) ==
LOC: JER 07:19
DX: E11.65 Type 2 diabetes mellitus with hyperglycemia (principal); Z79.4 Long term (current) use of insulin; Z79.84 Long term (current) use of oral hypoglycemic drugs; I10 Essential (primary) hypertension; E78.00 Pure hypercholesterolemia, unspecified; K21.9 Gastro-esophageal reflux disease without esophagitis; F17.210 Nicotine dependence, cigarettes, uncomplicated
CPT/HCPCS: 36415; 71010-TC; 80053; 81003; 82009; 83605; 83735; 85025; 93005; 93010; 99282-25

== ENCOUNTER 2017-11-10 15:23 | Inpatient (IN) | payer OTHER ==
[2017-11-10 15:58] VITALS: BMI 31.1
--- NOTE | 2017-11-10 17:05 | PDOC ---
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 The patient states she woke up at her baseline this morning when she had a sudden onset of confusion. She states she was unable to locate any of her belongings and could not remember where she placed any of her items. Neighbor called the ambulance and states the patient was short of breath but patient denies shortness of breath and patient is not in respiratory distress upon arrival to the ED. As per friend, the patients daughter recently and her is admitted in the hospital. Friend states the patient typically has episodes of confusion and is currently under a lot of stress at home. Denies fever or chills. Denies nausea, vomiting, or diarrhea. Denies chest pain or shortness of breath. Denies headache or neck pain. Denies change in strength or sensation. Denies any other symptoms. This HPI is limited secondary to patient being a bad historian. PCP: Dr. Suárez <Wendy Key - Last Filed: 11/10/17 21:36> <Anneliese Nelson - Last Filed: 11/10/17 22:40> - General Chief Complaint: Shortness of Breath Stated Complaint: SOB Time Seen by Provider: 11/10/17 16:26 Past History <Wendy Key - Last Filed: 11/10/17 21:36> - Past Medical History CVA: Yes (2007, 2012, 2014, RIGHT SIDED RESIDUAL WEAKNESS) COPD: No Diabetes: Yes (TYPE 2) GI Disorders: Yes (REFLUX) Disorders: No HTN: Yes Hypercholesterolemia: Yes Liver Disease: No Thyroid Disease: No - Surgical History Abdominal Surgery: Yes (HERNIA REPAIR X 2) Appendectomy: No Cardiac Surgery: No Cholecystectomy: Yes Lung Surgery: No Neurologic Surgery: No Orthopedic Surgery: No - Immunization History Immunization Up to Date: Yes - Suicide/Smoking/Psychosocial Hx Smoking Status: Yes Smoking History: Current some day smoker Have you smoked in the past 12 months: No Number of Cigarettes Smoked Daily: 1 If you are a former smoker, when did you quit?: states she smokes a couple per year Information on smoking cessation initiated: No 'Breaking Loose' booklet given: 02/15/15 Hx Alcohol Use: No Drug/Substance Use Hx: No Substance Use Type: None Hx Substance Use Treatment: No <Anneliese Nelson - Last Filed: 11/10/17 22:40> - Past Medical History Allergies/Adverse Reactions: Allergies Allergy/AdvReac Type Severity Reaction Status Date / Time No Known Allergies Allergy Verified 11/10/17 20:14 Home Medications: Ambulatory Orders Bimatoprost [Lumigan] 1 drop OU DAILY 02/08/17 Clopidogrel Bisulfate [Plavix -] 75 mg PO DAILY 02/08/17 Famotidine 20 mg PO DAILY 02/08/17 Insulin (Levemir) [Levemir Vial] 12 units SQ BID #1 ml 02/12/17 Metformin HCl [Glucophage -] 1,000 mg PO BIDAC tablet 02/12/17 Metoprolol Succinate [Toprol XL -] 25 mg PO BID #60 tab 02/12/17 Quetiapine Fumarate [Seroquel -] 25 mg PO HS 09/02/17 Review of Systems - Review of Systems Able to Perform ROS?: Yes Comments:: 11/10/17 18:06 CONSTITUTIONAL: Absent: fever, chills, diaphoresis, generalized weakness, malaise, loss of appetite HEENT: Absent: rhinorrhea, nasal congestion, throat pain, throat swelling, difficulty swallowing, mouth swelling, ear pain, eye pain, visual Changes CARDIOVASCULAR: Absent: chest pain, syncope, palpitations, irregular heart rate, lightheadedness , peripheral edema RESPIRATORY: Absent: cough, shortness of breath, dyspnea with exertion, orthopnea, wheezing, stridor, hemoptysis GASTROINTESTINAL: Absent: abdominal pain, abdominal distension, nausea, vomiting, diarrhea, constipation, melena, hematochezia GENITOURINARY: Absent: dysuria, frequency, urgency, hesitancy, hematuria, flank pain, genital pain MUSCULOSKELETAL: Absent: myalgia, arthralgia, joint swelling SKIN: Absent: rash, itching, pallor HEMATOLOGIC/IMMUNOLOGIC: Absent: easy bleeding, easy bruising, lymphadenopathy, frequent infections ENDOCRINE: Absent: unexplained weight gain, unexplained weight loss, heat intolerance, cold intolerance NEUROLOGIC: Absent: headache, focal weakness or paresthesias, dizziness, unsteady gait, seizure, mental status changes, bladder or bowel incontinence PSYCHIATRIC: + confusion Absent: anxiety, depression, suicidal or homicidal ideation, hallucinations. All Other Systems: Reviewed and Negative <Wendy Key - Last Filed: 11/10/17 21:36> *Physical Exam - Vital Signs Last Vital Signs Temp Pulse Resp BP Pulse Ox 98.7 F 62 18 173/80 98 11/10/17 15:55 11/10/17 15:55 11/10/17 15:55 11/10/17 15:55 11/10/17 15:55 - Physical Exam Comments: 11/10/17 18:06 GENERAL: Well developed, well nourished. Awake and alert. No acute distress. HEENT: + chronic visual neglect on the right side from a prior stroke. Normocephalic, atraumatic. No conjunctival pallor. Sclera are non-icteric. Moist mucous membranes. Oropharynx is clear. NECK: Supple. Full ROM. No JVD. Carotid pulses 2+ and symmetric, without bruits. No thyromegaly. NCo lymphadenopathy. CARDIOVASCULAR: Regular rate and rhythm. No murmurs, rubs, or gallops. Distal pulses are 2+ and symmetric. PULMONARY: No evidence of respiratory distress. Lungs clear to auscultation bilaterally. No wheezing, rales or rhonchi. ABDOMINAL: Soft. Non-tender. Non-distended. No rebound or guarding. No organomegaly. Normoactive bowel sounds. MUSCULOSKELETAL Normal range of motion at all joints. No bony deformities or tenderness. No CVA tenderness. EXTREMITIES: No cyanosis. No clubbing. No edema. No calf tenderness. SKIN: Warm and dry. Normal capillary refill. No rashes. No jaundice. NEUROLOGICAL: + Alert. Chronic speech deficits resulting from a prior stroke, aphasia and word searching. PSYCHIATRIC: Cooperative. Good eye contact. Appropriate mood and affect. <Wendy Key - Last Filed: 11/10/17 21:36> - Vital Signs Last Vital Signs Temp Pulse Resp BP Pulse Ox 98.7 F 62 18 173/80 98 11/10/17 15:55 11/10/17 15:55 11/10/17 15:55 11/10/17 15:55 11/10/17 15:55 <Anneliese Nelson - Last Filed: 11/10/17 22:40> NIH Stroke Scale - Last Known Well Date/Time & Onset Date Last Known Well: 11/09/17 Time Last Known Well: 23:00 - Initial Evaluation Level of consciousness: Alert Ask patient the month and their age: Both incorrect Ask patient to open & close eyes; make fist and let go: Obeys both correctly Best gaze (horizontal eye movement): Normal Visual field testing: Partial hemianopia Facial paresis (Show teeth/raise eyebrows/close eyes tight): Normal symmetrical movement Motor Function: Left Arm: Normal Motor Function: Right Arm: Normal (extends arm 90 (or 45) degrees for 10 seconds without drift Motor Function: Left Leg: Normal (extends leg 30 degrees for 5 seconds without drift) Motor Function: Right Leg: Normal (extends leg 30 degrees for 5 seconds without drift) Limb Ataxia: No ataxia Sensory(Use pinprick test arms,legs,trunk,face/side to side): Normal Best language (Describe picture, name items, read sentences): Mild to moderate aphasia Dysarthria (read several words): Normal articulation Extinction and Inattention: No abnormality - Total Score NIH Stroke Scale Score: 4 <Anneliese Nelson - Last Filed: 11/10/17 22:40> tPA Exclusion checklist 3-4.5h - Time Elapsed Date last known well: 11/09/17 Time last known well: 23:00 Elaspsed time: Day(s) and 23 Hour(s) and 39 Minutes - Thrombolytic Therapy Candidate Is patient eligible for thrombolytic therapy: No - Exclusion Criteria 3-4.5 hr SBP greater than 185 or DBP greater than 110mmHg despite tx: No Recent IC/spinal surgery,head trauma or stroke<3mos.: No Hx IC hemorrhage, IC neoplasm, AV malformation or aneurysm: No Active internal bleeding: No Blding diathesis(low plt ct, inc PTT,INR>1.7 or use of NOAC): No Symptoms suggest subarachnoid hemorrhage: No CT demonstrates multilobar infarct(>1/3 cerebral hemiphere): No Arterial puncture at noncompressible site in previous 7 days: No Blood glucose concentration less than 50mg/dL (2.7mmol/L): No - Relative Exclusion Criteria 3-4.5 hr Life expectancy <1 yr or severe co-morbid illness: No : No Patient/family refused: No Rapid improvement: Yes Stroke severity too mild: Yes Recent acute IA (w/in previous 3 months): No Seizure at onset with postictal residual neuro impairments: No Major surgery or serious trauma w/in previous 14 days: No Recent GI or hemorrhage (w/in previous 21 days): No - Add'l Relative Exclusion 3-4.5 hr Age > 80: No Hx of both diabetes AND prior ischemic stroke: Yes Taking an oral anticoagulant regardless of INR: No NIHSS >25: No - Ineligibility reason(s) Reasons No tPA given: Outside of window - delayed arrival (outside the window and no new neurological changes since last stroke]) <Anneliese Nelson - Last Filed: 11/10/17 22:40> Heart Score/ECG Review #1 11/10/17 18:06 Vent rate 58 bpm MD interval 126 ms QRS duration 128 ms Sinus bradycardia nonspecific intraventricular block nonspecific T wave abnormality No change since prior ECG on 09/02/17 Reported by: Dr. Nelson <Wendy Key - Last Filed: 11/10/17 21:36> Critical Care Time/MDM Note - Medical Decision Making Note: 11/10/17 18:08 Documentation prepared by Wendy Key, acting as medical record clerk for Anneliese Nelson MD 11/10/17 21:26 EXAM: CT head without contrast FINDINGS: 1. There is a large area of encephalomalacia in the left frontal temporal and parietal lobes consistent with chronic infarct in the left middle cerebral artery distribution. There is a punctate focus of increased density in the area of encephalomalacia that most likely represents a focus of dystrophic calcification. There is no definite evidence of an acute intracranial process and no evidence of intracranial hemorrhage or mass effect. There is moderate to marked atherosclerotic vascular calcification of the internal carotid arteries and vertebral arteries bilaterally at the skull base. Comparison with previous imaging studies would be helpful. If there is a clinical suspicion of an acute intracranial process/acute cerebral ischemia and if there is no clinical contraindication, MRI brain would be helpful. Alternatively short -term followup CT imaging may be helpful. 2. Ventricular size appears to be concordant with the degree of atrophy. 3. The visualized portions of the orbits, paranasal and mastoid sinuses are unremarkable Reported by: Imaging interior design professional 11/10/17 21:[address] Sandhu, neurology interior design professional, at 21:35. <Wendy Key - Last Filed: 11/10/17 21:36> - Medical Decision Making Note: 11/10/17 21:43 67-year-old female states that she could not find what she was looking for. There is some confusion about her initial complaints because friend called the ambulance said she called the ambulance because of her complaints of shortness of breath She has had several strokes in the past and has residual aphasia and a right sided field cut and has difficulties with her speech. She lives with her who is currently admitted as [facility] for acute enterocolitis. The family friend who called the ambulance states that the patient's daughter several weeks ago at the age of 37 <Anneliese Nelson - Last Filed: 11/10/17 22:40> Discharge Disposition <Wendy Key - Last Filed: 11/10/17 21:36> - Discharge Dispostion Last Admission D/C Date: 02/12/17 Admit: Yes <Anneliese Nelson - Last Filed: 11/10/17 22:40> - Diagnosis Dysarthria, Hyperglycemia - Referrals Referrals: Daily Suárez MD [Primary Care Provider] - - Patient Instructions - Post Discharge Activity
[2017-11-10 17:20] LABS: BASO % 0.4 % (0-2.0); EOS % 1.4 % (0-4.5); HEMATOCRIT 38.1 % (32.4-45.2); HEMOGLOBIN 12.7 GM/dL (10.7-15.3); LYMPH % 45.6 % (8-40); MCH 28.6 pg (25.7-33.7); MCHC 33.3 g/dl (32.0-36.0); MEAN CELL VOLUME 85.9 fl (80-96); MEAN PLT VOLUME 8.1 fl (7.5-11.1); MONO % 9.4 % (3.8-10.2); NEUT % 43.2 % (42.8-82.8); PLATELET COUNT 224 K/MM3 (134-434); RBC 4.44 M/mm3 (3.60-5.2); WHITE BLOOD COUNT 9.5 K/mm3 (4.0-10.0)
[2017-11-10 17:33] LABS: INR 0.96 (0.82-1.09); PROTHROMBIN TIME (PATIENT) 10.8 SEC (9.98-11.88)
[2017-11-10 17:52] LABS: ALBUMIN 4.1 g/dl (3.4-5.0); ANION GAP 8 (8-16); BILIRUBIN,TOTAL 0.8 mg/dL (0.2-1.0); BLOOD UREA NITROGEN 19 mg/dL (7-18); CALCIUM 9.6 mg/dL (8.5-10.1); CHLORIDE 98 mmol/L (98-107); CO2 31 mmol/L (21-32); GLUCOSE,RANDOM 205 mg/dL (74-106); POTASSIUM 4.4 mmol/L (3.5-5.1); SGOT/AST 9 U/L (15-37); SGPT/ALT 18 U/L (12-78); SODIUM 137 mmol/L (136-145); TOT PROT 8.3 g/dl (6.4-8.2)
[2017-11-10 17:53] LABS: ALK PHOS 128 U/L (45-117)
[2017-11-10 21:28] LABS: URINE APPEARANCE CLEAR; URINE BILIRUBIN NEGATIVE (NEGATIVE); URINE COLOR YELLOW; URINE GLUCOSE (UA) 3+ (NEGATIVE)
[2017-11-10 21:29] LABS: URINE BLOOD NEGATIVE (NEGATIVE); URINE KETONE NEGATIVE (NEGATIVE); URINE LEUK ESTERASE TRACE (NEGATIVE); URINE NITRITE NEGATIVE (NEGATIVE); URINE PROTEIN NEGATIVE (NEGATIVE); URINE UROBILINOGEN NORMAL mg/dL (0.2-1.0)
[2017-11-10 21:30] LABS: EPI CELLS RARE /HPF (FEW); URINE BACTERIA RARE /hpf (NONE SEEN); URINE MUCUS RARE
[2017-11-10] MEDS ORDERED: ASPIRIN 81 MG CHEWABLE TABLETS PO ONE (21:35)
[2017-11-10] MEDS ORDERED: ASPIRIN 81 MG CHEWABLE TABLETS ONE (21:43)
--- NOTE | 2017-11-10 22:31 | PN ---
Teaching Attending Note Name of Resident: Neftali Jordan ATTENDING PHYSICIAN STATEMENT I saw and evaluated the patient. I reviewed the resident's note and discussed the case with the resident. I agree with the resident's findings and plan as documented. SUBJECTIVE: 67 F with hx. of CVA ( X5 RUE weakness and Dysarthria), HTN, HLD, who presents with confusion. Pt. woke up and could not remember where she placed her items. Neighbor who called the ambulance had trouble understanding patient and thought she was short of breath, but pt. denies any shortness of breath. Pt. has been under duress since her daughter passed several weeks ago and her is in the hospital. She denies any headache, dizziness or lightheadedness. No chest pain or pressure. No shortness of breath. Pt. is a poor historian, OBJECTIVE: Physical: VS: Vital Signs Period Temp Pulse Resp BP Sys/Glass Pulse Ox Last 24 Hr 98.7 F 60-62 18-18 166-173/78-80 98-98 GEN: NAD, resting in bed, AA0X1 (Person) HEENT: NCAT, PERRL, throat without erythema or exudates CARD: RRR S1, S2 RESP: CTAB ABD: BSx4, NTD to palpation EXT: - C/C/E NEURO: Pt. had trouble following commands and refused to do so. CBCD WBC 9.5 K/mm3 (4.0-10.0) D 11/10/17 17:12 RBC 4.44 M/mm3 (3.60-5.2) 11/10/17 17:12 Hgb 12.7 GM/dL (10.7-15.3) D 11/10/17 17:12 Hct 38.1 % (32.4-45.2) 11/10/17 17:12 MCV 85.9 fl (80-96) 11/10/17 17:12 MCHC 33.3 g/dl (32.0-36.0) 11/10/17 17:12 RDW 13.0 % (11.6-15.6) 11/10/17 17:12 Plt Count 224 K/MM3 (134-434) 11/10/17 17:12 MPV 8.1 fl (7.5-11.1) 01/28/18 17:12 CMP Sodium 137 mmol/L (136-145) 11/10/17 17:12 Potassium 4.4 mmol/L (3.5-5.1) 11/10/17 17:12 Chloride 98 mmol/L (98-107) 11/10/17 17:12 Carbon Dioxide 31 mmol/L (21-32) 11/10/17 17:12 Anion Gap 8 (8-16) 11/10/17 17:12 BUN 19 mg/dL (7-18) H 11/10/17 17:12 Creatinine 1.0 mg/dL (0.55-1.02) 11/10/17 17:12 Creat Clearance w eGFR 55.30 (>60) 11/10/17 17:12 Random Glucose 205 mg/dL (74-106) H 11/10/17 17:12 Calcium 9.6 mg/dL (8.5-10.1) 11/10/17 17:12 Total Bilirubin 0.8 mg/dL (0.2-1.0) D 11/10/17 17:12 AST 9 U/L (15-37) L 11/10/17 17:12 ALT 18 U/L (12-78) 11/10/17 17:12 Alkaline Phosphatase 128 U/L (45-117) H 11/10/17 17:12 Total Protein 8.3 g/dl (6.4-8.2) H 11/10/17 17:12 Albumin 4.1 g/dl (3.4-5.0) 11/10/17 17:12 CARDIAC ENZYMES Creatine Kinase 107 IU/L (26-192) 11/10/17 17:12 Troponin I 0.02 ng/ml (0.00-0.05) 11/10/17 17:12 Home Medications Medication Instructions Recorded Bimatoprost [Lumigan] 1 drop OU DAILY 02/08/17 Clopidogrel Bisulfate [Plavix -] 75 mg PO DAILY 02/08/17 Famotidine 20 mg PO DAILY 02/08/17 Insulin (Levemir) [Levemir Vial] 12 units SQ BID #1 ml 02/12/17 Metformin HCl [Glucophage -] 1,000 mg PO BIDAC tablet 02/12/17 Metoprolol Succinate [Toprol XL -] 25 mg PO BID #60 tab 02/12/17 Quetiapine Fumarate [Seroquel -] 25 mg PO HS 09/02/17 11/10/17 18:06 Vent rate 58 bpm MA interval 126 ms QRS duration 128 ms Sinus bradycardia nonspecific intraventricular block nonspecific T wave abnormality No change since prior ECG on 09/02/17 11/10/17 21:26 EXAM: CT head without contrast FINDINGS: 1. There is a large area of encephalomalacia in the left frontal temporal and parietal lobes consistent with chronic infarct in the left middle cerebral artery distribution. There is a punctate focus of increased density in the area of encephalomalacia that most likely represents a focus of dystrophic calcification. There is no definite evidence of an acute intracranial process and no evidence of intracranial hemorrhage or mass effect. There is moderate to marked atherosclerotic vascular calcification of the internal carotid arteries and vertebral arteries bilaterally at the skull base. Comparison with previous imaging studies would be helpful. If there is a clinical suspicion of an acute intracranial process/acute cerebral ischemia and if there is no clinical contraindication, MRI brain would be helpful. Alternatively short -term followup CT imaging may be helpful. 2. Ventricular size appears to be concordant with the degree of atrophy. 3. The visualized portions of the orbits, paranasal and mastoid sinuses are unremarkable Reported by: Imaging showroom consultant. Ambulatory Orders Bimatoprost [Lumigan] 1 drop OU DAILY 02/08/17 Clopidogrel Bisulfate [Plavix -] 75 mg PO DAILY 02/08/17 Famotidine 20 mg PO DAILY 02/08/17 Insulin (Levemir) [Levemir Vial] 12 units SQ BID #1 ml 02/12/17 Metformin HCl [Glucophage -] 1,000 mg PO BIDAC tablet 02/12/17 Metoprolol Succinate [Toprol XL -] 25 mg PO BID #60 tab 02/12/17 Quetiapine Fumarate [Seroquel -] 25 mg PO HS 09/02/17 ASSESSMENT AND PLAN: 67 F with hx. of CVA ( X5 RUE weakness and Dysarthria), HTN, HLD, who presents with confusion, being admitted with CVA/TIA rule out 1.) CVA/TIA - MRI Brain wo con - Echo/Carotid - ASA/Plavix/Statin - Trend Trop/EKG - Lipid Panel/HgBA1C 2.) HTN - C/W Home meds 3.) DM - FS - RAISS - Speech and Swallow 4.) HLD - Start Statin 5.) Dvt Ppx - Scds Place in Obs- Tele
--- NOTE | 2017-11-10 23:03 | HP ---
CHIEF COMPLAINT:confusion PCP: Dr schumacher HISTORY OF PRESENT ILLNESS: patient is poor historian, confused, give irrelevant answers. History obtained from ED notes The patient is a 67 year old female with a significant past medical history DM, HTN, HLD, CVA (x5 most recently 3 years prior with residual dysarthria) who was brought in by EMS for confusion. As per previous notes, the patients daughter recently and her is admitted in the hospital. Denies fever or chills. Denies nausea, vomiting, or diarrhea. Denies chest pain or shortness of breath. PCP: Dr. Suárez ER course was notable for: (1)aspirin 81mg (2)Ct head: report mentioned below (3)ekg : normal sinus rhythm Recent Travel: PAST MEDICAL HISTORY: as above PAST SURGICAL HISTORY: unobtainable Social History: unobtainable Family History: unobtainable Allergies No Known Allergies Allergy (Verified 11/10/17 20:14) HOME MEDICATIONS: Home Medications Medication Instructions Recorded Bimatoprost [Lumigan] 1 drop OU DAILY 02/08/17 Clopidogrel Bisulfate [Plavix -] 75 mg PO DAILY 02/08/17 Famotidine 20 mg PO DAILY 02/08/17 Insulin (Levemir) [Levemir Vial] 12 units SQ BID #1 ml 02/12/17 Metformin HCl [Glucophage -] 1,000 mg PO BIDAC tablet 02/12/17 Metoprolol Succinate [Toprol XL -] 25 mg PO BID #60 tab 02/12/17 Quetiapine Fumarate [Seroquel -] 25 mg PO HS 09/02/17 REVIEW OF SYSTEMS: unobtainable PHYSICAL EXAMINATION Vital Signs - 24 hr 11/10/17 11/10/17 15:55 18:28 Temperature 98.7 F Pulse Rate 62 Pulse Rate [ 60 Apical] Respiratory 18 18 Rate Blood Pressure 173/80 Blood Pressure 166/78 [Left Arm] O2 Sat by Pulse 98 98 Oximetry (%) GENERAL: Awake, remember her last name, disoriented to time, place, person HEAD: Normal with no signs of trauma. EYES: Pupils equal, round and reactive to light, extraocular movements intact, EARS, NOSE, THROAT: Moist mucous membranes. NECK: Normal range of motion, without lymphadenopathy, LUNGS: Breath sounds equal, clear to auscultation bilaterally. No wheezes, and no crackles. No accessory muscle use. HEART: s1s2 normal, regular, no murmur ABDOMEN: Soft, nontender, not distended, normoactive bowel sounds, no guarding, no rebound, no masses. MUSCULOSKELETAL: walking normal UPPER EXTREMITIES: 2+ pulses, warm, LOWER EXTREMITIES: warm, well-perfused. No calf tenderness. No peripheral edema. NEUROLOGICAL: Cranial nerves II-XII grossly intact, confused, power b/l upper and lower limb 5/5, walks normal. gives irrelevant answers SKIN: Warm, dry, Laboratory Results - last 24 hr 11/10/17 11/10/17 11/10/17 17:12 17:12 17:12 WBC 9.5 D RBC 4.44 Hgb 12.7 D Hct 38.1 MCV 85.9 MCH 28.6 MCHC 33.3 RDW 13.0 Plt Count 224 MPV 8.1 Neutrophils % 43.2 Lymphocytes % 45.6 H Monocytes % 9.4 Eosinophils % 1.4 Basophils % 0.4 PT with INR INR Sodium 137 Potassium 4.4 Chloride 98 Carbon Dioxide 31 Anion Gap 8 BUN 19 H Creatinine 1.0 Creat Clearance w eGFR 55.30 Random Glucose 205 H Calcium 9.6 Total Bilirubin 0.8 D AST 9 L ALT 18 Alkaline Phosphatase 128 H Creatine Kinase 107 Troponin I 0.02 Total Protein 8.3 H Albumin 4.1 Urine Color Urine Appearance Urine pH Ur Specific [place] Urine Protein Urine Glucose (UA) Urine Ketones Urine Blood Urine Nitrite Urine Bilirubin Urine Urobilinogen Ur Leukocyte Esterase Urine WBC (Auto) Urine RBC (Auto) Ur Epithelial Cells Urine Bacteria Urine Mucus 11/10/17 11/10/17 17:12 20:50 WBC RBC Hgb Hct MCV MCH MCHC RDW Plt Count MPV Neutrophils % Lymphocytes % Monocytes % Eosinophils % Basophils % PT with INR 10.80 INR 0.96 Sodium Potassium Chloride Carbon Dioxide Anion Gap BUN Creatinine Creat Clearance w eGFR Random Glucose Calcium Total Bilirubin AST ALT Alkaline Phosphatase Creatine Kinase Troponin I Total Protein Albumin Urine Color Yellow Urine Appearance Clear Urine pH 5.0 Ur Specific [place] 1.015 Urine Protein Negative Urine Glucose (UA) 3+ H Urine Ketones Negative Urine Blood Negative Urine Nitrite Negative Urine Bilirubin Negative Urine Urobilinogen Normal Ur Leukocyte Esterase Trace Urine WBC (Auto) 2 Urine RBC (Auto) 1 Ur Epithelial Cells Rare Urine Bacteria Rare Urine Mucus Rare MRI from 02/2017: Brain MRI with no acute infarct. Large chronic left emoporoparietal cortical/subcortical infarct EK11/10/17 Vent rate 58 bpm, MD interval 126 ms , QRS duration 128 ms , Sinus bradycardia . nonspecific intraventricular block, nonspecific T wave abnormality No change since prior ECG on 09/02/17 CT 11/10/17 head without contrast FINDINGS: 1. There is a large area of encephalomalacia in the left frontal temporal and parietal lobes consistent with chronic infarct in the left middle cerebral artery distribution. There is a punctate focus of increased density in the area of encephalomalacia that most likely represents a focus of dystrophic calcification. There is no definite evidence of an acute intracranial process and no evidence of intracranial hemorrhage or mass effect. There is moderate to marked atherosclerotic vascular calcification of the internal carotid arteries and vertebral arteries bilaterally at the skull base. Comparison with previous imaging studies would be helpful. If there is a clinical suspicion of an acute intracranial process/acute cerebral ischemia and if there is no clinical contraindication, MRI brain would be helpful. Alternatively short -term followup CT imaging may be helpful. 2. Ventricular size appears to be concordant with the degree of atrophy. 3. The visualized portions of the orbits, paranasal and mastoid sinuses are unremarkable ASSESSMENT/PLAN: The patient is a 67 year old female with a significant past medical history DM, HTN, HLD, CVA (x5 most recently 3 years prior with residual dysarthria) who was brought in by EMS for confusion. confusion: could be from TIA/ cva/ residual from previous strokes/ Patient has h /o dysartheria. base line unknown. Need to contact family to know her base line. is in some other hospital , daughter couple of weeks ago. MRI brain w/o contrast ordered ECHO ordered. Carotid Doppler ordered. lipid profile Monitor vitals Neurology consult hold seraquil for proper neurological assessment HTN monitor vitals c/w home meds GERD c.w home meds HLD started on Lipitor DM bgm sliding scale diabetic diet gi prophylaxis famotidine DVT pro; scd b/l fluid: orally allowed electrolyte: repeat in am nutrition: diabetic diet dipo: obs tele Visit type - Emergency Visit Emergency Visit: Yes ED Registration Date: 11/10/17 Care time: The patient presented to the Emergency Department on the above date and was hospitalized for further evaluation of their emergent condition. - New Patient This patient is new to me today: Yes Date on this admission: 11/11/17 - Critical Care Critical Care patient: No
[2017-11-11] MEDS ORDERED: INSULIN REGULAR HUMAN 100 UNITS/ML *VIAL ONE (07:59)
[2017-11-11] MEDS: INSULIN SLIDING SCALE (NOVOLOG) 1 VIAL SQ SCH ×4 (08:02→22:27)
[2017-11-11 08:13] LABS: BASO % 0.5 % (0-2.0); EOS % 1.7 % (0-4.5); HEMATOCRIT 36.8 % (32.4-45.2); LYMPH % 38.7 % (8-40); MCH 27.8 pg (25.7-33.7); MCHC 32.5 g/dl (32.0-36.0); MEAN CELL VOLUME 85.5 fl (80-96); MEAN PLT VOLUME 8.2 fl (7.5-11.1); MONO % 10.5 % (3.8-10.2); NEUT % 48.6 % (42.8-82.8); PLATELET COUNT 205 K/MM3 (134-434); RBC 4.31 M/mm3 (3.60-5.2); RDW 13.2 % (11.6-15.6); WHITE BLOOD COUNT 7.6 K/mm3 (4.0-10.0)
[2017-11-11 08:29] LABS: ALBUMIN 3.5 g/dl (3.4-5.0); ANION GAP 7 (8-16); CALCIUM 8.7 mg/dL (8.5-10.1); CHLORIDE 101 mmol/L (98-107); CHOLESTEROL 145 mg/dL (50-200); CO2 30 mmol/L (21-32); GLUCOSE,RANDOM 245 mg/dL (74-106); MAGNESIUM 1.8 mg/dL (1.8-2.4); POTASSIUM 4.4 mmol/L (3.5-5.1); SODIUM 138 mmol/L (136-145)
[2017-11-11 08:39] LABS: ALK PHOS 106 U/L (45-117); BILIRUBIN,TOTAL 1.1 mg/dL (0.2-1.0); BLOOD UREA NITROGEN 22 mg/dL (7-18); CREATININE 0.9 mg/dL (0.55-1.02); HDL CHOLESTEROL 53 mg/dL (40-60); LDL CHOLESTEROL (ONLY SJRH) 74 mg/dL (5-100); PHOSPHOROUS 4.7 mg/dL (2.5-4.9); SGOT/AST 9 U/L (15-37); SGPT/ALT 14 U/L (12-78); TOT PROT 7.1 g/dl (6.4-8.2); TRIGLYCERIDES 154 mg/dL (35-160)
[2017-11-11] MEDS: RANITIDINE HCL 150 MG TABLET (FP) PO SCH (10:30)
[2017-11-11] MEDS: CLOPIDOGREL BISULFATE 75 MG TABLET (FP) PO SCH (10:30)
[2017-11-11] MEDS: METOPROLOL SUCCINATE 25 MG TAB.SR.24H (FP) PO SCH ×2 (10:30→22:24)
[2017-11-11] MEDS ORDERED: INSULIN (NOVOLOG) ASPART 100 UNITS/ML 10ML VIAL ONE (11:57)
--- NOTE | 2017-11-11 13:03 | EKG ---
Test Reason : Blood Pressure : / mmHG Vent. Rate : 055 BPM Atrial Rate : 108 BPM P-R Int : 128 ms QRS Dur : 130 ms QT Int : 444 ms P-R-T Axes : 035 -26 -02 degrees QTc Int : 424 ms SINUS BRADYCARDIA RIGHT BUNDLE BRANCH BLOCK ABNORMAL ECG WHEN COMPARED WITH ECG OF 10-NOV-2017 15:43, NO SIGNIFICANT CHANGE WAS FOUND Confirmed by JEAN PIERRE GANDARA MD ([id number] on 11/11/2017 1:03:33 PM Referred By: Confirmed By:JEAN PIERRE GANDARA MD
--- NOTE | 2017-11-11 13:15 | CON.NEURO ---
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 The patient states she woke up at her baseline this morning when she had a sudden onset of confusion. She states she was unable to locate any of her belongings and could not remember where she placed any of her items. Neighbor called the ambulance and states the patient was short of breath but patient denies shortness of breath and patient is not in respiratory distress upon arrival to the ED. As per friend, the patients daughter recently and her is admitted in the hospital. Friend states the patient typically has episodes of confusion and is currently under a lot of stress at home. Denies fever or chills. Denies nausea, vomiting, or diarrhea. Denies chest pain or shortness of breath. Denies headache or neck pain. Denies change in strength or sensation. Denies any other symptoms. baseline aphasia , difficult to get HX A1c uncontrolled / UA (-) + glucose no clear new SX attributable to stroke, was not considered TPA candidate [id number] MRI/BRAIN MRI W/O CONTRAST Confusion. Rule out TIA MRI of the brain without intravenous contrast A noncontrast MRI of the brain was performed with multiplanar T1 and T2-weighted images obtained. Compared to prior CT scan of the head dated 11/10/2017 Previously visualized large area of encephalomalacia in the left temporal, frontal, parietal and occipital lobe is again seen with cortical laminar necrosis and ex vacuo dilatation of the left lateral ventricle relative to the right. There is an old lacunar infarct in the left basal ganglia , posteriorly. Small focus of increased T2 signal intensity with restricted diffusion in the right periventricular white matter at the level of the chin radiata as well as another focus of the right posterior frontal/parietal junction consistent with acute/subacute lacunar infarcts. Focal old blood product in the medial left thalamus consistent with an old hemorrhagic lacunar infarct. No mass lesion or acute intracranial hemorrhage are identified. There is no shift of the midline structures. The craniocervical junction appears unremarkable. There are also chronic microvascular ischemic changes in the kobe. Flow voids are present within the central intracranial arteries circulation with markedly attenuated flow in the left M2 branches. Both orbits appear unremarkable. No suspicious bone marrow abnormal signal is identified. IMPRESSION: Large area vesiculation again seen involving the left temporal, frontal, occipital and parietal bone with laminar necrosis and exvacuodilatation of the left lateral ventricle. Left basal ganglia old lacunar infarct. Left thalamic old hemorrhagic lacunar infarct, medially. Acute/ subacute lacunar infarct in the right periventricular white matter at the level of the chin radiata and in the right centrum semiovale ovale, posteriorly at the junction of the right posterior frontal and parietal lobe. 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 Cardio/Vascular: Yes: HTN, Hyperlipdemia Endocrine: Yes: Diabetes Mellitus - Alcohol/Substance Use Hx Alcohol Use: No - Smoking History Smoking history: Current some day smoker Have you smoked in the past 12 months: No Aproximately how many cigarettes per day: 1 If you are a former smoker, when did you quit?: states she smokes a couple per year - Social History ADL: Independent History of Recent Travel: No Home Medications - Allergies Allergies/Adverse Reactions: Allergies Allergy/AdvReac Type Severity Reaction Status Date / Time No Known Allergies Allergy Verified 11/10/17 20:14 - Home Medications Home Medications: Ambulatory Orders Bimatoprost [Lumigan] 1 drop OU DAILY 02/08/17 Clopidogrel Bisulfate [Plavix -] 75 mg PO DAILY 02/08/17 Famotidine 20 mg PO DAILY 02/08/17 Insulin (Levemir) [Levemir Vial] 12 units SQ BID #1 ml 02/12/17 Metformin HCl [Glucophage -] 1,000 mg PO BIDAC tablet 02/12/17 Metoprolol Succinate [Toprol XL -] 25 mg PO BID #60 tab 02/12/17 Quetiapine Fumarate [Seroquel -] 25 mg PO HS 09/02/17 Physical Exam-Neuro Vital Signs: Vital Signs Temperature 98.4 F 11/11/17 10:25 Pulse Rate 68 11/11/17 10:25 Respiratory Rate 16 11/11/17 10:25 Blood Pressure 172/83 11/11/17 10:25 O2 Sat by Pulse Oximetry (%) 98 11/11/17 10:25 Constitutional: Yes: Well Nourished Neck: Yes: WNL Labs: CBC, BMP 11/11/17 07:42 11/11/17 07:42 INR, PTT INR 0.96 (0.82-1.09) 11/10/17 17:12 - Neuro Exam Level Of Consciousness: Yes: Alert (awake , alert, , non fluent speech, + naming difficulty, unable to reapeat, hold RUE triple flxed , mild right hemiparesis , R plantar up , giat not tested) Imaging - Results Cat Scan: Report Reviewed, Image Reviewed MRI: Report Reviewed, Image Reviewed Problem List - Problems (1) Cerebrovascular accident (CVA) due to embolism Code(s): I63.9 - CEREBRAL INFARCTION, UNSPECIFIED (2) Dysarthria Code(s): R47.1 - DYSARTHRIA AND ANARTHRIA (3) Hyperglycemia due to type 2 diabetes mellitus Code(s): E11.65 - TYPE 2 DIABETES MELLITUS WITH HYPERGLYCEMIA Qualifiers: Diabetes mellitus [facility] insulin use: with [facility] use Qualified Code( s): E11.65 - Type 2 diabetes mellitus with hyperglycemia; Z79.4 - half-way ( current) use of insulin; Z79.4 - terminologist (current) use of insulin; Z79.4 - half-way (current) use of insulin; Z79.4 - terminologist (current) use of insulin Assessment/Plan 67 year old female with a significant past medical history DM, HTN, HLD, 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 The patient states she woke up at her baseline this morning when she had a sudden onset of confusion. She states she was unable to locate any of her belongings and could not remember where she placed any of her items. Neighbor called the ambulance and states the patient was short of breath but patient denies shortness of breath and patient is not in respiratory distress upon arrival to the ED. As per friend, the patients daughter recently and her is admitted in the hospital. Friend states the patient typically has episodes of confusion and is currently under a lot of stress at home. Denies fever or chills. Denies nausea, vomiting, or diarrhea. Denies chest pain or shortness of breath. Denies headache or neck pain. Denies change in strength or sensation. Denies any other symptoms. baseline aphasia , mild right hemiparesis A1c uncontrolled / UA (-) + glucose [id number] MRI/BRAIN MRI W/O CONTRAST IMPRESSION: Large area vesiculation again seen involving the left temporal, frontal, occipital and parietal bone with laminar necrosis and exvacuodilatation of the left lateral ventricle. Left basal ganglia old lacunar infarct. Left thalamic old hemorrhagic lacunar infarct , medially. Acute/subacute lacunar infarct in the right periventricular white matter at the level of the chin radiata and in the right centrum semiovale ovale, posteriorly at the junction of the right posterior frontal and parietal lobe. AP : HX of LMCA stroke with residual aphasia/R hemiparesis comes in with confusion , poorly controlled sugars and BP with new stroke on MRI suggestive of embolic events check Doppler, ECHO, needs long tern holter/loop--given her prior cortical stroke and new event in different vascular territory consider AC in this patient --will d/w cardiology (please consult) plavix, statin for now, can add ASA till finalize AC issue needs BP and DM control ( Bp reduction 25% in the first 24 hours) Dr Ashley
--- NOTE | 2017-11-11 15:32 | PN ---
Teaching Attending Note Name of Resident: Sydnee Bangura ATTENDING PHYSICIAN STATEMENT I saw and evaluated the patient. I reviewed the resident's note and discussed the case with the resident. I agree with the resident's findings and plan as documented. SUBJECTIVE:no complaints. denies CP, SOB, fever, chills, N/V/C/D, OBJECTIVE: Last Vital Signs Temp Pulse Resp BP Pulse Ox 99.0 F 63 16 138/95 100 11/11/17 14:00 11/11/17 14:00 11/11/17 14:00 11/11/17 14:00 11/11/17 14:00 General NAD, A&O x1 (self only) HEENT EOMI, no nystagmus CV S1 s2 irregulr Lungs CTA B/L no wheezing/rales/rhonchi Neuro +word apraxia, slightly dysarthric speech, decreased sensation to R side of face. strength equal in all 4 extremities. no pronator drift, gait with leaning towards the R. can not follow 2 part commands ASSESSMENT AND PLAN: 67yo F with PMH CVA x5 with R sided weakness and dysarthria, HTN, DM and dyslipidemia presented to the ER with confusion 1. Acute R lacunar infarct- has slight dysarthria with word apraxia. will need to be transferred to stroke unit for continuous cardiac monitoring. neuro eval. 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 concern as pt has had multiple strokes, concern for embolic disease. no hx of afib. may need loop recorder for longer monitoring. add asa to plavix. on statin. will make high intensity at this time 2. DM- uncontrolled. concern likely not compliant with home medications. re- start levemir 12 units BID. iss. titrate to optimize control. hold oral medications. A1c pending 3. HTN- controlled. allow for permissive HTN. cont metoprolol 4. DVT ppx- start lovenox
--- NOTE | 2017-11-11 17:01 | CONSULT ---
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 Cardiovascular: Yes: HTN, Hyperlipdemia Endocrine: Yes: Diabetes Mellitus - Smoking History Smoking history: Current some day smoker Have you smoked in the past 12 months: No Aproximately how many cigarettes per day: 1 If you are a former smoker, when did you quit?: states she smokes a couple per year - Alcohol/Substance Use Hx Alcohol Use: No - Social History ADL: Independent History of Recent Travel: No History - Admission Reason For Visit: NON CARDIAC DYSSARTRIS, HYPERGLYCEMIA - Hearing Hearing: Normal Speech Evaluation - Communication Primary Language: DANISH Communication: Yes: Simple Responses, Dysarthria, Language Barrier Oral Expression Ability: Yes: Mild Impairment - Speech Production Dysarthria: Yes: Flaccid Apraxia: Yes Able to Make Needs Known: Yes: Mildly Impaired Intelligibility: Yes: Mildly Impaired - Speech Characteristics Voice Loudness: Normal Voice Pitch: Yes: Normal Voice Phonatory-based Quality: Yes: Normal Speech Pattern: Normal Nasal Resonance: Normal Articulation: Yes: Precise Rate of Speech: Intact - Language/Auditory Comprehension Follows: Yes: 1 Stage Simple Commands (In primary language) Observation: Able to respond to yes/no queries: No, Yes/No Confusion: No, Comprehends Conversational Speech: Yes (social speech), Benefits from Slow Speech: No, Benefits from Repetiton: No, Benefits from Increased Volume of Speech: No - Language/Verbal Expression Aphasia: Yes: Anomia, Impaired Repetition (unable to repeat), Paraphrasic Errors , Neologisms, Apraxia Able to Respond to Simple Queries: Yes: Mildly Impaired Able to Communicate Wants and Needs: Yes: Mildly Impaired Functional Communication Status: Yes: Mildly Impaired Aware of Errors: No Attempts to Correct Errors: No Use of Gestures: No Written Expression: Not examined Oral Expression: limited secondary to language barrier. Reading Comprehension: Not examined Calculations: Not examined Attention: Yes: Intact - Memory/Perception entry specialists Memory: Yes: Moderately Impaired Short Term Memory: Yes: Mildly Impaired - Swallow Evaluation/Bedside Assessment Current Nutritional Intake: Regular (diabetic), Thin Liquids Oral Secretions: Yes: WFL Tracheostomy Present: No Patient on Ventilator: No Dentition: Yes: Adequate Facial Symmetry at Rest: Facial Droop Right Facial Symmetry on Retraction: Facial Droop Right Facial Movement: Controlled Sensation: Reduced Right Facial Comment: WFL for speech and swallowing Jaw Position: Closed at Rest Against Resistance Opening: Normal Against Resistance Closing: Normal Pucker Lips: Droops Right Smile: Droops Right Lips, Comment: WFL for speech and swallowing Lingual Speed of Movement: Reduced Lingual Movement Strgth Against Opposition: Normal Lingual Movement Characteristics: Normal Lingual Comment: WFL for speech and swallowing Soft Palate Description: Normal Color Hard Palate Description: Normal Color Gag Reflex: Strong Bite Reflex: Present Velopharyngeal Movement: Normal Laryngeal Elevation: WFL Laryngeal Movement: Able to Palpate Needs Assistance: Yes Rate of Intake: WFL Bolus Size: WFL Sensation: Bite Reflex Labial Seal: WFL Chewing: WFL Oral Prep Time: WFL A-P Transit: WFL Pocketing: None Timing of Swallow: WFL Coughing/Throat Clear: No Change in Voice: No Other Findings/Remarks: 67 yo female seen at bedside for swallow eval to rule out dysphagia. Pt primary language is Lebanese (speak a little Tuvaluan). Cooperative, A&Ox2. Pt admitted to [facility] for confusion, pmhx includes DM HTN,HLD, CVAx5 and dysarthria. Pt presents with mild right sided dysarthria of face and UE's. Adequate airway protection and voicing. Pt given po trials of pureed, soft and regular chewable solids with assistance revealed, good acceptance, adequate mastication, bolus formation and transport. Pharyngeal swallows appear timely. No coughing or changes in respiration after the swallow. Thin liquid trials via cup were unremarkable for dysphagia at this time. Recommendations - Speech Evaluation, Impression/Plan Impression: Pt presents with mild dysarthria on right side face and UE's. Pt is able to tolerate purees, soft, regular solids and thin liquids without s/s of aspiration at this time. Shelter Goals: tolerate the least restrictive diet without s/s aspiration Short Term Goals: tolerate regular dibetic solids and thin liquids without s/s aspiration - Dysphagia Impressions/Plan Swallowing Skills: WF Dysphagia Impressions: Minimal Impairment (secondary to right sided dysarthria) *Silent aspiration: cannot be R/O at bedside Dysphagia Treatment Plan: Small Bites, Safe Rate, Elevate HOB during feed, Other (monitor pulmonary status and nutritional intake.) Dysphagia Evaluation Summary: Pt is able to tolerate purees, soft, regular diabetic solids and thin liquids without s/s aspiration at this time. Observe standard aspiration precautions. Meds can be given whole or crushed. Results given verbally to charge account clerk Alyssa and to pcp via chart. Recommendations: Neuro Consult (consider for dysarthria) - Recommendations Diet Consistency: Regular (diabetic solids) Medication Administration: Whole with water Liquids: Thin Liquids
[2017-11-11] MEDS ORDERED: PT OWN MED DRAWER 7, Y5N ONE ×2 (17:50→22:19)
--- NOTE | 2017-11-11 19:45 | PN ---
Physical Exam: SUBJECTIVE: Patient seen and examined in ED in the morning. Well appearing, but confused. Denies any SOB, CP, chest discomfort, or PEREYRA. OBJECTIVE: Vital Signs Period Temp Pulse Resp BP Sys/Glass Pulse Ox Last 24 Hr 98.4 F-99.2 F 58-68 16-23 118-190/57-95 97-100 GENERAL: aaox1, nad EYES: PERRLA, EOMI, sclera anicteric, conjunctiva clear, (-) nystagmus ENT: oropharynx clear without exudates, moist mucous membranes LUNGS: CTAB HEART: rrr, normal s1/s2, no m/r/g ABDOMEN: soft, ntnd EXTREMITIES: 2+ DP pulses, wwp, no edema NEUROLOGICAL: non-fluent speech, naming difficulty (could not name ohara, but knew what it is used for and imitated how to use), mild dysarthric speech, mild R hemiparesis, (-) pronator drift CBC, BMP 11/11/17 07:42 11/11/17 07:42 Hepatic Panel Total Bilirubin 1.1 mg/dL (0.2-1.0) H D 11/11/17 07:42 AST 9 U/L (15-37) L 11/11/17 07:42 ALT 14 U/L (12-78) 11/11/17 07:42 Alkaline Phosphatase 106 U/L (45-117) 11/11/17 07:42 Albumin 3.5 g/dl (3.4-5.0) 11/11/17 07:42 Laboratory Tests 11/11/17 07:42 Triglycerides 154 Cholesterol 145 Total LDL Cholesterol 74 HDL Cholesterol 53 Urine Test Results Urine Color Yellow 11/10/17 20:50 Urine Appearance Clear 11/10/17 20:50 Urine pH 5.0 (5.0-8.0) 11/10/17 20:50 Ur Specific [place] 1.015 (1.001-1.035) 11/10/17 20:50 Urine Protein Negative (NEGATIVE) 11/10/17 20:50 Urine Glucose (UA) 3+ (NEGATIVE) H 11/10/17 20:50 Urine Ketones Negative (NEGATIVE) 11/10/17 20:50 Urine Blood Negative (NEGATIVE) 11/10/17 20:50 Urine Nitrite Negative (NEGATIVE) 11/10/17 20:50 Urine Bilirubin Negative (NEGATIVE) 11/10/17 20:50 Ur Leukocyte Esterase Trace (NEGATIVE) 11/10/17 20:50 Ur Epithelial Cells Rare /HPF (FEW) 11/10/17 20:50 Urine Bacteria Rare /hpf (NONE SEEN) 11/10/17 20:50 Urine Mucus Rare 11/10/17 20:50 IMAGING: Noncontrast Brain MRI 11/11/17: COMPARISON: Compared to prior CT scan of the head dated 11/10/2017. Previously visualized large area of encephalomalacia in the left temporal, frontal, parietal and occipital lobe is again seen with cortical laminar necrosis and ex vacuo dilatation of the left lateral ventricle relative to the right. There is an old lacunar infarct in the left basal ganglia, posteriorly. Small focus of increased T2 signal intensity with restricted diffusion in the right periventricular white matter at the level of the chin radiata as well as another focus of the right posterior frontal/parietal junction consistent with acute/subacute lacunar infarcts. Focal old blood product in the medial left thalamus consistent with an old hemorrhagic lacunar infarct. No mass lesion or acute intracranial hemorrhage are identified. There is no shift of the midline structures. The craniocervical junction appears unremarkable. There are also chronic microvascular ischemic changes in the kobe. Flow voids are present within the central intracranial arteries circulation with markedly attenuated flow in the left M2 branches. Both orbits appear unremarkable. No suspicious bone marrow abnormal signal is identified. IMPRESSION: Large area vesiculation again seen involving the left temporal, frontal, occipital and parietal bone with laminar necrosis and exvacuodilatation of the left lateral ventricle. Left basal ganglia old lacunar infarct. Left thalamic old hemorrhagic lacunar infarct, medially. Acute/ subacute lacunar infarct in the right periventricular white matter at the level of the chin radiata and in the right centrum semiovale ovale, posteriorly at the junction of the right posterior frontal and parietal lobe. Active Medications Aspirin (Ecotrin -) 81 mg PO DAILY [facility] Clopidogrel Bisulfate (Plavix -) 75 mg PO DAILY [facility] Last Admin: 11/11/17 10:30 Dose: 75 mg Enoxaparin Sodium (Lovenox -) 40 mg SQ DAILY [facility] Insulin Aspart (Novolog Vial Sliding Scale -) 1 vial SQ ACHS [facility] PRN Reason: Protocol Last Admin: 11/11/17 17:28 Dose: 2 units Insulin Detemir (Levemir Vial) 12 units SQ BID@0700,2200 [facility] Latanoprost (Xalatan 0.005% Eye Drops -) 1 drop OU HS [facility] Metoprolol Succinate (Toprol Xl -) 25 mg PO BID [facility] Last Admin: 11/11/17 10:30 Dose: 25 mg Ranitidine HCl (Zantac -) 150 mg PO DAILY [facility] Last Admin: 11/11/17 10:30 Dose: 150 mg Rosuvastatin Calcium (Crestor -) 40 mg PO [facility] ASSESSMENT/PLAN: 67yo woman with PMH of DM, HTN, HLD, CVA (x5, last 3y ago residual dysarthria) who p/w acutely worsening confusion and found to have acute infarct on MRI. #Acute R lacunar infarct *Carotid dopplers 11/10/17 moderate atherosclerotic disease w/o hemodynamically significant stenosis; ECHO 11/11 - e/o diastolic dysfunction, no significant change from Nov 2016 -Neurology consulted -COMMISSION SPECIALIST eval -PT assessment -Started ASA, c/w Plavix -started Crestor 40mg PO HS #DM, poorly controlled (Alc 11.3%) -Levemir 12U BID -BGM/ISS ACHS #HTN - reduce 25% in first 24H -c/w metoprolol 25mg BID #PPX: -Lovenox 40 SQ qd -c/w home Zantac 150mg qd #FEN: PO hydration / lytes wnl / DM diet w/ thin liquids d/w Dr. Francisco Javier Bangura MD PGY1 - Internal Medicine Visit type - Emergency Visit Emergency Visit: No - New Patient This patient is new to me today: Yes Date on this admission: 11/11/17 - Critical Care Critical Care patient: No
[2017-11-11] MEDS ORDERED: ROSUVASTATIN CA 40 MG TABLET PO SCH (22:00)
[2017-11-11] MEDS ORDERED: ATORVASTATIN CA 20 MG TABLET (FP) PO SCH (22:00)
[2017-11-11] MEDS: LATANOPROST 0.005% OPHTH SOLN 2.5ML BOTTLE OU SCH (22:23)
[2017-11-11] MEDS: INSULIN DETEMIR 100 UNITS/ML MDV SQ SCH (22:27)
--- NOTE | 2017-11-12 05:40 | PN ---
Physical Exam: SUBJECTIVE: Patient seen and examined by me this AM - A&Ox1. Per nursing, pt disoriented, sitting at edge of bed for much of the night. No other major overnight events. No fever/chills, N/V, cough, CP, ab pain , vision changes, PEREYRA, diarrhea or dysuria. OBJECTIVE: Vital Signs Intake & Output 11/09/17 11/10/17 11/11/17 11/12/17 23:59 23:59 23:59 23:59 Intake Total 120 Balance 120 Weight 74.843 kg 74.843 kg Period Temp Pulse Resp BP Sys/Glass Pulse Ox Last 24 Hr 98.4 F-99.2 F 58-68 16-23 118-190/57-95 96-100 GENERAL: Middle aged woman, lying comfortably in bed, in NAD. Pt A&Ox1 HEAD: Normal with no signs of trauma. EYES: PERRL, extraocular movements intact, sclera anicteric, conjunctiva clear. No ptosis. ENT: Ears normal, nares patent, oropharynx clear without exudates, moist mucous membranes. NECK: Trachea midline, full range of motion, supple. LUNGS: Breath sounds equal, clear to auscultation bilaterally, no wheezes, no crackles, no accessory muscle use. HEART: Regular rate and rhythm, S1, S2 without murmur, rub or gallop. ABDOMEN: Soft, nontender, nondistended, normoactive bowel sounds, no guarding, no rebound, no hepatosplenomegaly, no masses. EXTREMITIES: 2+ pulses, warm, well-perfused, no edema. NEUROLOGICAL: Unable to perform full neuro exam due to pt mental status. Cranial nerves II through XII grossly intact. Speech fluid, but nonsensical. Likely receptive aphasia. PSYCH: Normal mood, normal affect. SKIN: Warm, dry, normal turgor, no rashes or lesions noted Laboratory Results - last 24 hr CBC, BMP 11/11/17 07:42 11/11/17 07:42 11/11/17 11/11/17 11/11/17 07:42 07:42 07:53 WBC 7.6 RBC 4.31 Hgb 12.0 Hct 36.8 MCV 85.5 MCH 27.8 MCHC 32.5 RDW 13.2 Plt Count 205 MPV 8.2 Neutrophils % 48.6 Lymphocytes % 38.7 Monocytes % 10.5 H Eosinophils % 1.7 Basophils % 0.5 Sodium 138 Potassium 4.4 Chloride 101 Carbon Dioxide 30 Anion Gap 7 L BUN 22 H Creatinine 0.9 Creat Clearance w eGFR > 60 POC Glucometer [phone] Random Glucose 245 H Hemoglobin A1c % Calcium 8.7 Phosphorus 4.7 Magnesium 1.8 Total Bilirubin 1.1 H D AST 9 L ALT 14 Alkaline Phosphatase 106 Troponin I < 0.02 Total Protein 7.1 Albumin 3.5 Triglycerides 154 Cholesterol 145 Total LDL Cholesterol 74 HDL Cholesterol 53 TSH 3.53 11/11/17 11/11/17 11/11/17 08:36 11:53 16:56 WBC RBC Hgb Hct MCV MCH MCHC RDW Plt Count MPV Neutrophils % Lymphocytes % Monocytes % Eosinophils % Basophils % Sodium Potassium Chloride Carbon Dioxide Anion Gap BUN Creatinine Creat Clearance w eGFR POC Glucometer [phone] Random Glucose Hemoglobin A1c % 11.3 H Calcium Phosphorus Magnesium Total Bilirubin AST ALT Alkaline Phosphatase Troponin I Total Protein Albumin Triglycerides Cholesterol Total LDL Cholesterol HDL Cholesterol TSH 11/11/17 22:23 WBC RBC Hgb Hct MCV MCH MCHC RDW Plt Count MPV Neutrophils % Lymphocytes % Monocytes % Eosinophils % Basophils % Sodium Potassium Chloride Carbon Dioxide Anion Gap BUN Creatinine Creat Clearance w eGFR POC Glucometer 314 Random Glucose Hemoglobin A1c % Calcium Phosphorus Magnesium Total Bilirubin AST ALT Alkaline Phosphatase Troponin I Total Protein Albumin Triglycerides Cholesterol Total LDL Cholesterol HDL Cholesterol TSH Active Medications Generic Name Dose Route Start Last Admin Trade Name Freq PRN Reason Stop Dose Admin Aspirin 81 mg 11/12/17 10:00 Ecotrin - PO DAILY [facility] Clopidogrel Bisulfate 75 mg 11/11/17 10:00 11/11/17 10:30 Plavix - PO 75 mg DAILY [facility] Administration Enoxaparin Sodium 40 mg 11/12/17 10:00 Lovenox - SQ DAILY [facility] Insulin Aspart 1 vial 11/11/17 07:00 11/11/17 22:27 Novolog Vial Sliding Scale - SQ 8 units ACHS [facility] Administration Protocol Insulin Detemir 12 units 11/11/17 22:00 11/11/17 22:27 Levemir Vial SQ 12 units BID@0700,2200 [facility] Administration Latanoprost 1 drop 11/11/17 22:00 11/11/17 22:23 Xalatan 0.005% Eye Drops - OU 1 drop HS [facility] Administration Metoprolol Succinate 25 mg 11/11/17 10:00 11/11/17 22:24 Toprol Xl - PO 25 mg BID [facility] Administration Ranitidine HCl 150 mg 11/11/17 10:00 11/11/17 10:30 Zantac - PO 150 mg DAILY [facility] Administration Rosuvastatin Calcium 40 mg 11/11/17 22:00 11/11/17 22:24 Crestor - PO 40 mg HS [facility] Administration No micro IMAGIN/28 - Non con CT Head - Impression. No evidence of acute intracranial hemorrhage, edema, midline shift, mass effect, or skull fracture. Old left cerebral infarct involving the left temporal lobe, parietal lobe with compensatory ex vacuo dilatation of the left lateral ventricle including temporal horn. Chronic ischemic changes in the left maira insular region, basal ganglia. Moderate coalescence supratentorial chronic white matter microangiopathic ischemic changes (left > right). No CT evidence of acute territorial ischemia. Noncontrast Brain MRI 11/11/17: COMPARISON: Compared to prior CT scan of the head dated 11/10/2017. Previously visualized large area of encephalomalacia in the left temporal, frontal, parietal and occipital lobe is again seen with cortical laminar necrosis and ex vacuo dilatation of the left lateral ventricle relative to the right. There is an old lacunar infarct in the left basal ganglia, posteriorly. Small focus of increased T2 signal intensity with restricted diffusion in the right periventricular white matter at the level of the chin radiata as well as another focus of the right posterior frontal/parietal junction consistent with acute/subacute lacunar infarcts. Focal old blood product in the medial left thalamus consistent with an old hemorrhagic lacunar infarct. No mass lesion or acute intracranial hemorrhage are identified. There is no shift of the midline structures. The craniocervical junction appears unremarkable. There are also chronic microvascular ischemic changes in the kobe. Flow voids are present within the central intracranial arteries circulation with markedly attenuated flow in the left M2 branches. Both orbits appear unremarkable. No suspicious bone marrow abnormal signal is identified. IMPRESSION: Large area vesiculation again seen involving the left temporal, frontal, occipital and parietal bone with laminar necrosis and exvacuodilatation of the left lateral ventricle. Left basal ganglia old lacunar infarct. Left thalamic old hemorrhagic lacunar infarct, medially. Acute/ subacute lacunar infarct in the right periventricular white matter at the level of the chin radiata and in the right centrum semiovale ovale, posteriorly at the junction of the right posterior frontal and parietal lobe. Carotid doppler 11/11 - No evidence of hemodynamically significant stenosis. 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 #Acute right lacunar infarct -Carotid dopplers-11/10 moderate atherosclerotic disease w/o hemodynamically significant stenosis; ECHO 11/11 - e/o diastolic dysfunction, no sig change from 11/30 -Neurology consulted, recs appreciated; ok with just plavix, however recommend hypercoaguable work-up -S+S seen; continued with regular diet -PT assessment - Pt unsteady able to walk w/ walker 35ft w/ assistance -ASA, c/w Plavix -Crestor 40mg PO HS - Cardiology consulted; recommend 24hour holter monitor as outpt, heme consult and if CVA determined to be definitively embolic, full AC recommended -Heme consult for hypercoag work-up - 24 hour holter as outpt - prior holter in 2011 #DM - poorly controlled (A1C 11.3%), likely due to poor compliance -Levemir 12U BID -BGM - ISS ACHS -cont to hold metformin #HTN - No longer requires permissive hypertension; outside of critical window -c/w metoprolol 25mg BID #PPX: Lovenox 40 SQ qd Zantac 150mg qd FEN PO hydration lytes wnl Diabetic diet Plan d/w attending Dr. Luda Roblero, PGY1 Visit type - Emergency Visit Emergency Visit: Yes ED Registration Date: 11/11/17 Care time: The patient presented to the Emergency Department on the above date and was hospitalized for further evaluation of their emergent condition. - New Patient This patient is new to me today: Yes Date on this admission: 11/12/17 - Critical Care Critical Care patient: No
[2017-11-12] MEDS: INSULIN SLIDING SCALE (NOVOLOG) 1 VIAL SQ SCH ×4 (06:15→22:50)
[2017-11-12] MEDS: INSULIN DETEMIR 100 UNITS/ML MDV SQ SCH ×2 (06:15→22:49)
[2017-11-12] MEDS ORDERED: INSULIN (NOVOLOG) ASPART 100 UNITS/ML 10ML VIAL ONE ×3 (06:33→22:44)
--- NOTE | 2017-11-12 08:49 | CON.CARD ---
Consult Consult Specialty:: Cardiology Referred by:: Dr. Mcintyre Reason for Consultation:: CVA - History of Present Illness Chief Complaint: Confusion History of Present Illness: 67F with DM presented to ER with confusion, found to have acute lacunar infarct (R) on MRI, multiple prior old CVAs. She reports 5 prior CVAs. Denies palps. Denies chest pain. Denies SOBN, edema, syncope. Carotid US showed moderate b/l dz, no sig stenosis. TTE basically normal. TELE: thus far, NSR. She had a FRANSISCO in [address] Lewis after her prior CVA that was normal. 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 Cardio/Vascular: Yes: HTN, Hyperlipdemia Endocrine: Yes: Diabetes Mellitus - Past Surgical History Past Surgical History: Yes: Hernia Repair - Alcohol/Substance Use Hx Alcohol Use: No - Smoking History Smoking history: Current some day smoker Have you smoked in the past 12 months: No Aproximately how many cigarettes per day: 1 If you are a former smoker, when did you quit?: states she smokes a couple per year - Social History ADL: Independent History of Recent Travel: No Home Medications - Allergies Allergies/Adverse Reactions: Allergies Allergy/AdvReac Type Severity Reaction Status Date / Time No Known Allergies Allergy Verified 11/10/17 20:14 - Home Medications Home Medications: Ambulatory Orders Bimatoprost [Lumigan] 1 drop OU DAILY 02/08/17 Clopidogrel Bisulfate [Plavix -] 75 mg PO DAILY 02/08/17 Famotidine 20 mg PO DAILY 02/08/17 Insulin (Levemir) [Levemir Vial] 12 units SQ BID #1 ml 02/12/17 Metformin HCl [Glucophage -] 1,000 mg PO BIDAC tablet 02/12/17 Metoprolol Succinate [Toprol XL -] 25 mg PO BID #60 tab 02/12/17 Quetiapine Fumarate [Seroquel -] 25 mg PO HS 09/02/17 Family Disease History - Family Disease History Family History: Unremarkable (non-contributory) Review of Systems Findings/Remarks: The patient is a 67 year old female with a significant past medical history DM, HTN, HLD, CVA (x5 most recently 3 years prior with residual dysarthria) who presents to the ED with an episode of confusion earlier today. The patient states she woke up at her baseline this morning when she had a sudden onset of confusion. She states she was unable to locate any of her belongings and could not remember where she placed any of her items. Neighbor called the ambulance and states the patient was short of breath but patient denies shortness of breath and patient is not in respiratory distress upon arrival to the ED. As per friend, the patients daughter recently and her is admitted in the hospital. Friend states the patient typically has episodes of confusion and is currently under a lot of stress at home. Denies fever or chills. Denies nausea, vomiting, or diarrhea. Denies chest pain or shortness of breath. Denies headache or neck pain. Denies change in strength or sensation. Denies any other symptoms. This HPI is limited secondary to patient being a bad historian. - Review of Systems Constitutional: reports: No Symptoms Neurological: reports: Change in LOC, Confusion - Risk Factors Known Risk Factors: Yes: Diabetes Mellitus, Hypertension, Prior DC /Emb Stroke Vital Signs: Vital Signs Temperature 98.8 F 11/12/17 06:00 Pulse Rate 60 11/12/17 06:00 Respiratory Rate 20 11/12/17 06:00 Blood Pressure 110/53 11/12/17 06:00 O2 Sat by Pulse Oximetry (%) 96 11/11/17 22:00 Constitutional: Yes: No Distress, Calm Eyes: Yes: EOM Intact Respiratory: Yes: CTA Bilaterally Gastrointestinal: Yes: Soft Cardiovascular: Yes: Regular Rate and Rhythm JVD: No Carotid Bruit: No PMI: Non-Displaced Heart Sounds: Yes: S1, S2 (No murmur) Edema: No Peripheral Pulses WNL: Yes Neurological: Yes: Alert, Oriented - Other Data Labs, Other Data: CBC, BMP 11/11/17 07:42 11/11/17 07:42 INR, PTT INR 0.96 (0.82-1.09) 11/10/17 17:12 Laboratory Tests 11/10/17 11/10/17 11/11/17 17:12 17:12 07:42 WBC 7.6 Hgb 12.0 Plt Count 205 PT with INR 10.80 Sodium Potassium Creatinine Magnesium AST ALT Troponin I 0.02 Total LDL Cholesterol 11/11/17 07:42 WBC Hgb Plt Count PT with INR Sodium 138 Potassium 4.4 Creatinine 0.9 Magnesium 1.8 AST 9 L ALT 14 Troponin I < 0.02 Total LDL Cholesterol 74 Sinus oziel at 58bpm, RBBB, NSST changes Echo: Report Reviewed Ejection Fraction %: LVEF > or = 40 % Imaging - Results Chest X-ray: Image Reviewed Cat Scan: Report Reviewed MRI: Report Reviewed EKG: Image Reviewed Problem List - Problems (1) Cerebrovascular accident (CVA) due to embolism Code(s): I63.9 - CEREBRAL INFARCTION, UNSPECIFIED Qualifiers: Laterality of affected vessel: unspecified (2) Diabetes Code(s): E11.9 - TYPE 2 DIABETES MELLITUS WITHOUT COMPLICATIONS Qualifiers: Diabetes mellitus type: type 2 Diabetes mellitus complication status: with circulatory complication Assessment/Plan IMP: 67 F with DM and multiple prior CVAs again presents with acute/subacute CVA. Work up, including prior FRANSISCO in 2014, have not revealed source of embolism. REC: 1. Needs extended outpatient holter monitor to rule out occult AF. -Can be arranged in office. -Reviewed with patient and card to office given. -Please give her the office number [phone] on the discharge form as well, should follow up in 1-2 weeks post discharge. 2. Would confer with Heme about hypercoag work up. 3. Although there is no documented AF yet, if the CVAs are felt to be clearly embolic, then it would be reasonable to start her on full anticoagulation and continue single antiplatelet therapy. The choice of agent (warfarin or NOAC) depends on patient preferance and her compliance as well was the result of the hypercoag work up (NOACs are not approved in APL syndrome, for example). Thanks, please call if any further questions.
--- NOTE | 2017-11-12 09:33 | PN ---
Teaching Attending Note Name of Resident: Melecoi Roblero ATTENDING PHYSICIAN STATEMENT Time of evaluation: 12:10 PM I saw and evaluated the patient. I reviewed the resident's note and discussed the case with the resident. I agree with the resident's findings and plan as documented. SUBJECTIVE: Patient seen and examined. no complaints. Noted with expressive aphasia, oriented to person only. OBJECTIVE: Vital Signs Period Temp Pulse Resp BP Sys/Glass Pulse Ox Last 24 Hr 98.4 F-99.2 F 60-68 16-23 110-190/53-95 96-100 Intake & Output 11/09/17 11/10/17 11/11/17 11/12/17 23:59 23:59 23:59 23:59 Intake Total 120 Balance 120 Weight 165 lb 165 lb 0.009 oz General; sitting in bed in no acute distress CVS: S1S2 regular Chest: no rales or wheezing Abdomen:soft, obese, NT Extremities: no edema Neuro: AAOx1, some dysarthia, and expressive aphasia, ?mild right facial droop, EOMI, not fully co-operative with neuro exam, moves all extremities freely and symmetrically. Home Medication List Medication Instructions Recorded Confirmed Type Bimatoprost [Lumigan] 1 drop OU DAILY 02/08/17 11/10/17 History Clopidogrel Bisulfate [Plavix -] 75 mg PO DAILY 02/08/17 11/10/17 History Famotidine 20 mg PO DAILY 02/08/17 11/10/17 History Quetiapine Fumarate [Seroquel -] 25 mg PO HS 09/02/17 11/10/17 History Active Medications Generic Name Dose Route Start Last Admin Trade Name Kiana PRN Reason Stop Dose Admin Aspirin 81 mg 11/12/17 10:00 Ecotrin - PO DAILY [facility] Clopidogrel Bisulfate 75 mg 11/11/17 10:00 11/11/17 10:30 Plavix - PO 75 mg DAILY [facility] Administration Enoxaparin Sodium 40 mg 11/12/17 10:00 Lovenox - SQ DAILY [facility] Insulin Aspart 1 vial 11/11/17 07:00 11/12/17 06:15 Novolog Vial Sliding Scale - SQ 4 units ACHS [facility] Administration Protocol Insulin Detemir 12 units 11/11/17 22:00 11/12/17 06:15 Levemir Vial SQ 12 units BID@0700,2200 [facility] Administration Latanoprost 1 drop 11/11/17 22:00 11/11/17 22:23 Xalatan 0.005% Eye Drops - OU 1 drop HS [facility] Administration Metoprolol Succinate 25 mg 11/11/17 10:00 11/11/17 22:24 Toprol Xl - PO 25 mg BID [facility] Administration Ranitidine HCl 150 mg 11/11/17 10:00 11/11/17 10:30 Zantac - PO 150 mg DAILY [facility] Administration Rosuvastatin Calcium 40 mg 11/12/17 22:00 Crestor - PO HS [facility] Laboratory Results - last 24 hr 11/11/17 11/11/17 11/11/17 08:36 11:53 16:56 POC Glucometer [phone] Hemoglobin A1c % 11.3 H 11/11/17 11/12/17 22:23 06:13 POC Glucometer 314 208 Hemoglobin A1c % ASSESSMENT AND PLAN: 67yo F with PMH CVA x5 with R sided weakness and dysarthria, HTN, DM and dyslipidemia presented to the ER with confusion -Acute Right frontal/parietal Lacunar CVA -H/o CVA x 5 -IDDM -HTN Plan: Neurology/cardiology input appreciated. anti-platelet agents for now. Extended outpatient Holter Hematology consult for hypercoagulable work up. Noted patient had prior holter monitoring in 2011 Carotid dopplers with no hemodynamically significant stenosis. 2D echo reviewed. Speech/swallow eval noted. A1c noted, unlikely compliant with home medications. Hold metformin. Continue levemir, ISS, diabetic diet. Out of the window for permissive HTN. Continue metoprolol. DVTPPX with lovenox PT eval, CM consult, anticipate MEHRDAD on discharge, anticipate in 24 hours as arranged. PLan discussed with patient in detail, all questions answered.
[2017-11-12] MEDS: METOPROLOL SUCCINATE 25 MG TAB.SR.24H (FP) PO SCH ×2 (09:48→22:48)
[2017-11-12] MEDS: ASPIRIN COATED 81 MG TABLET.EC PO SCH (09:48)
[2017-11-12] MEDS: ENOXAPARIN NA (PORCINE) 40 MG/0.4 ML DISP.SYRIN SQ SCH (09:48)
[2017-11-12] MEDS: CLOPIDOGREL BISULFATE 75 MG TABLET (FP) PO SCH (09:48)
[2017-11-12] MEDS: RANITIDINE HCL 150 MG TABLET (FP) PO SCH (09:48)
--- NOTE | 2017-11-12 11:04 | PN ---
Progress Note (short form) - Note Progress Note: 67 year old female with a significant past medical history DM, HTN, HLD, 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 The patient states she woke up at her baseline this morning when she had a sudden onset of confusion. She states she was unable to locate any of her belongings and could not remember where she placed any of her items. Neighbor called the ambulance and states the patient was short of breath but patient denies shortness of breath and patient is not in respiratory distress upon arrival to the ED. As per friend, the patients daughter recently and her is admitted in the hospital. Friend states the patient typically has episodes of confusion and is currently under a lot of stress at home. Denies fever or chills. Denies nausea, vomiting, or diarrhea. Denies chest pain or shortness of breath. Denies headache or neck pain. Denies change in strength or sensation. Denies any other symptoms. MRI shows two acute to subacute infarcts, and these are likely embolic, probably cardioembolic, but less likely could be artery to artery emboli. Cardiology consult appreciated and patient to have extended cardiac cath rn as outpatient to evaluate possiblity of occult atrial fibrillation. Await hematology consult to evaluate hypercoagulable state. I am comfortable with anticoagulation with antiplatelet agent, and will defer to PCP and hematology, as well as patient's wishes as to choice of agent. Thanks. Dr. Ashley is covering Sat. I'll be back on .
--- NOTE | 2017-11-12 12:25 | PN ---
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 Known to me from previous eval/tx.
--- NOTE | 2017-11-12 13:55 | CONSULT ---
Consult Consult Specialty:: hematology - History of Present Illness History of Present Illness: 67yo F with PMH CVA x5 with R sided weakness and dysarthria, HTN, DM and dyslipidemia presented to the ER with confusion found to have an acute Right frontal/parietal Lacunar CVA Other PMH includes: H/o CVA x 5, IDDM, HTN Chart reviewed in detail Cardiology/Neurology input noted. Hematology consulted to r/o a hypercoagulable state. Pt seen and examined. Pt complaining of shoulder pain . 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 Cardio/Vascular: Yes: HTN, Hyperlipdemia Endocrine: Yes: Diabetes Mellitus - Past Surgical History Past Surgical History: Yes: Hernia Repair - Alcohol/Substance Use Hx Alcohol Use: No - Smoking History Smoking history: Current some day smoker Have you smoked in the past 12 months: No Aproximately how many cigarettes per day: 1 If you are a former smoker, when did you quit?: states she smokes a couple per year - Social History ADL: Independent History of Recent Travel: No Home Medications - Allergies Allergies/Adverse Reactions: Allergies Allergy/AdvReac Type Severity Reaction Status Date / Time No Known Allergies Allergy Verified 11/10/17 20:14 - Home Medications Home Medications: Ambulatory Orders Bimatoprost [Lumigan] 1 drop OU HS 02/08/17 Clopidogrel Bisulfate [Plavix -] 75 mg PO DAILY 02/08/17 Famotidine 20 mg PO DAILY 02/08/17 Metformin HCl [Glucophage -] 1,000 mg PO BIDAC tablet 02/12/17 Metoprolol Succinate [Toprol XL -] 25 mg PO BID #60 tab 02/12/17 Quetiapine Fumarate [Seroquel -] 25 mg PO HS 09/02/17 Insulin Glargine,Hum.rec.anlog [Lantus Solostar] 25 unit SQ DAILY 11/12/17 Review of Systems - Review of Systems Constitutional: denies: Chills, Diaphoresis, Fever, Lethargy, Loss of Appetite HENT: denies: Difficult Swallowing Neck: denies: Decreased ROM, Lumps Cardiovascular: denies: Chest Pain, Edema, Palpitations, Shortness of Breath Respiratory: denies: Cough, Exercise Intolerance, Hemoptysis, Orthopnea Gastrointestinal: denies: Abdominal Pain, Bloating, Constipation Musculoskeletal: reports: Extremity Pain, Joint Pain Neurological: reports: Pre-Existing Deficit Physical Exam Vital Signs: Vital Signs Temperature 98.6 F 11/12/17 09:00 Pulse Rate 64 11/12/17 09:00 Respiratory Rate 18 11/12/17 09:00 Blood Pressure 153/75 11/12/17 09:00 O2 Sat by Pulse Oximetry (%) 96 11/11/17 22:00 Constitutional: Yes: Anxious, Mild Distress Eyes: Yes: Conjunctiva Clear HENT: Yes: Atraumatic, Normocephalic Neck: Yes: Supple Cardiovascular: Yes: Regular Rate and Rhythm Respiratory: Yes: Regular Gastrointestinal: Yes: Normal Bowel Sounds, Soft Musculoskeletal: Yes: Muscle Pain Edema: No Labs: CBC, BMP 11/11/17 07:42 11/11/17 07:42 Imaging - Results Cat Scan: Report Reviewed MRI: Report Reviewed Assessment/Plan Got approval for sending out HyperCoag work-up. Sent PT gene, FVL , ATIII, Pr C/S, APLS panel, LA, MTHFR. CVAs:on anti-platelet therapy. full AC with single anti-platelet therapy is being considered too. will await hypercoag w/u order ANN too. appreciate cardiology/neurology eval.
[2017-11-12] MEDS: ACETAMINOPHEN 325 MG TABLET (FP) PO PRN ×2 (14:55→22:54)
[2017-11-12] MEDS ORDERED: PT OWN MED DRAWER 7, Y5N ONE (22:43)
[2017-11-12] MEDS: LATANOPROST 0.005% OPHTH SOLN 2.5ML BOTTLE OU SCH (22:49)
[2017-11-12] MEDS: ROSUVASTATIN CA 20 MG TABLET (FP) PO SCH (22:49)
[2017-11-13] MEDS: ACETAMINOPHEN 325 MG TABLET (FP) PO PRN ×2 (05:39→12:00)
--- NOTE | 2017-11-13 06:09 | PN ---
Physical Exam: SUBJECTIVE: Patient seen and examined by me this AM - Still complaining of L shoulder pain, BL posterior neck pain. Likely MSK. No other complaints. Denies PEREYRA/dizziness, vision changes, fever/chills, CP, SOB, JARAMILLO, cough, N/V. Good appetite - Pt complaining of R shoulder pain yesterday, worse with inspiration. Ordered for tylenol. - Pt will require SNF placement. SW aware, CHEY sent. - coag panel still pending OBJECTIVE: Vital Signs Intake & Output 11/10/17 11/11/17 11/12/17 11/13/17 23:59 23:59 23:59 23:59 Intake Total 120 100 Balance 120 100 Weight 74.843 kg 74.843 kg Period Temp Pulse Resp BP Sys/Glass Pulse Ox Last 24 Hr 97.8 F-98.6 F 55-65 18-20 125-160/65-94 96-97 GENERAL: Middle aged woman, lying comfortably in bed, in NAD. Pt A&Ox1 HEAD: Normal with no signs of trauma. EYES: PERRL, extraocular movements intact, sclera anicteric, conjunctiva clear. No ptosis. ENT: Ears normal, nares patent, oropharynx clear without exudates, moist mucous membranes. NECK: Trachea midline, full range of motion, supple. LUNGS: Breath sounds equal, clear to auscultation bilaterally, no wheezes, no crackles, no accessory muscle use. HEART: Regular rate and rhythm, S1, S2 without murmur, rub or gallop. ABDOMEN: Soft, nontender, nondistended, normoactive bowel sounds, no guarding, no rebound, no hepatosplenomegaly, no masses. EXTREMITIES: Pain on palpation of L posterior shoulder. No pain with L arm movement, passive or active. 2+ pulses, warm, well-perfused, no edema. NEUROLOGICAL: Cranial nerves II through XII grossly intact. Speech fluid, but nonsensical. Aphasia PSYCH: Normal mood, normal affect. SKIN: Warm, dry, normal turgor, no rashes or lesions noted Laboratory Results - last 24 hr CBC, BMP 11/11/17 07:42 11/11/17 07:42 11/12/17 11/12/17 11/12/17 06:13 11:42 17:11 POC Glucometer 208 209 196 11/12/17 11/13/17 22:48 05:34 POC Glucometer 209 112 Active Medications Generic Name Dose Route Start Last Admin Trade Name Freq PRN Reason Stop Dose Admin Acetaminophen 650 mg 11/12/17 14:35 11/13/17 05:39 Tylenol - PO 650 mg Q6H PRN Administration PAIN LEVEL 1-5 Aspirin 81 mg 11/12/17 10:00 11/12/17 09:48 Ecotrin - PO 81 mg DAILY [facility] Administration Clopidogrel Bisulfate 75 mg 11/11/17 10:00 11/12/17 09:48 Plavix - PO 75 mg DAILY [facility] Administration Enoxaparin Sodium 40 mg 11/12/17 10:00 11/12/17 09:48 Lovenox - SQ 40 mg DAILY [facility] Administration Insulin Aspart 1 vial 11/11/17 07:00 11/12/17 22:50 Novolog Vial Sliding Scale - SQ 4 units ACHS [facility] Administration Protocol Insulin Detemir 12 units 11/11/17 22:00 11/12/17 22:49 Levemir Vial SQ 12 units BID@0700,2200 [facility] Administration Latanoprost 1 drop 11/11/17 22:00 11/12/17 22:49 Xalatan 0.005% Eye Drops - OU 1 drop HS [facility] Administration Metoprolol Succinate 25 mg 11/11/17 10:00 11/12/17 22:48 Toprol Xl - PO 25 mg BID [facility] Administration Ranitidine HCl 150 mg 11/11/17 10:00 11/12/17 09:48 Zantac - PO 150 mg DAILY [facility] Administration Rosuvastatin Calcium 40 mg 11/12/17 22:00 11/12/17 22:49 Crestor - PO 40 mg HS [facility] Administration Microbiology 11/10/17 20:50 Urine - Urine Clean Catch Urine Culture - Final IMAGIN/28 - Non con CT Head - Impression. No evidence of acute intracranial hemorrhage, edema, midline shift, mass effect, or skull fracture. Old left cerebral infarct involving the left temporal lobe, parietal lobe with compensatory ex vacuo dilatation of the left lateral ventricle including temporal horn. Chronic ischemic changes in the left maira insular region, basal ganglia. Moderate coalescence supratentorial chronic white matter microangiopathic ischemic changes (left > right). No CT evidence of acute territorial ischemia. Noncontrast Brain MRI 11/11/17: COMPARISON: Compared to prior CT scan of the head dated 11/10/2017. Previously visualized large area of encephalomalacia in the left temporal, frontal, parietal and occipital lobe is again seen with cortical laminar necrosis and ex vacuo dilatation of the left lateral ventricle relative to the right. There is an old lacunar infarct in the left basal ganglia, posteriorly. Small focus of increased T2 signal intensity with restricted diffusion in the right periventricular white matter at the level of the chin radiata as well as another focus of the right posterior frontal/parietal junction consistent with acute/subacute lacunar infarcts. Focal old blood product in the medial left thalamus consistent with an old hemorrhagic lacunar infarct. No mass lesion or acute intracranial hemorrhage are identified. There is no shift of the midline structures. The craniocervical junction appears unremarkable. There are also chronic microvascular ischemic changes in the kobe. Flow voids are present within the central intracranial arteries circulation with markedly attenuated flow in the left M2 branches. Both orbits appear unremarkable. No suspicious bone marrow abnormal signal is identified. IMPRESSION: Large area vesiculation again seen involving the left temporal, frontal, occipital and parietal bone with laminar necrosis and exvacuodilatation of the left lateral ventricle. Left basal ganglia old lacunar infarct. Left thalamic old hemorrhagic lacunar infarct, medially. Acute/ subacute lacunar infarct in the right periventricular white matter at the level of the chin radiata and in the right centrum semiovale ovale, posteriorly at the junction of the right posterior frontal and parietal lobe. Carotid doppler 11/11 - No evidence of hemodynamically significant stenosis. 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 #Acute right lacunar infarct -Carotid dopplers-11/10 moderate atherosclerotic disease w/o hemodynamically significant stenosis; ECHO 11/11 - e/o diastolic dysfunction, no sig change from 11/30 - Plan for AC per neurology and cards recs; will discuss with neuro possible lovenox/coumadin briding and if ASA will be continued; risk/benefits addressed with family, pt lacks comprehension - If hypercoag w/u negative, transition to NOAC possibly -Neurology consulted, recs appreciated -S+S seen; continued with regular diet -PT assessment - Pt unsteady able to walk w/ walker 35ft w/ assistance -ASA, c/w Plavix -Crestor 40mg PO HS - Cardiology consult appreciated; continue to recommend 24hour holter monitor as outpt, heme consult and if CVA determined to be definitively embolic, recommend AC w/ warfarin with scale back to one antiplatelet -Heme consult for hypercoag work-up; hypercoaguability work-up pending - 24 hour holter as outpt - prior holter in 2011 #L shoulder pain - likely MSK/muscle spasm/nerve entrapment - Garland-verdugo - Warm compresses - consider botox if not resolved on discharge #DM - poorly controlled (A1C 11.3%), likely due to poor compliance; BGM 334 this AM -Levemir increased from 12U to 14u BID -BGM - ISS ACHS -cont to hold metformin #HTN - No longer requires permissive hypertension; outside of critical window -c/w metoprolol 25mg BID #PPX: Lovenox 40 SQ qd Zantac 150mg qd FEN PO hydration lytes wnl Diabetic diet Plan d/w attending Dr. Luda Roblero, PGY1 Visit type - Emergency Visit Emergency Visit: Yes ED Registration Date: 11/11/17 Care time: The patient presented to the Emergency Department on the above date and was hospitalized for further evaluation of their emergent condition. - New Patient This patient is new to me today: No - Critical Care Critical Care patient: No
[2017-11-13] MEDS: INSULIN SLIDING SCALE (NOVOLOG) 1 VIAL SQ SCH ×4 (06:38→22:30)
[2017-11-13] MEDS: INSULIN DETEMIR 100 UNITS/ML MDV SQ SCH ×2 (06:38→22:29)
--- NOTE | 2017-11-13 09:18 | PN ---
Progress Note, Physician Chief Complaint: TELE: NSR Appreciate Neuro input: feeling is these are cardioembolic CVAs. Heme was consulted for hypercoag w/u - Current Medication List Current Medications: Active Medications Acetaminophen (Tylenol -) 650 mg PO Q6H PRN PRN Reason: PAIN LEVEL 1-5 Last Admin: 11/13/17 05:39 Dose: 650 mg Aspirin (Ecotrin -) 81 mg PO DAILY [facility] Last Admin: 11/12/17 09:48 Dose: 81 mg Clopidogrel Bisulfate (Plavix -) 75 mg PO DAILY [facility] Last Admin: 11/12/17 09:48 Dose: 75 mg Enoxaparin Sodium (Lovenox -) 40 mg SQ DAILY [facility] Last Admin: 11/12/17 09:48 Dose: 40 mg Insulin Aspart (Novolog Vial Sliding Scale -) 1 vial SQ ACHS [facility] PRN Reason: Protocol Last Admin: 11/13/17 06:38 Dose: Not Given Insulin Detemir (Levemir Vial) 12 units SQ BID@0700,2200 [facility] Last Admin: 11/13/17 06:38 Dose: 12 units Latanoprost (Xalatan 0.005% Eye Drops -) 1 drop OU HS [facility] Last Admin: 11/12/17 22:49 Dose: 1 drop Metoprolol Succinate (Toprol Xl -) 25 mg PO BID [facility] Last Admin: 11/12/17 22:48 Dose: 25 mg Ranitidine HCl (Zantac -) 150 mg PO DAILY [facility] Last Admin: 11/12/17 09:48 Dose: 150 mg Rosuvastatin Calcium (Crestor -) 40 mg PO HS [facility] Last Admin: 11/12/17 22:49 Dose: 40 mg - Objective Vital Signs: Vital Signs Temperature 98.1 F 11/13/17 06:00 Pulse Rate 54 L 11/13/17 06:00 Respiratory Rate 20 11/13/17 06:00 Blood Pressure 130/71 11/13/17 06:00 O2 Sat by Pulse Oximetry (%) 97 11/12/17 21:00 Constitutional: Yes: Calm Cardiovascular: Yes: Regular Rate and Rhythm Respiratory: Yes: CTA Bilaterally Gastrointestinal: Yes: Soft Edema: No Neurological: Yes: Alert, Oriented Labs: CBC, BMP 11/11/17 07:42 11/11/17 07:42 INR, PTT INR 0.96 (0.82-1.09) 11/10/17 17:12 Problem List - Problems (1) Cerebrovascular accident (CVA) due to embolism Code(s): I63.9 - CEREBRAL INFARCTION, UNSPECIFIED Qualifiers: Laterality of affected vessel: unspecified (2) Diabetes Code(s): E11.9 - TYPE 2 DIABETES MELLITUS WITHOUT COMPLICATIONS Qualifiers: Diabetes mellitus type: type 2 Diabetes mellitus complication status: with circulatory complication Assessment/Plan 67 F with DM and multiple prior CVAs again presents with acute/subacute CVA. Work up, including prior FRANSISCO in 2014, have not revealed source of embolism. REC: 1. Needs extended outpatient holter monitor to rule out occult AF. -Can be arranged in office. -Reviewed with patient and card to office given. -Please give her the office number [phone] on the discharge form as well, should follow up in 1-2 weeks post discharge. 2. Heme consulted, hypercoag w/u in progress 3. Appreciate Neuro input: these appear to be embolic strokes, likely cardioembolic (suspected occult PAF, prior FRANSISCO 2015 WNL). In this case, reasonable to begin full AC with warfarin to an INR of 2-3 while we await the hypercoag w/u and repeat the extended outpatient holter. Would then scale back to single antiplatelet therapy. She should have an INR soon as outpatient. In future, we may be able to switch to NOAC pending evaluation above.
[2017-11-13] MEDS: CLOPIDOGREL BISULFATE 75 MG TABLET (FP) PO SCH (10:54)
[2017-11-13] MEDS: RANITIDINE HCL 150 MG TABLET (FP) PO SCH (10:54)
[2017-11-13] MEDS: METOPROLOL SUCCINATE 25 MG TAB.SR.24H (FP) PO SCH ×2 (10:54→22:27)
[2017-11-13] MEDS: ASPIRIN COATED 81 MG TABLET.EC PO SCH (10:54)
[2017-11-13] MEDS: ENOXAPARIN NA (PORCINE) 40 MG/0.4 ML DISP.SYRIN SQ SCH (10:54)
--- NOTE | 2017-11-13 11:03 | PN ---
Progress Note (short form) - Note Progress Note: 67 year old female with a significant past medical history DM, HTN, HLD, 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 The patient states she woke up at her baseline this morning when she had a sudden onset of confusion. She states she was unable to locate any of her belongings and could not remember where she placed any of her items. Neighbor called the ambulance and states the patient was short of breath but patient denies shortness of breath and patient is not in respiratory distress upon arrival to the ED. As per friend, the patients daughter recently and her is admitted in the hospital. Friend states the patient typically has episodes of confusion and is currently under a lot of stress at home. Denies fever or chills. Denies nausea, vomiting, or diarrhea. Denies chest pain or shortness of breath. Denies headache or neck pain. Denies change in strength or sensation. Denies any other symptoms. baseline aphasia , difficult to get HX A1c uncontrolled / UA (-) + glucose 8034-8189 MRI/BRAIN MRI W/O CONTRAST Confusion. Rule out TIA MRI of the brain without intravenous contrast A noncontrast MRI of the brain was performed with multiplanar T1 and T2-weighted images obtained. Compared to prior CT scan of the head dated 11/10/2017 Previously visualized large area of encephalomalacia in the left temporal, frontal, parietal and occipital lobe is again seen with cortical laminar necrosis and ex vacuo dilatation of the left lateral ventricle relative to the right. There is an old lacunar infarct in the left basal ganglia , posteriorly. Small focus of increased T2 signal intensity with restricted diffusion in the right periventricular white matter at the level of the chin radiata as well as another focus of the right posterior frontal/parietal junction consistent with acute/subacute lacunar infarcts. Focal old blood product in the medial left thalamus consistent with an old hemorrhagic lacunar infarct. No mass lesion or acute intracranial hemorrhage are identified. There is no shift of the midline structures. The craniocervical junction appears unremarkable. There are also chronic microvascular ischemic changes in the kobe. Flow voids are present within the central intracranial arteries circulation with markedly attenuated flow in the left M2 branches. Both orbits appear unremarkable. No suspicious bone marrow abnormal signal is identified. IMPRESSION: Large area vesiculation again seen involving the left temporal, frontal, occipital and parietal bone with laminar necrosis and exvacuodilatation of the left lateral ventricle. Left basal ganglia old lacunar infarct. Left thalamic old hemorrhagic lacunar infarct, medially. Acute/ subacute lacunar infarct in the right periventricular white matter at the level of the chin radiata and in the right centrum semiovale ovale, posteriorly at the junction of the right posterior frontal and parietal lobe. 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 Cardio/Vascular: Yes: HTN, Hyperlipdemia Endocrine: Yes: Diabetes Mellitus - Alcohol/Substance Use Hx Alcohol Use: No - Smoking History Smoking history: Current some day smoker Have you smoked in the past 12 months: No Aproximately how many cigarettes per day: 1 If you are a former smoker, when did you quit?: states she smokes a couple per year - Social History ADL: Independent History of Recent Travel: No Home Medications - Allergies Allergies/Adverse Reactions: Allergies Allergy/AdvReac Type Severity Reaction Status Date / Time No Known Allergies Allergy Verified 11/10/17 20:14 - Home Medications Home Medications: Ambulatory Orders Bimatoprost [Lumigan] 1 drop OU DAILY 02/08/17 Clopidogrel Bisulfate [Plavix -] 75 mg PO DAILY 02/08/17 Famotidine 20 mg PO DAILY 02/08/17 Insulin (Levemir) [Levemir Vial] 12 units SQ BID #1 ml 02/12/17 Metformin HCl [Glucophage -] 1,000 mg PO BIDAC tablet 02/12/17 Metoprolol Succinate [Toprol XL -] 25 mg PO BID #60 tab 02/12/17 Quetiapine Fumarate [Seroquel -] 25 mg PO HS 09/02/17 Physical Exam-Neuro Vital Signs: Vital Signs Temperature 98.1 F 11/13/17 06:00 Pulse Rate 54 L 11/13/17 06:00 Respiratory Rate 20 11/13/17 06:00 Blood Pressure 130/71 11/13/17 06:00 O2 Sat by Pulse Oximetry (%) 97 11/12/17 21:00 Constitutional: Yes: Well Nourished Neck: Yes: WNL Labs: CBCD WBC 7.6 K/mm3 (4.0-10.0) 11/11/17 07:42 RBC 4.31 M/mm3 (3.60-5.2) 11/11/17 07:42 Hgb 12.0 GM/dL (10.7-15.3) 11/11/17 07:42 Hct 36.8 % (32.4-45.2) 11/11/17 07:42 MCV 85.5 fl (80-96) 11/11/17 07:42 MCHC 32.5 g/dl (32.0-36.0) 11/11/17 07:42 RDW 13.2 % (11.6-15.6) 11/11/17 07:42 Plt Count 205 K/MM3 (134-434) 11/11/17 07:42 MPV 8.2 fl (7.5-11.1) 11/11/17 07:42 CMP Sodium 138 mmol/L (136-145) 11/11/17 07:42 Potassium 4.4 mmol/L (3.5-5.1) 11/11/17 07:42 Chloride 101 mmol/L (98-107) 11/11/17 07:42 Carbon Dioxide 30 mmol/L (21-32) 11/11/17 07:42 Anion Gap 7 (8-16) L 11/11/17 07:42 BUN 22 mg/dL (7-18) H 11/11/17 07:42 Creatinine 0.9 mg/dL (0.55-1.02) 11/11/17 07:42 Creat Clearance w eGFR > 60 (>60) 11/11/17 07:42 Calcium 8.7 mg/dL (8.5-10.1) 11/11/17 07:42 Total Bilirubin 1.1 mg/dL (0.2-1.0) H D 11/11/17 07:42 AST 9 U/L (15-37) L 11/11/17 07:42 ALT 14 U/L (12-78) 11/11/17 07:42 Alkaline Phosphatase 106 U/L (45-117) 11/11/17 07:42 Total Protein 7.1 g/dl (6.4-8.2) 11/11/17 07:42 Albumin 3.5 g/dl (3.4-5.0) 11/11/17 07:42 - Neuro Exam Level Of Consciousness: Yes: Alert (awake , alert, , non fluent speech, + naming difficulty, unable to reapeat, hold RUE triple flxed , mild right hemiparesis , R plantar up , giat not tested) Imaging - Results Cat Scan: Report Reviewed, Image Reviewed MRI: Report Reviewed, Image Reviewed Problem List - Problems (1) Cerebrovascular accident (CVA) due to embolism Code(s): I63.9 - CEREBRAL INFARCTION, UNSPECIFIED (2) Dysarthria Code(s): R47.1 - DYSARTHRIA AND ANARTHRIA (3) Hyperglycemia due to type 2 diabetes mellitus Code(s): E11.65 - TYPE 2 DIABETES MELLITUS WITH HYPERGLYCEMIA Qualifiers: Diabetes mellitus assisted insulin use: with assisted use Qualified Code( s): E11.65 - Type 2 diabetes mellitus with hyperglycemia; Z79.4 - intermediate ( current) use of insulin; Z79.4 - intermediate (current) use of insulin; Z79.4 - intermediate (current) use of insulin; Z79.4 - termite treater (current) use of insulin Assessment/Plan 67 year old female with a significant past medical history DM, HTN, HLD, 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 The patient states she woke up at her baseline this morning when she had a sudden onset of confusion. She states she was unable to locate any of her belongings and could not remember where she placed any of her items. Neighbor called the ambulance and states the patient was short of breath but patient denies shortness of breath and patient is not in respiratory distress upon arrival to the ED. As per friend, the patients daughter recently and her is admitted in the hospital. Friend states the patient typically has episodes of confusion and is currently under a lot of stress at home. Denies fever or chills. Denies nausea, vomiting, or diarrhea. Denies chest pain or shortness of breath. Denies headache or neck pain. Denies change in strength or sensation. Denies any other symptoms. baseline aphasia , mild right hemiparesis A1c uncontrolled / UA (-) + glucose [id number] MRI/BRAIN MRI W/O CONTRAST IMPRESSION: Large area vesiculation again seen involving the left temporal, frontal, occipital and parietal bone with laminar necrosis and exvacuodilatation of the left lateral ventricle. Left basal ganglia old lacunar infarct. Left thalamic old hemorrhagic lacunar infarct , medially. Acute/subacute lacunar infarct in the right periventricular white matter at the level of the chin radiata and in the right centrum semiovale ovale, posteriorly at the junction of the right posterior frontal and parietal lobe. AP : HX of LMCA stroke with residual aphasia/R hemiparesis comes in with confusion , poorly controlled sugars and BP with new stroke on MRI suggestive of embolic events, cardiac vs hypercoag (suspect the former) DM control agree with AC and assisted holter as outpt (? if she requires ASA as well ) hyper coag CHAPARRO P can do PT for neck spasm /dystonia, may do well with BOTOX if continues as an outpt (muscle relaxant can be added though can be sedating) Dr Ashley Problem List - Problems (1) Cerebrovascular accident (CVA) due to embolism Code(s): I63.9 - CEREBRAL INFARCTION, UNSPECIFIED Qualifiers: Laterality of affected vessel: unspecified (2) Dysarthria Code(s): R47.1 - DYSARTHRIA AND ANARTHRIA (3) Hyperglycemia due to type 2 diabetes mellitus Code(s): E11.65 - TYPE 2 DIABETES MELLITUS WITH HYPERGLYCEMIA Qualifiers: Diabetes mellitus termite treater insulin use: with termite treater use Qualified Code( s): E11.65 - Type 2 diabetes mellitus with hyperglycemia; Z79.4 - intermediate ( current) use of insulin; Z79.4 - intermediate (current) use of insulin; Z79.4 - intermediate (current) use of insulin; Z79.4 - intermediate (current) use of insulin
--- NOTE | 2017-11-13 12:36 | PN ---
Teaching Attending Note Name of Resident: Melecio Roblero ATTENDING PHYSICIAN STATEMENT Time of evaluation: 10:20 AM I saw and evaluated the patient. I reviewed the resident's note and discussed the case with the resident. I agree with the resident's findings and plan as documented. SUBJECTIVE: Patient seen and examined. reports left upper back pain and limitation in movements today. No other complaints. OBJECTIVE: Vital Signs Period Temp Pulse Resp BP Sys/Glass Pulse Ox Last 24 Hr 97.8 F-98.6 F 54-65 20-20 125-160/64-94 97 Intake & Output 11/10/17 11/11/17 11/12/17 11/13/17 23:59 23:59 23:59 23:59 Intake Total 120 100 Balance 120 100 Weight 165 lb 165 lb 0.009 oz general: sitting in chair in no acute distress Musculoskeletal: focal area of tenderness in left scapular region with no swelling/erythema or gross abnormality, full ROM at left shoulder Neuro; AAOX1, unchanged exam Home Medication List Medication Instructions Recorded Confirmed Type Bimatoprost [Lumigan] 1 drop OU HS 02/08/17 11/12/17 History Clopidogrel Bisulfate [Plavix -] 75 mg PO DAILY 02/08/17 11/10/17 History Famotidine 20 mg PO DAILY 02/08/17 11/10/17 History Quetiapine Fumarate [Seroquel -] 25 mg PO HS 09/02/17 11/10/17 History Insulin Glargine,Hum.rec.anlog 25 unit SQ DAILY 11/12/17 11/12/17 History [Lantus Solostar] Active Medications Generic Name Dose Route Start Last Admin Trade Name Freq PRN Reason Stop Dose Admin Acetaminophen 650 mg 11/12/17 14:35 11/13/17 12:00 Tylenol - PO 650 mg Q6H PRN Administration PAIN LEVEL 1-5 Aspirin 81 mg 11/12/17 10:00 11/13/17 10:54 Ecotrin - PO 81 mg DAILY [facility] Administration Clopidogrel Bisulfate 75 mg 11/11/17 10:00 11/13/17 10:54 Plavix - PO 75 mg DAILY [facility] Administration Enoxaparin Sodium 40 mg 11/12/17 10:00 11/13/17 10:54 Lovenox - SQ 40 mg DAILY [facility] Administration Insulin Aspart 1 vial 11/11/17 07:00 11/13/17 11:59 Novolog Vial Sliding Scale - SQ 8 units ACHS [facility] Administration Protocol Insulin Detemir 12 units 11/11/17 22:00 11/13/17 06:38 Levemir Vial SQ 12 units BID@0700,2200 [facility] Administration Latanoprost 1 drop 11/11/17 22:00 11/12/17 22:49 Xalatan 0.005% Eye Drops - OU 1 drop HS [facility] Administration Metoprolol Succinate 25 mg 11/11/17 10:00 11/13/17 10:54 Toprol Xl - PO 25 mg BID [facility] Administration Ranitidine HCl 150 mg 11/11/17 10:00 11/13/17 10:54 Zantac - PO 150 mg DAILY [facility] Administration Rosuvastatin Calcium 40 mg 11/12/17 22:00 11/12/17 22:49 Crestor - PO 40 mg HS [facility] Administration Laboratory Results - last 24 hr 11/12/17 11/12/17 11/13/17 17:11 22:48 05:34 POC Glucometer 196 209 112 11/13/17 11:01 POC Glucometer 339 Microbiology 11/10/17 20:50 Urine - Urine Clean Catch Urine Culture - Final ASSESSMENT AND PLAN: 67yo F with PMH 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 Plan for AC. Discuss with neurology about possible Lovenox/coumadin bridging and if ASA will need to be continued. Check renal function and baseline INR before the same. Address in detail risks/benefits of AC with family, patient unable to fully comprehend the same herself. Extended outpatient Holter Hematology consult noted, hypercoagulable w/u sent. Patient may eventually be transitioned to NOAC if hypercoagulable w/u neg. Noted patient had prior holter monitoring in 2011 Carotid dopplers with no hemodynamically significant stenosis. 2D echo reviewed. Speech/swallow eval noted. A1c noted, unlikely compliant with home medications. Hold metformin. Continue levemir, ISS, diabetic diet. Out of the window for permissive HTN. Continue metoprolol. Heat pad/bengay for left scapular muscle pain. DVTPPX with lovenox PT julisa CM consult, anticipate MEHRDAD on discharge, anticipate in 24 hours pending final discussion on anti-coagulation and follow up.
[2017-11-13 13:37] LABS: ANION GAP 10 (8-16); BLOOD UREA NITROGEN 25 mg/dL (7-18); CALCIUM 8.8 mg/dL (8.5-10.1); CHLORIDE 99 mmol/L (98-107); CO2 26 mmol/L (21-32); POTASSIUM 4.2 mmol/L (3.5-5.1); SODIUM 135 mmol/L (136-145)
[2017-11-13 13:42] LABS: GLUCOSE,RANDOM 334 mg/dL (74-106)
[2017-11-13 13:55] LABS: INR 1.07 (0.82-1.09); PROTHROMBIN TIME (PATIENT) 12.1 SEC (9.98-11.88)
[2017-11-13] MEDS: METHYL SALICYLATE/MENTHOL OINT 30 GM TUBE TP SCH ×2 (16:56→22:35)
[2017-11-13] MEDS ORDERED: INSULIN (NOVOLOG) ASPART 100 UNITS/ML 10ML VIAL ONE (21:47)
[2017-11-13] MEDS ORDERED: PT OWN MED DRAWER 7, Y5N ONE (21:47)
[2017-11-13] MEDS: ROSUVASTATIN CA 20 MG TABLET (FP) PO SCH (22:27)
[2017-11-13] MEDS: LATANOPROST 0.005% OPHTH SOLN 2.5ML BOTTLE OU SCH (22:27)
[2017-11-14] MEDS: ACETAMINOPHEN 325 MG TABLET (FP) PO PRN ×2 (01:08→13:04)
--- NOTE | 2017-11-14 05:32 | PN ---
Physical Exam: SUBJECTIVE: Patient seen and examined by bridger charles AM - [facility] complete for SNF placement. No major overnight events. Shoulder pain improved with heating pads, Bengay. Denies fever/chills, PEREYRA/dizziness/vision changes, CP, SOB, chest tightness, N/V, ab pain, diarrhea, dysuria, peripheral numbness or weakness. - Will start on coumadin as outpt at low dose. Attempt made to contact family via number provided, however not a functional phone line. Will try alternate means. OBJECTIVE: Vital Signs Intake & Output 11/11/17 11/12/17 11/13/17 11/14/17 23:59 23:59 23:59 23:59 Intake Total 120 100 Balance 120 100 Weight 74.843 kg Period Temp Pulse Resp BP Sys/Glass Pulse Ox Last 24 Hr 98.1 F-98.8 F 54-70 20-20 118-154/61-74 95-98 GENERAL: Pt lying comfortably in bed, in NAD. Pt A&Ox1 HEAD: Normal with no signs of trauma. EYES: PERRL, extraocular movements intact, sclera anicteric, conjunctiva clear. No ptosis. ENT: Ears normal, nares patent, oropharynx clear without exudates, moist mucous membranes. NECK: Trachea midline, full range of motion, supple. LUNGS: Breath sounds equal, clear to auscultation bilaterally, no wheezes, no crackles, no accessory muscle use. HEART: Regular rate and rhythm, S1, S2 without murmur, rub or gallop. ABDOMEN: Soft, nontender, nondistended, normoactive bowel sounds, no guarding, no rebound, no hepatosplenomegaly, no masses. EXTREMITIES: Mild pain on palpation of posterior shoulder. Still no pain with L arm movement, passive or active. 2+ pulses, warm, well-perfused, no edema. NEUROLOGICAL: Cranial nerves II through XII grossly intact. Speech fluid, more linear now. Mild aphasia, agnosia PSYCH: Normal mood, normal affect. SKIN: Warm, dry, normal turgor, no rashes or lesions noted Laboratory Results - last 24 hr CBC, BMP 11/11/17 07:42 11/14/17 06:52 11/11/17 07:42 11/13/17 12:50 11/13/17 11/13/17 11/13/17 05:34 11:01 12:50 PT with INR 12.10 H INR 1.07 Sodium Potassium Chloride Carbon Dioxide Anion Gap BUN Creatinine POC Glucometer 112 339 Random Glucose Calcium 11/13/17 11/13/17 11/13/17 12:50 16:53 22:24 PT with INR INR Sodium 135 L Potassium 4.2 Chloride 99 Carbon Dioxide 26 Anion Gap 10 BUN 25 H Creatinine 1.0 POC Glucometer 225 278 Random Glucose 334 H* Calcium 8.8 Active Medications Generic Name Dose Route Start Last Admin Trade Name Freq PRN Reason Stop Dose Admin Acetaminophen 650 mg 11/12/17 14:35 11/14/17 01:08 Tylenol - PO 650 mg Q6H PRN Administration PAIN LEVEL 1-5 Aspirin 81 mg 11/12/17 10:00 11/13/17 10:54 Ecotrin - PO 81 mg DAILY [facility] Administration Clopidogrel Bisulfate 75 mg 11/11/17 10:00 11/13/17 10:54 Plavix - PO 75 mg DAILY [facility] Administration Enoxaparin Sodium 40 mg 11/12/17 10:00 11/13/17 10:54 Lovenox - SQ 40 mg DAILY [facility] Administration Insulin Aspart 1 vial 11/11/17 07:00 11/13/17 22:30 Novolog Vial Sliding Scale - SQ 6 units ACHS [facility] Administration Protocol Insulin Detemir 14 units 11/13/17 22:00 11/13/17 22:29 Levemir Vial SQ 14 units BID@0700,2200 [facility] Administration Latanoprost 1 drop 11/11/17 22:00 11/13/17 22:27 Xalatan 0.005% Eye Drops - OU 1 drop HS [facility] Administration Methyl Salicylate 1 applic 11/13/17 13:30 11/13/17 22:35 Garland-Verdugo - TP 1 applic BID [facility] Administration Metoprolol Succinate 25 mg 11/11/17 10:00 11/13/17 22:27 Toprol Xl - PO 25 mg BID [facility] Administration Ranitidine HCl 150 mg 11/11/17 10:00 11/13/17 10:54 Zantac - PO 150 mg DAILY [facility] Administration Rosuvastatin Calcium 40 mg 11/12/17 22:00 11/13/17 22:27 Crestor - PO 40 mg HS [facility] Administration Microbiology 11/10/17 20:50 Urine - Urine Clean Catch Urine Culture - Final IMAGIN/28 - Non con CT Head - Impression. No evidence of acute intracranial hemorrhage, edema, midline shift, mass effect, or skull fracture. Old left cerebral infarct involving the left temporal lobe, parietal lobe with compensatory ex vacuo dilatation of the left lateral ventricle including temporal horn. Chronic ischemic changes in the left maira insular region, basal ganglia. Moderate coalescence supratentorial chronic white matter microangiopathic ischemic changes (left > right). No CT evidence of acute territorial ischemia. Noncontrast Brain MRI 11/11/17: COMPARISON: Compared to prior CT scan of the head dated 11/10/2017. Previously visualized large area of encephalomalacia in the left temporal, frontal, parietal and occipital lobe is again seen with cortical laminar necrosis and ex vacuo dilatation of the left lateral ventricle relative to the right. There is an old lacunar infarct in the left basal ganglia, posteriorly. Small focus of increased T2 signal intensity with restricted diffusion in the right periventricular white matter at the level of the chin radiata as well as another focus of the right posterior frontal/parietal junction consistent with acute/subacute lacunar infarcts. Focal old blood product in the medial left thalamus consistent with an old hemorrhagic lacunar infarct. No mass lesion or acute intracranial hemorrhage are identified. There is no shift of the midline structures. The craniocervical junction appears unremarkable. There are also chronic microvascular ischemic changes in the kobe. Flow voids are present within the central intracranial arteries circulation with markedly attenuated flow in the left M2 branches. Both orbits appear unremarkable. No suspicious bone marrow abnormal signal is identified. IMPRESSION: Large area vesiculation again seen involving the left temporal, frontal, occipital and parietal bone with laminar necrosis and exvacuodilatation of the left lateral ventricle. Left basal ganglia old lacunar infarct. Left thalamic old hemorrhagic lacunar infarct, medially. Acute/ subacute lacunar infarct in the right periventricular white matter at the level of the chin radiata and in the right centrum semiovale ovale, posteriorly at the junction of the right posterior frontal and parietal lobe. Carotid doppler 11/11 - No evidence of hemodynamically significant stenosis. 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 #Acute right lacunar infarct -Carotid dopplers-11/10 moderate atherosclerotic disease w/o hemodynamically significant stenosis; ECHO 11/11 - e/o diastolic dysfunction, no sig change from 11/30 - If hypercoag w/u negative, transition to NOAC possibly -Neurology consulted, recs appreciated -S+S seen; continued with regular diet -PT assessment - Pt unsteady able to walk w/ walker 35ft w/ assistance -ASA, c/w Plavix -Crestor 40mg PO HS - Cardiology consult appreciated; continue to recommend 24hour holter monitor as outpt, heme consult and if CVA determined to be definitively embolic, recommend AC w/ warfarin with scale back to one antiplatelet -Heme consult for hypercoag work-up; hypercoaguability work-up pending - 24 hour holter as outpt - prior holter in 2011 #L shoulder pain - likely MSK/muscle spasm/nerve entrapment - Garland-verdugo - Warm compresses - consider botox if not resolved on discharge #DM - poorly controlled (A1C 11.3%), likely due to poor compliance; BGM 334 this AM -Levemir increased from 12U to 14u BID -BGM - ISS ACHS -cont to hold metformin #HTN - No longer requires permissive hypertension; outside of critical window -c/w metoprolol 25mg BID #PPX: Lovenox 40 SQ qd Zantac 150mg qd FEN PO hydration lytes wnl Diabetic diet Plan d/w attending Dr. Luda Roblero, PGY1
[2017-11-14] MEDS ORDERED: PT OWN MED DRAWER 7, Y5N ONE (06:25)
[2017-11-14] MEDS: INSULIN SLIDING SCALE (NOVOLOG) 1 VIAL SQ SCH ×3 (06:37→17:09)
[2017-11-14] MEDS: INSULIN DETEMIR 100 UNITS/ML MDV SQ SCH (06:37)
[2017-11-14] MEDS ORDERED: INSULIN (NOVOLOG) ASPART 100 UNITS/ML 10ML VIAL ONE ×2 (06:42→11:43)
[2017-11-14] MEDS ORDERED: ENOXAPARIN NA (PORCINE) 80 MG/0.8 ML DISP.SYRIN SQ SCH (07:30)
[2017-11-14 08:20] LABS: INR 1.04 (0.82-1.09); PROTHROMBIN TIME (PATIENT) 11.8 SEC (9.98-11.88)
[2017-11-14] MEDS ORDERED: INSULIN DETEMIR 100 UNITS/ML MDV SQ SCH (08:21)
[2017-11-14] MEDS ORDERED: metFORMIN HCL 500 MG TABLET (FP) PO ONE ×2 (08:26→12:00)
--- NOTE | 2017-11-14 08:26 | PN ---
Progress Note, Physician Chief Complaint: no new complaints - Current Medication List Current Medications: Active Medications Acetaminophen (Tylenol -) 650 mg PO Q6H PRN PRN Reason: PAIN LEVEL 1-5 Last Admin: 11/14/17 01:08 Dose: 650 mg Enoxaparin Sodium (Lovenox -) 75 mg SQ Q12H [facility] Last Admin: 11/14/17 08:24 Dose: 75 mg Insulin Aspart (Novolog Vial Sliding Scale -) 1 vial SQ ACHS [facility] PRN Reason: Protocol Last Admin: 11/14/17 06:37 Dose: 2 units Insulin Detemir (Levemir Vial) 15 units SQ BID@0700,2200 [facility] Latanoprost (Xalatan 0.005% Eye Drops -) 1 drop OU HS [facility] Last Admin: 11/13/17 22:27 Dose: 1 drop Methyl Salicylate (Garland-Montoya -) 1 applic TP BID [facility] Last Admin: 11/13/17 22:35 Dose: 1 applic Metoprolol Succinate (Toprol Xl -) 25 mg PO BID [facility] Last Admin: 11/13/17 22:27 Dose: 25 mg Ranitidine HCl (Zantac -) 150 mg PO DAILY [facility] Last Admin: 11/13/17 10:54 Dose: 150 mg Rosuvastatin Calcium (Crestor -) 40 mg PO HS [facility] Last Admin: 11/13/17 22:27 Dose: 40 mg Warfarin Sodium (Coumadin -) 2 mg PO DAILY@1800 [facility] - Objective Vital Signs: Vital Signs Temperature 97.4 F L 11/14/17 06:00 Pulse Rate 52 L 11/14/17 06:00 Respiratory Rate 20 11/14/17 06:00 Blood Pressure 110/54 11/14/17 06:00 O2 Sat by Pulse Oximetry (%) 95 11/13/17 19:58 Constitutional: Yes: No Distress Cardiovascular: Yes: Regular Rate and Rhythm Respiratory: Yes: CTA Bilaterally Gastrointestinal: Yes: Soft Edema: No Neurological: Yes: Alert Labs: CBC, BMP 11/11/17 07:42 INR, PTT INR 1.07 (0.82-1.09) 11/13/17 12:50 Laboratory Tests 11/11/17 11/13/17 11/14/17 07:42 12:50 06:52 WBC 7.6 Hgb 12.0 Plt Count 205 INR 1.07 Sodium Pending Potassium Pending BUN Pending Creatinine Pending Calcium Pending - ....Imaging EKG: Image Reviewed (NSR, 3 beat run NSVT, self limited) Problem List - Problems (1) Cerebrovascular accident (CVA) due to embolism Code(s): I63.9 - CEREBRAL INFARCTION, UNSPECIFIED Qualifiers: Laterality of affected vessel: unspecified (2) Diabetes Code(s): E11.9 - TYPE 2 DIABETES MELLITUS WITHOUT COMPLICATIONS Qualifiers: Diabetes mellitus type: type 2 Diabetes mellitus complication status: with circulatory complication Assessment/Plan 67 F with DM and multiple prior CVAs again presents with acute/subacute CVA. Work up, including prior FRANSISCO in 2015, have not revealed source of embolism. REC: 1. Needs extended outpatient holter monitor to rule out occult AF. -Can be arranged in office. -Reviewed with patient and card to office given. -Please give her the office number [phone] on the discharge form as well, should follow up in 1-2 weeks post discharge. 2. Heme consulted, hypercoag w/u in progress 3. Appreciate Neuro input: these appear to be embolic strokes, likely cardioembolic (suspected occult PAF, prior FRANSISCO 2015 WNL). In this case, reasonable to begin full AC with warfarin to an INR of 2-3 while we await the hypercoag w/u and repeat the extended outpatient holter. Would then scale back to single antiplatelet therapy. She should have an INR soon as outpatient. Currently being treated with Lovenox transition to coumadin.
--- NOTE | 2017-11-14 08:26 | PN ---
Teaching Attending Note Name of Resident: Melecio Roblero ATTENDING PHYSICIAN STATEMENT Time of evaluation: 9:30 AM I saw and evaluated the patient. I reviewed the resident's note and discussed the case with the resident. I agree with the resident's findings and plan as documented. SUBJECTIVE: Patient seen and examined. sitting in chair, no complaints. OBJECTIVE: Vital Signs Period Temp Pulse Resp BP Sys/Glass Pulse Ox Last 24 Hr 97.4 F-98.8 F 52-70 20-20 110-154/54-74 95-98 Intake & Output 11/11/17 11/12/17 11/13/17 11/14/17 23:59 23:59 23:59 23:59 Intake Total 120 100 Balance 120 100 Weight 165 lb 0.009 oz General: sitting in chair in no acute distress Neuro: AAOx1, expressive aphasia, mild right facial droop unchanged Home Medication List Medication Instructions Recorded Confirmed Type Bimatoprost [Lumigan] 1 drop OU HS 02/08/17 11/12/17 History Clopidogrel Bisulfate [Plavix -] 75 mg PO DAILY 02/08/17 11/10/17 History Famotidine 20 mg PO DAILY 02/08/17 11/10/17 History Quetiapine Fumarate [Seroquel -] 25 mg PO HS 09/02/17 11/10/17 History Insulin Glargine,Hum.rec.anlog 25 unit SQ DAILY 11/12/17 11/12/17 History [Lantus Solostar] Active Medications Generic Name Dose Route Start Last Admin Trade Name Freq PRN Reason Stop Dose Admin Acetaminophen 650 mg 11/12/17 14:35 11/14/17 01:08 Tylenol - PO 650 mg Q6H PRN Administration PAIN LEVEL 1-5 Enoxaparin Sodium 75 mg 11/14/17 07:30 Lovenox - SQ Q12H [facility] Insulin Aspart 1 vial 11/11/17 07:00 11/14/17 06:37 Novolog Vial Sliding Scale - SQ 2 units ACHS [facility] Administration Protocol Insulin Detemir 15 units 11/14/17 08:21 Levemir Vial SQ BID@0700,2200 [facility] Latanoprost 1 drop 11/11/17 22:00 11/13/17 22:27 Xalatan 0.005% Eye Drops - OU 1 drop HS [facility] Administration Methyl Salicylate 1 applic 11/13/17 13:30 11/13/17 22:35 Garland-Montoya - TP 1 applic BID [facility] Administration Metoprolol Succinate 25 mg 11/11/17 10:00 11/13/17 22:27 Toprol Xl - PO 25 mg BID [facility] Administration Ranitidine HCl 150 mg 11/11/17 10:00 11/13/17 10:54 Zantac - PO 150 mg DAILY [facility] Administration Rosuvastatin Calcium 40 mg 11/12/17 22:00 11/13/17 22:27 Crestor - PO 40 mg HS [facility] Administration Warfarin Sodium 2 mg 11/14/17 18:00 Coumadin - PO DAILY@1800 [facility] Laboratory Results - last 24 hr 11/13/17 11/13/17 11/13/17 12:50 12:50 16:53 PT with INR 12.10 H INR 1.07 Sodium 135 L Potassium 4.2 Chloride 99 Carbon Dioxide 26 Anion Gap 10 BUN 25 H Creatinine 1.0 POC Glucometer 225 Random Glucose 334 H* Calcium 8.8 11/13/17 11/14/17 11/14/17 22:24 06:30 06:52 PT with INR 11.80 INR 1.04 Sodium Potassium Chloride Carbon Dioxide Anion Gap BUN Creatinine POC Glucometer 278 193 Random Glucose Calcium 11/14/17 11/14/17 06:52 11:13 PT with INR INR Sodium 140 Potassium 4.5 Chloride 103 Carbon Dioxide 30 Anion Gap 7 L BUN 24 H Creatinine 0.9 POC Glucometer 250 Random Glucose 170 H Calcium 9.0 Microbiology 11/10/17 20:50 Urine - Urine Clean Catch Urine Culture - Final ASSESSMENT AND PLAN: 67yo F with PMH 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 Ashley/Dr. Adorno, will d/c ASA/plavix and start lovenox /coumadin bridging. Patient may eventually be able to be transitioned to NOAC if hypercoagulable w/ u neg. Address in detail risks/benefits of AC with family, patient unable to fully comprehend the same herself, however, given multiple CVAs and likely cardioembolic based on presentation, risks of holding anti-coagulation higher than benefits. Dietary consult for coumadin education. Extended outpatient Holter Hematology consult noted, hypercoagulable w/u sent. Noted patient had prior holter monitoring in 2011 Carotid dopplers with no hemodynamically significant stenosis. 2D echo reviewed. Speech/swallow eval noted. A1c noted, unlikely compliant with home medications. Increase levemir to 15 units BID, resume metformin, ISS, diabetic diet. Out of the window for permissive HTN. Continue metoprolol. Heat pad/bengay for left scapular muscle pain. DVTPPX with lovenox PT eval, CM consult, d/ c to MEHRDAD when disposition arranged, arrange clinic follow up for Ruenes in 2 weeks to ensure appropriate management of her anti- coagulation and medication changes as indicated.
[2017-11-14 08:37] LABS: ANION GAP 7 (8-16); BLOOD UREA NITROGEN 24 mg/dL (7-18); CHLORIDE 103 mmol/L (98-107); CO2 30 mmol/L (21-32); CREATININE 0.9 mg/dL (0.55-1.02); GLUCOSE,RANDOM 170 mg/dL (74-106); POTASSIUM 4.5 mmol/L (3.5-5.1); SODIUM 140 mmol/L (136-145)
[2017-11-14] MEDS: METHYL SALICYLATE/MENTHOL OINT 30 GM TUBE TP SCH (09:14)
[2017-11-14] MEDS: RANITIDINE HCL 150 MG TABLET (FP) PO SCH (09:14)
[2017-11-14] MEDS: METOPROLOL SUCCINATE 25 MG TAB.SR.24H (FP) PO SCH (09:14)
--- NOTE | 2017-11-14 11:02 | EKG ---
Test Reason : Blood Pressure : / mmHG Vent. Rate : 058 BPM Atrial Rate : 058 BPM P-R Int : 126 ms QRS Dur : 128 ms QT Int : 446 ms P-R-T Axes : 025 -25 -05 degrees QTc Int : 437 ms SINUS BRADYCARDIA NON-SPECIFIC INTRA-VENTRICULAR CONDUCTION BLOCK NONSPECIFIC T WAVE ABNORMALITY ABNORMAL ECG WHEN COMPARED WITH ECG OF 02-SEP-2017 07:31, NO SIGNIFICANT CHANGE WAS FOUND Confirmed by ARA ALATORRE, SHELTON ([id number]) on 11/14/2017 11:02:26 AM Referred By: Confirmed By:SHELTON BULLOCK MD
[2017-11-14 14:34] VITALS: BP 138/72; PULSE 62; TEMP 97.8
--- NOTE | 2017-11-14 16:29 | DS ---
Physical Exam: SUBJECTIVE: Patient seen and examined - CHEY complete for SNF placement. No major overnight events. Shoulder pain improved with heating pads, Bengay. Denies fever/chills, PEREYRA/dizziness/vision changes, CP, SOB, chest tightness, N/V, ab pain, diarrhea, dysuria, peripheral numbness or weakness. - Start on Coumadin at 2mg during this admission. Contacted son, Blaine, and gave comprehensive explanation of coumadin/lovenox bridge, dietary restrictions , INR monitoring and indications. Son aware, all questions answered. OBJECTIVE: Vital Signs Intake & Output 11/11/17 11/12/17 11/13/17 11/14/17 23:59 23:59 23:59 23:59 Intake Total 120 100 Balance 120 100 Weight 74.843 kg Period Temp Pulse Resp BP Sys/Glass Pulse Ox Last 24 Hr 97.4 F-98.8 F 52-70 20-20 110-154/54-93 95-99 PHYSICAL EXAM GENERAL: Pt lying comfortably in bed, in NAD. Pt A&Ox1 HEAD: Normal with no signs of trauma. EYES: PERRL, extraocular movements intact, sclera anicteric, conjunctiva clear. No ptosis. ENT: Ears normal, nares patent, oropharynx clear without exudates, moist mucous membranes. NECK: Trachea midline, full range of motion, supple. LUNGS: Breath sounds equal, clear to auscultation bilaterally, no wheezes, no crackles, no accessory muscle use. HEART: Regular rate and rhythm, S1, S2 without murmur, rub or gallop. ABDOMEN: Soft, nontender, nondistended, normoactive bowel sounds, no guarding, no rebound, no hepatosplenomegaly, no masses. EXTREMITIES: Mild pain on palpation of posterior shoulder. Still no pain with L arm movement, passive or active. 2+ pulses, warm, well-perfused, no edema. NEUROLOGICAL: Cranial nerves II through XII grossly intact. Speech fluid, more linear now. Mild aphasia, agnosia PSYCH: Normal mood, normal affect. SKIN: Warm, dry, normal turgor, no rashes or lesions noted LABS Laboratory Results - last 24 hr CBC, BMP 11/11/17 07:42 11/14/17 06:52 01/31/18 01/31/18 02/01/18 16:53 22:24 06:30 PT with INR INR Sodium Potassium Chloride Carbon Dioxide Anion Gap BUN Creatinine POC Glucometer 225 278 193 Random Glucose Calcium 11/14/17 11/14/17 11/14/17 06:52 06:52 11:13 PT with INR 11.80 INR 1.04 Sodium 140 Potassium 4.5 Chloride 103 Carbon Dioxide 30 Anion Gap 7 L BUN 24 H Creatinine 0.9 POC Glucometer 250 Random Glucose 170 H Calcium 9.0 Microbiology 11/10/17 20:50 Urine - Urine Clean Catch Urine Culture - Final IMAGING: MRI from 02/2017: Brain MRI with no acute infarct. Large chronic left emoporoparietal cortical/subcortical infarct EK11/10/17 Vent rate 58 bpm, NM interval 126 ms , QRS duration 128 ms , Sinus bradycardia . nonspecific intraventricular block, nonspecific T wave abnormality No change since prior ECG on 09/02/1711/10 - Non con CT Head - Impression. No evidence of acute intracranial hemorrhage, edema, midline shift, mass effect, or skull fracture. Old left cerebral infarct involving the left temporal lobe, parietal lobe with compensatory ex vacuo dilatation of the left lateral ventricle including temporal horn. Chronic ischemic changes in the left maira insular region, basal ganglia. Moderate coalescence supratentorial chronic white matter microangiopathic ischemic changes (left > right). No CT evidence of acute territorial ischemia. Noncontrast Brain MRI 11/11/17: COMPARISON: Compared to prior CT scan of the head dated 11/10/2017. Previously visualized large area of encephalomalacia in the left temporal, frontal, parietal and occipital lobe is again seen with cortical laminar necrosis and ex vacuo dilatation of the left lateral ventricle relative to the right. There is an old lacunar infarct in the left basal ganglia, posteriorly. Small focus of increased T2 signal intensity with restricted diffusion in the right periventricular white matter at the level of the chin radiata as well as another focus of the right posterior frontal/parietal junction consistent with acute/subacute lacunar infarcts. Focal old blood product in the medial left thalamus consistent with an old hemorrhagic lacunar infarct. No mass lesion or acute intracranial hemorrhage are identified. There is no shift of the midline structures. The craniocervical junction appears unremarkable. There are also chronic microvascular ischemic changes in the kobe. Flow voids are present within the central intracranial arteries circulation with markedly attenuated flow in the left M2 branches. Both orbits appear unremarkable. No suspicious bone marrow abnormal signal is identified. IMPRESSION: Large area vesiculation again seen involving the left temporal, frontal, occipital and parietal bone with laminar necrosis and exvacuodilatation of the left lateral ventricle. Left basal ganglia old lacunar infarct. Left thalamic old hemorrhagic lacunar infarct, medially. Acute/ subacute lacunar infarct in the right periventricular white matter at the level of the chin radiata and in the right centrum semiovale ovale, posteriorly at the junction of the right posterior frontal and parietal lobe. Carotid doppler 11/11 - No evidence of hemodynamically significant stenosis. 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 Non-con CT scan notable for no acute bleed, mass effect, edema or skull fracture, however notable for prior region of L temporal and parietal lobe infarct. F/u MRI on 11/11 notable for new R lacunar infarct (remainder of study results shown above). Pt highest BP on presentation 190/81. EKG and Echo relatively normal. Carotid doppler study normal. Pt placed on ASA, statin and neurology was consulted. Per neurology, recommended continuation of current management, as well as long-term holter monitor, ASA/plavix/statin, BP and DM control and suggested that stroke is likely embolic, likely requiring long-term AC. 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 Heme consulted, sent hypercoag panel and concurred with cardiology/ neurology recs. Inpatient labs notable for A1C of 11.3, pt placed on levemir 14u and insulin sliding scale due to poor BG control. Pt complaining of L shoulder pain during stay, likely muscle spasm per neurology, cardiac work-up negative. Improved with Bengay and warm packs. Pt w/ no complaints and only mild aphasia during admission. Cleared for discharge to SNF on lovenox/coumadin bridge per cardiology/neurology, with f/u on pending hypercoaguable panel, possible outpt holter monitor and additional f/u with cardiology, hematology and PCP in one week after discharge. Date of Admission:11/11/17 Date of Discharge: 11/14/17 Pt medically stable and cleared for discharge to [facility] with outpt follow-up with PCP, cardiology, neurology and hematology in one week. Minutes to complete discharge: 35 Discharge Summary Reason For Visit: NON CARDIAC DYSSARTRIS, HYPERGLYCEMIA Current Active Problems Cerebrovascular accident (CVA) due to embolism (Acute) Diabetes (Acute) Dysarthria (Acute) Hyperglycemia (Acute) Condition: Good - Instructions Diet, Activity, Other Instructions: During your stay you were treated for a small stroke. Medications: The following medications were added to your regimen. Please take them as described below: Coumadin 2mg, once a day by mouth at night Crestor 40mg, once a day by mouth, before you go to bed Lovenox, one injection, twice a day until your INR is in the therapeutic range ( 2-3) Please continue taking all other home medication as previously prescribed. Please stop taking the following medications for now: Aspirin 81mg Please have your INR (a blood test for coaguability) checked in two days (on 11/16) and have your primary care physician or SNF MD review the results. Until then, continue to take your lovenox injection twice a day. Once your INR is in the correct range (between 2 and 3), you will only take the coumadin. Please continue to take the coumadin every day and have your INR checked regularly with your primary care physician. Follow-ups: Please schedule an appointment to see your primary care physician, Dr. Suárez, in one week for further management of your outpatient medication regimen. Dr. Suárez has been updated on your current admission and follow up. During your stay, you were seen by our cash person, Dr. Butler. Please call and schedule a follow-up appointment as an outpatient in the next week. His contact information has been provided in this packet. Please call to schedule an appointment. You will need to set up extended holter with him. Also follow up with Electrical Design Technologist in 1 week (information provided) Please inform your primary care physician to follow-up with your hypercoaguability panel results in the hospital. PENDING BLOODWORK: Hypercoagulability work up. Follow up: INR on 11/16/2017. Important dietary note for Coumadin* -One nutrient that can lessen warfarin's effectiveness is vitamin K. It's important to be consistent in how much vitamin K you get daily. The adequate intake level of vitamin K for adult men is 120 micrograms (mcg). For adult women , it's 90 mcg. While eating small amounts of foods that are rich in vitamin K shouldn't cause a problem, avoid eating or drinking large amounts of: Kale Spinach Kirby sprouts Parsley Cristopher greens Mustard greens Chard Green tea -Certain drinks can increase the effect of warfarin, leading to bleeding problems. Avoid or drink only small amounts of these drinks when taking warfarin : Cranberry juice Alcohol Please return to the hospital if you experience any of the following symptoms: - Persistent headache, dizziness or vision changes - Any weakness or numbness in one side of your body - Worsening speech - Facial droop -bleeding or new concerns - Any new or concerning symptoms Referrals: Daily Suárez MD [Primary Care Provider] - 1 Week Chacorta Butler MD [Staff Physician] - 1 Week Austin Ashley DO [Staff Physician] - 1 Month Louisa Sampson MD [Staff Physician] - 1 Week Disposition: [facility] - Home Medications Comprehensive Discharge Medication List: Ambulatory Orders Bimatoprost [Lumigan] 1 drop OU HS 02/08/17 Famotidine 20 mg PO DAILY 02/08/17 Metformin HCl [Glucophage -] 1,000 mg PO BIDAC tablet 02/12/17 Metoprolol Succinate [Toprol XL -] 25 mg PO BID #60 tab 02/12/17 Quetiapine Fumarate [Seroquel -] 25 mg PO HS 09/02/17 Insulin Glargine,Hum.rec.anlog [Lantus Solostar] 25 unit SQ DAILY 11/12/17 Enoxaparin [Lovenox -] 75 mg SQ Q12H #8 disp.syrin 11/14/17 Insulin Sliding Scale [Novolog Vial Sliding Scale -] 1 vial SQ ACHS units 11/14 Rosuvastatin Calcium [Crestor] 40 mg PO DAILY #30 tablet 11/14/17 Warfarin Na [Coumadin -] 2 mg PO DAILY@1800 #30 tablet 11/14/17 This patient is new to me today: No Emergency Visit: Yes ED Registration Date: 11/11/17 Care time: The patient presented to the Emergency Department on the above date and was hospitalized for further evaluation of their emergent condition. Critical Care patient: No - Discharge Referral [facility]erred to [facility] Med [facility] No
[2017-11-14] MEDS ORDERED: metFORMIN HCL 500 MG TABLET (FP) PO SCH (16:30)
[2017-11-14 16:31] LABS: ANTITHROMBIN III 111 % (75-135); DRVVT - 33.4 sec (0.0-47.0); PROTEIN C ACTIVITY 122 % (73-180); PROTEIN S FREE 63 % (57-157)
[2017-11-14] MEDS ORDERED: WARFARIN NA 2 MG TABLET (UD) PO SCH (18:00)
== END 2017-11-14 19:13 | DRG 65 ==
LOC: JER 15:23 → UNDOADMOB 22:40 → JERBED 22:40 → INTOOBSV 22:40 → JERBED 11-11 07:11 → J4S 11-11 14:22 → OBSVTOIN 11-11 15:23
PROVIDERS: ADMIT Internal Medicine; ATTEND Hospitalist
DX: I63.9 Cerebral infarction, unspecified (principal); I69.351 Hemiplegia and hemiparesis following cerebral infarction affecting right dominant side; G24.8 Other dystonia; R47.01 Aphasia; I10 Essential (primary) hypertension; E78.5 Hyperlipidemia, unspecified; K21.9 Gastro-esophageal reflux disease without esophagitis; E78.00 Pure hypercholesterolemia, unspecified; R06.02 Shortness of breath; F17.200 Nicotine dependence, unspecified, uncomplicated; G93.89 Other specified disorders of brain; R47.1 Dysarthria and anarthria; E11.65 Type 2 diabetes mellitus with hyperglycemia; M25.512 Pain in left shoulder; M54.2 Cervicalgia; M62.838 Other muscle spasm; R00.1 Bradycardia, unspecified; I45.19 Other right bundle-branch block
CPT/HCPCS: 36415; 70450-TC; 70551-TC; 80048; 80053; 80061; 81003; 81015; 81240; 81241; 81291; 82550; 82962; 83036; 83721; 83735; 84100; 84311; 84443; 84484; 85025; 85300; 85302; 85303; 85305; 85306; 85610; 85613; 85732; 86038; 87086; 93005; 93010; 93306-TC; 93880-TC; 97116-GP; 97161-GP; 99284-25; 99285-25; G0378